=== PATIENT | female | born 1950 | race Caucasian/White ===

== ENCOUNTER 2019-03-27 15:08 | Inpatient (IN) | payer MEDICARE ==
--- NOTE | 2019-03-27 15:31 | ED ---
Weakness HPI - General Stated complaint: community aquired pneumonia Time Seen by Provider: 03/27/19 15:23 Source: RN notes reviewed, old records reviewed - History of Present Illness Initial comments: This is a 5-year-old female the ER for evasive shortness breath, significant shortness of breath and not feeling well. Patient is presented to ER for evaluation of shortness of breath found to be required pneumonia with low pulse ox. Patient symptoms are improved here in the ER denying chest pain. MD Complaint: generalized weakness, lack of energy (Shortness of breath) -: days(s) Severity: moderate Severity scale (1-10): 5 Consistency: constant Improves with: rest, medication Worsens with: movement, exertion Context: recent illness, history of similar, other (Recent diagnosis of pneumonia) Associated Symptoms: fever/chills, shortness of breath - Related Data Home Medications Medication Instructions Recorded Confirmed Losartan Potassium [Cozaar] 50 mg PO DAILY 03/27/19 03/27/19 Simvastatin [Zocor] 20 mg PO DAILY 03/27/19 03/27/19 amLODIPine [Norvasc] 5 mg PO BID 03/27/19 03/27/19 Allergies Allergy/AdvReac Type Severity Reaction Status Date / Time No Known Allergies Allergy Unverified 03/27/19 15:46 Review of Systems ROS Statement: Those systems with pertinent positive or pertinent negative responses have been documented in the HPI. ROS Other: All systems not noted in ROS Statement are negative. General Exam General appearance: alert, in no apparent distress Head exam: Present: atraumatic, normocephalic, normal inspection Eye exam: Present: normal appearance, PERRL, EOMI. Absent: scleral icterus, conjunctival injection, periorbital swelling ENT exam: Present: normal exam, mucous membranes moist Neck exam: Present: normal inspection. Absent: tenderness, meningismus, lymphadenopathy Respiratory exam: Present: normal lung sounds bilaterally, rales, rhonchi, accessory muscle use, decreased breath sounds. Absent: respiratory distress, wheezes, stridor Cardiovascular Exam: Present: regular rate, normal rhythm, normal heart sounds. Absent: systolic murmur, diastolic murmur, rubs, gallop, clicks GI/Abdominal exam: Present: soft, normal bowel sounds. Absent: distended, tenderness, guarding, rebound, rigid Extremities exam: Present: normal inspection, full ROM, normal capillary refill. Absent: tenderness, pedal edema, joint swelling, calf tenderness Back exam: Present: normal inspection Neurological exam: Present: alert, oriented X3, CN II-XII intact Psychiatric exam: Present: normal affect, normal mood Skin exam: Present: warm, dry, intact, normal color. Absent: rash Course - Reevaluation(s) Reevaluation #1: 03/27/19 15:52 Medical record and transfer paperwork is reviewed Reevaluation #2: 03/27/19 15:52 Patient's symptoms are improved Medical Decision Making - Medical Decision Making 68 female who is accepted known transferred outpatient sibs in transfer for shortness of breath positive pneumonia. Patient be admitted for IV antibiotics breathing treatments and monitoring of pulse ox - Radiology Data Radiology results: report reviewed (Chest x-ray positive for pneumonia) Disposition Clinical Impression: Community acquired bacterial pneumonia Disposition: ADMITTED IP TO THIS HOSP Condition: Fair Is patient prescribed a controlled substance at d/c from ED?: No Referrals: Gilmer Sarah MD [Primary Care Provider] - 1-2 days
[2019-03-27] MEDS ORDERED: AZITHROMYCIN 500 MG in SODIUM CHLORIDE 0.9% 250 ML IVPB STA (15:49)
[2019-03-27] MEDS ORDERED: PNEUMONIA PROTOCOL UTILIZED 1 EACH MISC PO PRN (15:49)
[2019-03-27] MEDS: SODIUM CHLORIDE 0.9% 1,000 ML IV SCH (17:20)
[2019-03-27] MEDS ORDERED: ALPRAZolam 0.25 MG TAB PO PRN (17:57)
[2019-03-27] MEDS ORDERED: HYDROmorphone 0.5 MG/0.5 ML SYRINGE IVP PRN (17:57)
[2019-03-27] MEDS: IPRATROPIUM-ALBUTEROL 3 ML NEB INHALATION SCH ×2 (18:24→20:14)
--- NOTE | 2019-03-27 18:49 | XR ---
EXAMINATION TYPE: XR chest 1V portable DATE OF EXAM: 03/27/2019 Comparison: None Clinical History: 68 year-old female CHF Findings: Heart mildly enlarged. Perihilar densities and diffuse interstitial opacities. No pleural effusion. Impression: CHF with interstitial pulmonary edema.
[2019-03-27] MEDS: methylPREDNISolone SOD SUCCI 125 MG/2 ML VIAL IV SCH (19:58)
[2019-03-27] MEDS: amLODIPine 5 MG TAB PO SCH (19:58)
[2019-03-27] MEDS: NICOTINE 14MG/24HR PATCH TRANSDERM SCH (19:58)
[2019-03-27 21:19] LABS: Glucose,Whole Blood 140 mg/dL (75-99)
[2019-03-27] MEDS: INSULIN ASPART (NovoLOG) 100 UNIT/ML VIAL SQ SCH (21:47)
--- NOTE | 2019-03-27 22:51 | HP ---
HISTORY AND PHYSICAL DATE OF SERVICE: 03/27/2019 CHIEF COMPLAINT: Shortness of breath and not feeling well. HISTORY OF PRESENT ILLNESS: This 68-year-old woman with a past medical history of multiple medical problems including history of hypertension, hyperlipidemia, history of breast cancer, history of nicotine dependence, being followed by primary physician in the outpatient setting was living in the [place] area. The patient complained of shortness of breath and cough and sputum for past several days. Patient presented to [facility]. The chest x-ray and CT scan of the chest was also done which showed bilateral pneumonia. The patient was directly transferred to [facility] to the ER for further evaluation and treatment. There is no history of any rigors, chills, history of headache, loss of conscious or seizures at this time. Patient is complaining of generalized weakness and tiredness. The patient has been followed by Dr. Sarah in the outpatient setting. PAST MEDICAL HISTORY: History of hyperlipidemia, history of breast cancer, history of breast surgery. MEDICATIONS: Home medications are: 1. Norvasc 5 mg p.o. b.i.d. 2. Zocor 20 mg daily. 3. Cozaar 50 mg daily. ALLERGIES: None. FAMILY HISTORY: No history of heart disease or strokes in the family. SOCIAL HISTORY: History of continued smoking. No history of alcohol intake. REVIEW OF SYSTEMS: ENT diminished vision, diminished hearing. CARDIOVASCULAR as mentioned earlier. RESPIRATORY: As mentioned earlier. GI no nausea or vomiting. : No dysuria. Nervous System: No numbness or weakness. ALLERGY/IMMUNOLOGY: No asthma or hayfever. MUSCULOSKELETAL: As mentioned earlier. HEMATOLOGY/ONCOLOGY: No history of anemia. ENDOCRINE: No history of diabetes or hypothyroidism. CONSTITUTIONAL: As mentioned earlier. DERMATOLOGY: Negative. RHEUMATOLOGY negative. PSYCHIATRY as mentioned. PHYSICAL EXAMINATION: Alert and oriented times three. Pulse is 75, blood pressure 125/56, respiration 20, temperature 98.4, pulse ox 97% on non-rebreather mask. HEENT: Conjunctivae normal. Oral mucosa moist. NECK is no jugular venous distention. No carotid bruit. No lymph node enlargement. CARDIOVASCULAR: S1, S2 muffled. No S3, no S4. RESPIRATORY: Breath sounds diminished in the bases. Bilateral scattered rhonchi and crackles. Expiratory wheezing also present. ABDOMEN: Soft, nontender. Nontender. No mass palpable. LEGS: No edema. No swelling. NERVOUS SYSTEM: Higher functions as mentioned earlier. Moves all 4 limbs. No focal motor or sensory deficits. LYMPHATICS: No lymph nodes palpable in the neck, axillae or groin. SKIN: No ulcer, no rashes and no bleeding. JOINTS: No active arthropathy. LAB STUDIES: At this time shows labs are pending at this time. ASSESSMENT: 1. Chronic obstructive pulmonary disease acute exacerbation with acute hypoxic respiratory failure with possible bilateral pneumonia possibly gram-negative with possible sepsis. 2. Change in mental status, metabolic encephalopathy secondary to multiple factors and possible sepsis. 3. Continued ongoing nicotine dependence. 4. Hyperlipidemia. 5. History of breast cancer surgery. 6. History of nicotine dependence. 7. Obesity, body mass of 33.5. RECOMMENDATIONS AND DISCUSSION: In this 68-year-old woman who presented with multiple complex medical issues, we will monitor the patient closely, continue the current medications, management and symptomatic treatment. We will initiate broad-spectrum IV antibiotics, steroids, bronchodilators. Closely follow with Pulmonary. Repeat x-ray. Repeat labs. Prognosis extremely guarded because of multiple complex medical issues. further recommendations to follow. Copy of this dictation being forwarded to Dr. Sarah who is the primary physician. MMODL / IJN: [id number] /
[2019-03-28] MEDS: methylPREDNISolone SOD SUCCI 125 MG/2 ML VIAL IV SCH ×5 (00:57→23:30)
[2019-03-28] MEDS: SODIUM CHLORIDE 0.9% 1,000 ML IV SCH ×2 (00:58→23:31)
[2019-03-28] MEDS: guaiFENesin-DM 100-10MG/5ML 10 ML CUP PO PRN ×3 (05:21→20:45)
[2019-03-28 07:27] LABS: Glucose,Whole Blood 175 mg/dL (75-99)
[2019-03-28] MEDS: ENOXAPARIN 40 MG/0.4 ML SYRINGE SQ SCH (08:15)
[2019-03-28] MEDS: PANTOPRAZOLE 40 MG TABLET PO SCH (08:15)
[2019-03-28] MEDS: NICOTINE 14MG/24HR PATCH TRANSDERM SCH (08:15)
[2019-03-28] MEDS: amLODIPine 5 MG TAB PO SCH ×2 (08:15→19:20)
[2019-03-28] MEDS: AZITHROMYCIN 500 MG TAB PO SCH (08:15)
[2019-03-28] MEDS: INSULIN ASPART (NovoLOG) 100 UNIT/ML VIAL SQ SCH ×4 (08:15→20:35)
[2019-03-28] MEDS: ATORVASTATIN 10 MG TAB PO SCH (08:15)
[2019-03-28] MEDS: LOSARTAN 50 MG TAB PO SCH (08:15)
[2019-03-28] MEDS: IPRATROPIUM-ALBUTEROL 3 ML NEB INHALATION SCH ×4 (09:24→18:39)
--- NOTE | 2019-03-28 10:00 | XR ---
EXAMINATION TYPE: XR chest 2V DATE OF EXAM: 03/28/2019 COMPARISON: 03/27/2019 TECHNIQUE: PA and lateral views submitted. HISTORY: Shortness of breath FINDINGS: There is a diffuse interstitial pattern and cardiomegaly. Atherosclerotic change aorta. Arthropathy o f the shoulders. The heart is enlarged. No pleural effusion. IMPRESSION: 1. Diffuse interstitial pattern correlate for venous congestion or interstitial pneumonitis.
[2019-03-28 10:47] LABS: Basophils % (A) 0 %; Eosinophils % (A) 0 %; HCT 36.7 % (34.0-46.0); HGB 11.3 gm/dL (11.4-16.0); Hypochromasia Moderate; Lymphocytes # (A) 0.7 k/uL (1.0-4.8); Lymphocytes % (A) 6 %; MCH 27.4 pg (25.0-35.0); MCHC 30.7 g/dL (31.0-37.0); MCV 89.1 fL (80.0-100.0); Mean Platelet Volume 7.5; Monocytes # (A) 0.4 k/uL (0-1.0); Monocytes % (A) 3 %; Neutrophils # (A) 9.5 k/uL (1.3-7.7); Neutrophils % (A) 89 %; Platelet Count 270 k/uL (150-450); RBC 4.12 m/uL (3.80-5.40); WBC 10.7 k/uL (3.8-10.6)
[2019-03-28 11:09] LABS: African American GFR (CKD) >90 (>60 ml/min/1.73 sqM); Anion Gap 5 mmol/L; Blood Urea Nitrogen 32 mg/dL (7-17); Calcium 8.8 mg/dL (8.4-10.2); Carbon Dioxide 32 mmol/L (22-30); Chloride 105 mmol/L (98-107); Glucose 174 mg/dL (74-99); Potassium 4.9 mmol/L (3.5-5.1); Sodium 142 mmol/L (137-145)
[2019-03-28 12:00] LABS: Glucose,Whole Blood 158 mg/dL (75-99)
--- NOTE | 2019-03-28 12:37 | P.CNPUL ---
History of Present Illness Consult date: 03/28/19 Requesting physician: Kavon Selby Reason for consult: dyspnea Chief complaint: Shortness of breath, cough, congestion History of present illness: This is a pleasant 68-year-old female patient who follows with Dr. Sarah as her primary care physician. She has a history of hypertension, hyperlipidemia, chronic tobacco dependence, breast cancer. She was transferred here from [facility] emergency room for suspected bilateral community-acquired pneumonia and altered mental status. She is seen today in consultation on the regular medical floor. She is currently awake and alert. She was quite bronchospastic and wheezy. She is currently afebrile. Maintaining O2 saturations in the low 90s on 3 L/m per nasal cannula. Hemodynamically stable. White count 10.7. Hemoglobin 11.3. Creatinine 0.56. She's been initiated on DuoNeb inhalations, antibiotics in the form of ceftriaxone and azithromycin, IV Solu-Medrol. NicoDerm patch is in place. Review of Systems REVIEW OF SYSTEMS: CONSTITUTIONAL: Denies any recent significant weight loss or weight gain. EYES: Denies change in vision. EARS, NOSE, MOUTH, THROAT: Denies headaches, denies sore throat. CARDIOVASCULAR: Denies chest pain, palpitations or syncopal episodes. RESPIRATORY: Positive for shortness of breath, cough, congestion no hemoptysis. GASTROINTESTINAL: Denies change in appetite, denies abdominal pain GENITOURINARY: Denies hematuria, denies infections. MUSKULOSKELETAL: Denies pain, denies swelling. INTEGUMENTARY: Denies rash, denies eczema. NEUROLOGICAL: Denies recent memory loss, no recent seizure activity. PSYCHIATRIC: Denies anxiety, denies depression. HEMATOLOGIC/LYMPHATIC: Denies anemia, denies enlarged lymph nodes. Past Medical History Past Medical History: Cancer, Hyperlipidemia History of Any Multi-Drug Resistant Organisms: None Reported Additional Past Surgical History / Comment(s): BREAST SX Past Psychological History: No Psychological Hx Reported Smoking Status: Current every day smoker Past Alcohol Use History: None Reported Past Drug Use History: None Reported Medications and Allergies Home Medications Medication Instructions Recorded Confirmed Type Losartan Potassium [Cozaar] 50 mg PO DAILY 03/27/19 03/27/19 History Simvastatin [Zocor] 20 mg PO DAILY 03/27/19 03/27/19 History amLODIPine [Norvasc] 5 mg PO BID 03/27/19 03/27/19 History Allergies Allergy/AdvReac Type Severity Reaction Status Date / Time No Known Allergies Allergy Unverified 03/27/19 16:11 Physical Exam Vitals: Vital Signs Temp Pulse Pulse Resp BP BP Pulse Ox 03/28/19 09:35 86 03/28/19 09:27 82 03/28/19 08:00 75 17 03/28/19 06:46 98.0 F 75 17 131/70 92 L 03/27/19 20:26 74 03/27/19 20:14 71 22 97 03/27/19 19:33 98.0 F 68 22 151/76 94 L 03/27/19 17:58 98.1 F 64 18 115/56 93 L 03/27/19 17:28 75 20 125/56 97 03/27/19 16:10 62 20 119/54 90 L 03/27/19 15:15 98.4 F 68 20 115/55 98 Intake and Output 03/27/19 03/28/19 03/28/19 22:59 06:59 14:59 Intake Total 100 Output Total 225 Balance 100 -225 Intake: Oral 100 Output: Urine 225 Other: Voiding Method Indwelling Catheter Indwelling Catheter # Bowel Movements 1 Weight 99.79 kg GENERAL EXAM: Pleasant obese 68-year-old female patient. Alert, fairly comfortable in no apparent distress. On 3 L nasal cannula. HEAD: Normocephalic. EYES: Normal reaction of pupils, equal size. NOSE: Clear with pink turbinates. THROAT: No erythema or exudates. NECK: No masses, no JVD. CHEST: No chest wall deformity. LUNGS: Equal air entry with bilateral scattered rhonchi, wheeze. CVS: S1 and S2 normal with no audible murmur, regular rhythm. ABDOMEN: No hepatosplenomegaly, normal bowel sounds, no guarding or rigidity. SPINE: No scoliosis or deformity SKIN: No rashes CENTRAL NERVOUS SYSTEM: No focal deficits, tone is normal in all 4 extremities. EXTREMITIES: There is no peripheral edema. No clubbing, no cyanosis. Periph eral pulses are intact. Results - Laboratory Findings CBC and BMP: 03/28/19 10:27 03/28/19 10:27 Abnormal lab findings: Abnormal Labs 03/27/19 03/28/19 03/28/19 21:07 07:25 10:27 WBC 10.7 H Hgb 11.3 L MCHC 30.7 L Neutrophils # 9.5 H Lymphocytes # 0.7 L Carbon Dioxide BUN Glucose POC Glucose (mg/dL) 140 H 175 H 03/28/19 03/28/19 10:27 11:58 WBC Hgb MCHC Neutrophils # Lymphocytes # Carbon Dioxide 32 H BUN 32 H Glucose 174 H POC Glucose (mg/dL) 158 H - Diagnostic Findings Chest x-ray: image reviewed Assessment and Plan Assessment: Impression: #1 Acute hypoxic respiratory failure secondary to suspected community-acquired pneumonia versus pneumonitis, COPD, pulmonary edema. #2 Altered mental status and weakness, suspect metabolic encephalopathy. Recovered. #3 Chronic and ongoing tobacco dependence. #4 Hyperlipidemia. #5 Hypertension. #6 Obesity. Plan: The patient was seen and evaluated by Dr. Brewer. Chest x-ray and labs reviewed. Suspect some component of pulmonary edema. We'll obtain a proBNP, pro-calcitonin, echocardiogram. Give Lasix 40 mg IVP 1. Continue with antibiotics, bronchodilators, steroids. She is educated regarding the importance of complete smoking cessation. NicoDerm patch is in place. We will continue to follow and make further recommendations based on her clinical statu s. I, the cosigning physician, performed a history & physical examination of the patient. Lungs sounds with crackles in posterior bases, end expiratory wheeze, diminished. Maintaining good O2 saturations in the 90s on 3 L/m per nasal cannula. I discussed the assessment and plan of care with my nurse practitioner, Grace Martin. I attest to the above note as dictated by her. Time with Patient: Greater than 30
[2019-03-28] MEDS ORDERED: FUROSEMIDE 10 MG/ML 4 ML VIAL IV STA (12:38)
[2019-03-28 17:07] LABS: Glucose,Whole Blood 163 mg/dL (75-99)
[2019-03-28] MEDS: FUROSEMIDE 10 MG/ML 2 ML VIAL IV SCH (19:20)
[2019-03-28 20:32] LABS: Glucose,Whole Blood 181 mg/dL (75-99)
--- NOTE | 2019-03-29 00:07 | P.PN ---
Subjective Progress Note Date: 03/28/19 Principal diagnosis: Community acquired pneumonia Patient is a 68-year-old female with a known history of hypertension, hyperlipidemia, chronic nicotine addiction and history of breast cancer was transferred from [facility] due to altered mental status and possible bilateral pneumonia, community-acquired. 03/28/2019 Patient is still having shortness of breath. Denied any complaints of chest pain. Does have cough without much sputum production. Currently on oxygen via nasal cannula. Currently being continued on antibiotics in the form of ceftriaxone and azithromycin. On breathing treatments and IV Solu-Medrol. Chest x-ray showed diffuse interstitial pattern correlate for venous congestion or interstitial pneumonitis. Pulmonary is following. Active Medications Generic Name Dose Route Start Last Admin Trade Name Freq PRN Reason Stop Dose Admin Albuterol/Ipratropium 3 ml 03/27/19 16:00 03/28/19 18:39 Duoneb 0.5 Mg-3 Mg/3 Ml Soln INHALATION 3 ml RT-QID YULIET Administration Alprazolam 0.25 mg 03/27/19 17:57 Xanax PO TID PRN Anxiety Amlodipine Besylate 5 mg 03/27/19 21:00 03/28/19 19:20 Norvasc PO 5 mg BID YULIET Administration Atorvastatin Calcium 10 mg 03/28/19 09:00 03/28/19 08:15 Lipitor PO 10 mg DAILY YULIET Administration Azithromycin 500 mg 03/28/19 09:00 03/28/19 08:15 Zithromax PO 500 mg DAILY YULIET Administration Enoxaparin Sodium 40 mg 03/28/19 09:00 03/28/19 08:15 Lovenox SQ 40 mg DAILY YULIET Administration Furosemide 20 mg 03/28/19 21:00 03/28/19 19:20 Lasix IV 20 mg Q12HR YULIET Administration Guaifenesin/Dextromethorphan 10 ml 03/28/19 05:01 03/28/19 20:45 Robitussin Dm PO 10 ml Q6H PRN Administration Cough Hydromorphone HCl 0.5 mg 03/27/19 17:57 Dilaudid IVP Q6HR PRN Severe Pain Ceftriaxone Sodium 1 gm/ 50 mls @ 100 mls/hr 03/28/19 09:00 03/28/19 08:19 Sodium Chloride IVPB 03/31/19 09:01 100 mls/hr Q24HR YULIET Administration Sodium Chloride 1,000 mls @ 20 mls/hr 03/27/19 16:00 03/28/19 23:31 Saline 0.9% IV Not Given .Q24H UYLIET Insulin Aspart 0 unit 03/27/19 21:00 03/28/19 20:35 Novolog SQ 2 unit ACHS YULIET Administration Protocol Losartan Potassium 50 mg 03/28/19 09:00 03/28/19 08:15 Cozaar PO 50 mg DAILY YULIET Administration Methylprednisolone Sodium Succinate 60 mg 03/27/19 18:00 03/28/19 23:30 Solu-Medrol IV 60 mg Q6HR YULIET Administration Miscellaneous Information 1 each 03/27/19 15:49 Pneumonia Protocol Utilized PO ONCE PRN Per Protocol Nicotine 1 patch 03/27/19 18:00 03/28/19 08:15 Habitrol 14mg/24hr Patch TRANSDERM 1 patch DAILY YULIET Administration Pantoprazole Sodium 40 mg 03/28/19 07:30 03/28/19 08:15 Protonix PO 40 mg [id number] YULIET Administration Objective - Vital Signs Vital signs: Vital Signs Temp 98.0 F 03/28/19 06:46 Pulse 86 03/28/19 09:35 Resp 17 03/28/19 08:00 BP 131/70 03/28/19 06:46 Pulse Ox 92 L 03/28/19 06:46 Intake & Output 03/27/19 03/28/19 03/28/19 18:59 06:59 18:59 Intake Total 100 Output Total 225 Balance -125 Weight 99.79 kg Intake: Oral 100 Output: Urine 225 Other: Voiding Method Indwelling Catheter Indwelling Catheter # Bowel Movements 1 - Exam PHYSICAL EXAMINATION: Patient is lying in the bed comfortably, no acute distress, awake alert and oriented.. HEENT: Normocephalic. Neck is supple. Pupils reactive. Nostrils clear. Oral cavity is moist. Ears reveal no drainage. Neck reveals no JVD, carotid bruits, or thyromegaly. CHEST EXAMINATION: Trachea is central. Symmetrical expansion. Bilateral coarse breath sounds and expiratory wheeze CARDIAC: Normal S1, S2 with no gallops. No murmurs ABDOMEN: Soft. Bowel sounds normal. No organomegaly. No abdominal bruits. Extremities: reveal no edema. No clubbing or cyanosis Neurologically awake, alert, oriented x3 with well-coordinated movements. No focal deficits noted Skin: No rash or skin lesions. Psychiatric: Coperative. Nonsuicidal Musculoskeletal: No joint swelling or deformity. Normal range of motion. - Labs CBC & Chem 7: 03/28/19 10:27 03/28/19 10:27 Labs: Abnormal Lab Results - Last 24 Hours (Table) 03/27/19 03/28/19 03/28/19 Range/Units 21:07 07:25 10:27 WBC 10.7 H (3.8-10.6) k/uL Hgb 11.3 L (11.4-16.0) gm/dL MCHC 30.7 L (31.0-37.0) g/dL Neutrophils # 9.5 H (1.3-7.7) k/uL Lymphocytes # 0.7 L (1.0-4.8) k/uL Carbon Dioxide (22-30) mmol/L BUN (7-17) mg/dL Glucose (74-99) mg/dL POC Glucose (mg/dL) 140 H 175 H (75-99) mg/dL 03/28/19 03/28/19 Range/Units 10:27 11:58 WBC (3.8-10.6) k/uL Hgb (11.4-16.0) gm/dL MCHC (31.0-37.0) g/dL Neutrophils # (1.3-7.7) k/uL Lymphocytes # (1.0-4.8) k/uL Carbon Dioxide 32 H (22-30) mmol/L BUN 32 H (7-17) mg/dL Glucose 174 H (74-99) mg/dL POC Glucose (mg/dL) 158 H (75-99) mg/dL Assessment and Plan Assessment: Acute hypoxic respiratory failure secondary to COPD exacerbation Possible community-acquired pneumonia Pulmonary venous congestion and interstitial pneumonitis Hypertension Hyperlipidemia Obesity with BMI 33.5 Ongoing nicotine addiction Plan: Patient be continued on IV antibiotics in the form of ceftriaxone and azithromycin. Continue with IV steroids and breathing treatments. Will hold IV fluids and continued with the oxygen therapy and monitor closely. Pulmonary was consulted. Smoking cessation has been counseled extensively. Further recommendations based on the clinical course. Time with Patient: Greater than 30
[2019-03-29] MEDS: methylPREDNISolone SOD SUCCI 125 MG/2 ML VIAL IV SCH ×4 (02:54→23:17)
[2019-03-29] MEDS: guaiFENesin-DM 100-10MG/5ML 10 ML CUP PO PRN (02:54)
[2019-03-29 06:59] LABS: Glucose,Whole Blood 171 mg/dL (75-99)
[2019-03-29] MEDS: IPRATROPIUM-ALBUTEROL 3 ML NEB INHALATION SCH ×4 (07:26→20:14)
--- NOTE | 2019-03-29 07:50 | XR ---
EXAMINATION TYPE: XR chest 1V DATE OF EXAM: 03/29/2019 COMPARISON: 04/07/2018 HISTORY: Shortness of breath TECHNIQUE: Single frontal view of the chest is obtained. FINDINGS: There is a diffuse interstitial pattern and cardiomegaly. Atherosclerotic change aorta. Ar thropathy of the shoulders. The heart is enlarged. No pleural effusion. IMPRESSION: 1. Diffuse interstitial pattern correlate for venous congestion or interstitial pneumonitis. Findings stable.
[2019-03-29] MEDS: amLODIPine 5 MG TAB PO SCH ×2 (08:04→19:59)
[2019-03-29] MEDS: LOSARTAN 50 MG TAB PO SCH (08:04)
[2019-03-29] MEDS: PANTOPRAZOLE 40 MG TABLET PO SCH (08:10)
[2019-03-29] MEDS: ATORVASTATIN 10 MG TAB PO SCH (08:10)
[2019-03-29] MEDS: NICOTINE 14MG/24HR PATCH TRANSDERM SCH (08:10)
[2019-03-29] MEDS: FUROSEMIDE 10 MG/ML 2 ML VIAL IV SCH (08:10)
[2019-03-29] MEDS: ENOXAPARIN 40 MG/0.4 ML SYRINGE SQ SCH (08:11)
[2019-03-29] MEDS: INSULIN ASPART (NovoLOG) 100 UNIT/ML VIAL SQ SCH ×4 (08:11→21:11)
[2019-03-29] MEDS: AZITHROMYCIN 500 MG TAB PO SCH (08:11)
--- NOTE | 2019-03-29 09:11 | ECHOF ---
Referral Reason:Pulmonary edema MEASUREMENTS -------- HEIGHT: 172.7 cm WEIGHT: 99.8 kg BP: 131/70 RVIDd: 3.5 cm (< 3.3) IVSd: 1.2 cm (0.6 - 1.1) LVIDd: 5.2 cm (3.9 - 5.3) LVPWd: 1.3 cm (0.6 - 1.1) IVSs: 1.5 cm LVIDs: 4.0 cm LVPWs: 1.7 cm LA Diam: 3.9 cm (2.7 - 3.8) LAESV Index (A-L): 17.39 ml/m Ao Diam: 3.1 cm (2.0 - 3.7) AV Cusp: 2.0 cm (1.5 - 2.6) EPSS: 0.5 cm MV E Spencer: 1.25 m/s MV DecT: 226 ms MV A Spencer: 0.89 m/s MV E/A Ratio: 1.41 AV maxP.02 mmHg AV meanP.16 mmHg RAP: 15.00 mmHg RVSP: 51.99 mmHg MV EF SLOPE: 65.00 mm/s (70 - 150) MV EXCURSION: 1.62 cm (> 18.000) FINDINGS -------- Sinus rhythm. This was a technically good study. The left ventricular size is normal. There is mild concentric left ventricular hypertrophy. Overa ll left ventricular systolic function is normal with, an EF between 60 - 65 %. The right ventricle is mildly enlarged. Left atrium is normal size by volume. The right atrium is normal in size and function. Interatrial and interventricular septum intact. Aortic valve is trileaflet and is mildly thickened. Peak/mean gradient across the valve is 14.02mmH g / 8.16mmHg. The mitral valve leaflets are mildly thickened. Mild mitral regurgitation is present. Mild tricuspid regurgitation present. There is moderate pulmonary hypertension. The right ventric ular systolic pressure, as measured by Doppler, is 51.99mmHg. Trace/mild (physiologic) pulmonic regurgitation. The aortic root size is normal. The inferior vena cava is dilated with poor inspiratory collapse which is consistent with estimated r ight atrial pressure of 15 mmHg. There is no pericardial effusion. CONCLUSIONS -------- 1. Sinus rhythm. 2. This was a technically good study. 3. The left ventricular size is normal. 4. There is mild concentric left ventricular hypertrophy. 5. Overall left ventricular systolic function is normal with, an EF between 60 - 65 %. 6. The right ventricle is mildly enlarged. 7. Left atrium is normal size by volume. 8. The right atrium is normal in size and function. 9. Interatrial and interventricular septum intact. 10. Aortic valve is trileaflet and is mildly thickened. 11. Peak/mean gradient across the valve is 14.02mmHg / 8.16mmHg. 12. The mitral valve leaflets are mildly thickened. 13. Mild mitral regurgitation is present. 14. Mild tricuspid regurgitation present. 15. There is moderate pulmonary hypertension. 16. The right ventricular systolic pressure, as measured by Doppler, is 51.99mmHg. 17. Trace/mild (physiologic) pulmonic regurgitation. 18. The aortic root size is normal. 19. The inferior vena cava is dilated with poor inspiratory collapse which is consistent with estimat ed right atrial pressure of 15 mmHg. 20. There is no pericardial effusion. CAPACITY MANAGER: HARSHIL Sandy
[2019-03-29 10:12] LABS: Basophils % (A) 0 %; Eosinophils % (A) 0 %; HCT 39.4 % (34.0-46.0); HGB 11.9 gm/dL (11.4-16.0); Hypochromasia Slight; Lymphocytes # (A) 0.7 k/uL (1.0-4.8); Lymphocytes % (A) 5 %; MCH 26.7 pg (25.0-35.0); MCHC 30.2 g/dL (31.0-37.0); MCV 88.5 fL (80.0-100.0); Mean Platelet Volume 7.9; Monocytes # (A) 0.4 k/uL (0-1.0); Monocytes % (A) 3 %; Neutrophils # (A) 12.5 k/uL (1.3-7.7); Neutrophils % (A) 91 %; Platelet Count 353 k/uL (150-450); RBC 4.45 m/uL (3.80-5.40); RDW 13.3 % (11.5-15.5); WBC 13.8 k/uL (3.8-10.6)
[2019-03-29 10:27] LABS: Calcium 9.3 mg/dL (8.4-10.2); Potassium 4.5 mmol/L (3.5-5.1)
[2019-03-29 11:52] LABS: Glucose,Whole Blood 210 mg/dL (75-99)
--- NOTE | 2019-03-29 13:43 | P.PN ---
Subjective Progress Note Date: 03/29/19 Principal diagnosis: Shortness of breath, cough and congestion This is a pleasant 68-year-old female patient who follows with Dr. Sarah as her primary care physician. She has a history of hypertension, hyperlipidemia, chronic tobacco dependence, breast cancer. She was transferred here from [place] emergency room for suspected bilateral community-acquired pneumonia and altered mental status. She is seen today in consultation on the regular medical floor. She is currently awake and alert. She was quite bronchospastic and wheezy. She is currently afebrile. Maintaining O2 saturations in the low 90s on 3 L/m per nasal cannula. Hemodynamically stable. White count 10.7. Hemoglobin 11.3. Creatinine 0.56. She's been initiated on DuoNeb inhalations, antibiotics in the form of ceftriaxone and azithromycin, IV Solu-Medrol. NicoDerm patch is in place. On 03/29/2017 patient seen in follow-up on medical surgical floor. Still wheezy and congested, but slightly improved since yesterday, still coughing quite a bit. Today's chest x-ray has been reviewed showing diffuse interstitial pattern and interstitial prominence, likely related to fluid overload and congestive heart failure. She is maintaining negative fluid balance, remains on IV Lasix at 20 mg every 12 hours, we'll increase IV Lasix. His labs have been reviewed, showing white blood cell count of 13.8, hemoglobin of 11.9, electrolytes were within normal limits, BUN is 50, creatinine 0.85. Objective - Vital Signs Vital signs: Vital Signs Temp 98.8 F 03/29/19 05:00 Pulse 78 03/29/19 11:21 Resp 20 03/29/19 05:00 BP 99/70 03/29/19 05:00 Pulse Ox 95 03/29/19 07:26 Intake & Output 03/28/19 03/29/19 03/29/19 18:59 06:59 18:59 Intake Total 50 Output Total 800 100 Balance -800 -100 50 Weight 98.43 kg Intake: IV 50 cefTRIAXone 1 gm In 50 Sodium Chloride 0.9% 50 ml @ 100 mls/hr IVPB Q24HR [facility] Rx#:[id number] Output: Urine 800 100 Other: Voiding Method Bedside Commode Bedside Commode # Voids 3 1 # Bowel Movements 1 - Exam GENERAL EXAM: Alert, pleasant, 68-year-old white female seen in bed, on 2 L of oxygen, has frequent congested cough comfortable in no apparent distress. HEAD: Normocephalic/atraumatic. EYES: Normal reaction of pupils, equal size. Conjunctiva pink, sclera white. NOSE: Clear with pink turbinates. THROAT: No erythema or exudates. NECK: No masses, no JVD, no thyroid enlargement, no adenopathy. CHEST: No chest wall deformity. Symmetrical expansion. LUNGS: Equal air entry with diffuse wheezes and rhonchi CVS: Regular rate and rhythm, normal S1 and S2, no gallops, no murmurs, no rubs ABDOMEN: Soft, nontender. No hepatosplenomegaly, normal bowel sounds, no guarding or rigidity. EXTREMITIES: No clubbing, no edema, no cyanosis, 2+ pulses and upper and lower extremities. MUSCULOSKELETAL: Muscle strength and tone normal. SPINE: No scoliosis or deformity SKIN: No rashes CENTRAL NERVOUS SYSTEM: Alert and oriented -3. No focal deficits, tone is normal in all 4 extremities. PSYCHIATRIC: Alert and oriented -3. Appropriate affect. Intact judgment and insight. - Labs CBC & Chem 7: 03/29/19 09:18 03/29/19 09:18 Labs: Abnormal Lab Results - Last 24 Hours (Table) 03/28/19 03/28/19 03/29/19 Range/Units 17:03 20:04 06:44 WBC (3.8-10.6) k/uL MCHC (31.0-37.0) g/dL Neutrophils # (1.3-7.7) k/uL Lymphocytes # (1.0-4.8) k/uL BUN (7-17) mg/dL Glucose (74-99) mg/dL POC Glucose (mg/dL) 163 H 181 H 171 H (75-99) mg/dL 03/29/19 03/29/19 03/29/19 Range/Units 09:18 09:18 11:27 WBC 13.8 H (3.8-10.6) k/uL MCHC 30.2 L (31.0-37.0) g/dL Neutrophils # 12.5 H (1.3-7.7) k/uL Lymphocytes # 0.7 L (1.0-4.8) k/uL BUN 50 H (7-17) mg/dL Glucose 237 H (74-99) mg/dL POC Glucose (mg/dL) 210 H (75-99) mg/dL Microbiology - Last 24 Hours (Table) 03/27/19 16:45 Blood Culture - Preliminary Blood No Growth after 24 hours Assessment and Plan Plan: Assessment: #1 Acute hypoxic respiratory failure secondary to COPD and acute exacerbation of congestive heart failure with preserved systolic function and pulmonary edema. #2 Altered mental status and weakness, suspect metabolic encephalopathy. Recovered. #3 Chronic and ongoing tobacco dependence. #4 Hyperlipidemia. #5 Hypertension. #6 Obesity. #7 moderate pulmonary hypertension, with right ventricular systolic pressure of 51.9 mmHg. Plan: We'll increase IV Lasix to 40 mg every 12 hours, continue with IV steroids, antibiotics, and nebulized bronchodilators. Blood culture showed no growth, there is no fever chills, echocardiogram results have been reviewed, pro- calcitonin level is low. Sounds slightly improved, although still congested and wheezy. We'll continue with current medical treatment, I performed a history & physical examination of the patient and discussed their management with my nurse practitioner, Louise Andersen. I reviewed the nurse practitioner's note and agree with the documented findings and plan of care. Lung sounds are positive for diffuse wheezes throughout the lung goldsmith. The findings and the impression was discussed with the patient. I attest to the documentation by the nurse practitioner. Time with Patient: Less than 30
[2019-03-29 17:16] LABS: Glucose,Whole Blood 171 mg/dL (75-99)
[2019-03-29] MEDS: FUROSEMIDE 10 MG/ML 4 ML VIAL IV SCH (19:59)
[2019-03-29 20:52] LABS: Glucose,Whole Blood 243 mg/dL (75-99)
[2019-03-29 21:27] VITALS: RESP 18
--- NOTE | 2019-03-30 02:02 | P.PN ---
Subjective Progress Note Date: 03/29/19 Principal diagnosis: Community acquired pneumonia Patient is a 68-year-old female with a known history of hypertension, hyperlipidemia, chronic nicotine addiction and history of breast cancer was transferred from [facility] due to altered mental status and possible bilateral pneumonia, community-acquired. 03/28/2019 Patient is still having shortness of breath. Denied any complaints of chest pain. Does have cough without much sputum production. Currently on oxygen via nasal cannula. Currently being continued on antibiotics in the form of ceftriaxone and azithromycin. On breathing treatments and IV Solu-Medrol. Chest x-ray showed diffuse interstitial pattern correlate for venous congestion or interstitial pneumonitis. Pulmonary is following. 03/29/2019 Patient is currently sitting in a chair comfortably. Saturating about 90% on 2 L nausea cannula. Overall breathing status is improving. Patient is being continued on IV Lasix and steroids and breathing treatments. 2-D echocardiogram will be done. Continue with antibiotics. Pulmonary is on board. No nausea vomiting or abdominal pain. No diarrhea. Overall improving. Active Medications Generic Name Dose Route Start Last Admin Trade Name Freq PRN Reason Stop Dose Admin Albuterol/Ipratropium 3 ml 03/27/19 16:00 03/28/19 18:39 Duoneb 0.5 Mg-3 Mg/3 Ml Soln INHALATION 3 ml RT-QID YULIET Administration Alprazolam 0.25 mg 03/27/19 17:57 Xanax PO TID PRN Anxiety Amlodipine Besylate 5 mg 03/27/19 21:00 03/28/19 19:20 Norvasc PO 5 mg BID YULIET Administration Atorvastatin Calcium 10 mg 03/28/19 09:00 03/28/19 08:15 Lipitor PO 10 mg DAILY YULIET Administration Azithromycin 500 mg 03/28/19 09:00 03/28/19 08:15 Zithromax PO 500 mg DAILY YULIET Administration Enoxaparin Sodium 40 mg 03/28/19 09:00 03/28/19 08:15 Lovenox SQ 40 mg DAILY YULIET Administration Furosemide 20 mg 03/28/19 21:00 03/28/19 19:20 Lasix IV 20 mg Q12HR YULIET Administration Guaifenesin/Dextromethorphan 10 ml 03/28/19 05:01 03/28/19 20:45 Robitussin Dm PO 10 ml Q6H PRN Administration Cough Hydromorphone HCl 0.5 mg 03/27/19 17:57 Dilaudid IVP Q6HR PRN Severe Pain Ceftriaxone Sodium 1 gm/ 50 mls @ 100 mls/hr 03/28/19 09:00 03/28/19 08:19 Sodium Chloride IVPB 03/31/19 09:01 100 mls/hr Q24HR YULIET Administration Sodium Chloride 1,000 mls @ 20 mls/hr 03/27/19 16:00 03/28/19 23:31 Saline 0.9% IV Not Given .Q24H YULIET Insulin Aspart 0 unit 03/27/19 21:00 03/28/19 20:35 Novolog SQ 2 unit ACHS YULIET Administration Protocol Losartan Potassium 50 mg 03/28/19 09:00 03/28/19 08:15 Cozaar PO 50 mg DAILY YULIET Administration Methylprednisolone Sodium Succinate 60 mg 03/27/19 18:00 03/28/19 23:30 Solu-Medrol IV 60 mg Q6HR YULIET Administration Miscellaneous Information 1 each 03/27/19 15:49 Pneumonia Protocol Utilized PO ONCE PRN Per Protocol Nicotine 1 patch 03/27/19 18:00 03/28/19 08:15 Habitrol 14mg/24hr Patch TRANSDERM 1 patch DAILY YULIET Administration Pantoprazole Sodium 40 mg 03/28/19 07:30 03/28/19 08:15 Protonix PO 40 mg [id number] YULIET Administration Objective - Vital Signs Vital signs: Vital Signs Temp 98.2 F 03/29/19 21:00 Pulse 52 L 03/29/19 21:00 Resp 18 03/29/19 21:00 BP 136/67 03/29/19 21:00 Pulse Ox 95 03/29/19 21:00 Intake & Output 03/29/19 03/29/19 03/30/19 06:59 18:59 06:59 Intake Total 590 Output Total 100 Balance -100 590 Weight 98.43 kg Intake: IV 50 cefTRIAXone 1 gm In 50 Sodium Chloride 0.9% 50 ml @ 100 mls/hr IVPB Q24HR YULIET Rx#:[id number] Oral 540 Output: Urine 100 Other: Voiding Method Bedside Commode # Voids 1 8 1 - Exam PHYSICAL EXAMINATION: Patient is lying in the bed comfortably, no acute distress, awake alert and oriented.. HEENT: Normocephalic. Neck is supple. Pupils reactive. Nostrils clear. Oral cavity is moist. Ears reveal no drainage. Neck reveals no JVD, carotid bruits, or thyromegaly. CHEST EXAMINATION: Trachea is central. Symmetrical expansion. Scattered rhonchi and left basilar crackles. CARDIAC: Normal S1, S2 with no gallops. No murmurs ABDOMEN: Soft. Bowel sounds normal. No organomegaly. No abdominal bruits. Extremities: reveal no edema. No clubbing or cyanosis Neurologically awake, alert, oriented x3 with well-coordinated movements. No focal deficits noted Skin: No rash or skin lesions. Psychiatric: Coperative. Nonsuicidal Musculoskeletal: No joint swelling or deformity. Normal range of motion. - Labs CBC & Chem 7: 03/29/19 09:18 03/29/19 09:18 Labs: Abnormal Lab Results - Last 24 Hours (Table) 03/29/19 03/29/19 03/29/19 Range/Units 06:44 09:18 09:18 WBC 13.8 H (3.8-10.6) k/uL MCHC 30.2 L (31.0-37.0) g/dL Neutrophils # 12.5 H (1.3-7.7) k/uL Lymphocytes # 0.7 L (1.0-4.8) k/uL BUN 50 H (7-17) mg/dL Glucose 237 H (74-99) mg/dL POC Glucose (mg/dL) 171 H (75-99) mg/dL 03/29/19 03/29/19 03/29/19 Range/Units 11:27 16:54 20:51 WBC (3.8-10.6) k/uL MCHC (31.0-37.0) g/dL Neutrophils # (1.3-7.7) k/uL Lymphocytes # (1.0-4.8) k/uL BUN (7-17) mg/dL Glucose (74-99) mg/dL POC Glucose (mg/dL) 210 H 171 H 243 H (75-99) mg/dL Microbiology - Last 24 Hours (Table) 03/27/19 16:45 Blood Culture - Preliminary Blood No Growth after 48 hours Assessment and Plan Assessment: Acute hypoxic respiratory failure secondary to COPD exacerbation Possible community-acquired pneumonia Pulmonary venous congestion and interstitial pneumonitis Hypertension Hyperlipidemia Obesity with BMI 33.5 Ongoing nicotine addiction Plan: Patient be continued on IV antibiotics in the form of ceftriaxone and azithromycin. Continue with IV steroids and breathing treatments. Will hold IV fluids and continued with the oxygen therapy and monitor closely. Pulmonary was consulted. Smoking cessation has been counseled extensively. Further recommendations based on the clinical course. Time with Patient: Greater than 30
[2019-03-30] MEDS: SODIUM CHLORIDE 0.9% 1,000 ML IV SCH (02:43)
[2019-03-30] MEDS: methylPREDNISolone SOD SUCCI 125 MG/2 ML VIAL IV SCH ×2 (05:15→11:38)
[2019-03-30 07:24] LABS: Glucose,Whole Blood 153 mg/dL (75-99)
[2019-03-30] MEDS: ENOXAPARIN 40 MG/0.4 ML SYRINGE SQ SCH (08:00)
[2019-03-30] MEDS: NICOTINE 14MG/24HR PATCH TRANSDERM SCH (08:00)
[2019-03-30] MEDS: FUROSEMIDE 10 MG/ML 4 ML VIAL IV SCH (08:00)
[2019-03-30] MEDS: PANTOPRAZOLE 40 MG TABLET PO SCH (08:01)
[2019-03-30] MEDS: ATORVASTATIN 10 MG TAB PO SCH (08:01)
[2019-03-30] MEDS: AZITHROMYCIN 500 MG TAB PO SCH (08:01)
[2019-03-30] MEDS: amLODIPine 5 MG TAB PO SCH (08:01)
[2019-03-30] MEDS: INSULIN ASPART (NovoLOG) 100 UNIT/ML VIAL SQ SCH ×2 (08:01→12:19)
[2019-03-30] MEDS: LOSARTAN 50 MG TAB PO SCH (08:02)
[2019-03-30 08:12] LABS: Basophils % (A) 0 %; Eosinophils % (A) 0 %; HGB 12.2 gm/dL (11.4-16.0); Hypochromasia Moderate; Lymphocytes # (A) 0.8 k/uL (1.0-4.8); Lymphocytes % (A) 6 %; MCH 26.7 pg (25.0-35.0); MCHC 30.5 g/dL (31.0-37.0); MCV 87.4 fL (80.0-100.0); Monocytes # (A) 0.4 k/uL (0-1.0); Monocytes % (A) 3 %; Neutrophils % (A) 90 %; Platelet Count 342 k/uL (150-450); RBC 4.58 m/uL (3.80-5.40); RDW 14.2 % (11.5-15.5); WBC 13.4 k/uL (3.8-10.6)
[2019-03-30 08:25] LABS: Calcium 9.3 mg/dL (8.4-10.2)
[2019-03-30] MEDS: IPRATROPIUM-ALBUTEROL 3 ML NEB INHALATION SCH ×2 (09:09→11:08)
[2019-03-30 12:01] LABS: Glucose,Whole Blood 215 mg/dL (75-99)
--- NOTE | 2019-03-30 13:29 | P.PN ---
Subjective Progress Note Date: 03/30/19 Principal diagnosis: Shortness of breath, cough and congestion This is a pleasant 68-year-old female patient who follows with Dr. Sarah as her primary care physician. She has a history of hypertension, hyperlipidemia, chronic tobacco dependence, breast cancer. She was transferred here from [place] emergency room for suspected bilateral community-acquired pneumonia and altered mental status. She is seen today in consultation on the regular medical floor. She is currently awake and alert. She was quite bronchospastic and wheezy. She is currently afebrile. Maintaining O2 saturations in the low 90s on 3 L/m per nasal cannula. Hemodynamically stable. White count 10.7. Hemoglobin 11.3. Creatinine 0.56. She's been initiated on DuoNeb inhalations, antibiotics in the form of ceftriaxone and azithromycin, IV Solu-Medrol. NicoDerm patch is in place. On 03/29/2017 patient seen in follow-up on medical surgical floor. Still wheezy and congested, but slightly improved since yesterday, still coughing quite a bit. Today's chest x-ray has been reviewed showing diffuse interstitial pattern and interstitial prominence, likely related to fluid overload and congestive heart failure. She is maintaining negative fluid balance, remains on IV Lasix at 20 mg every 12 hours, we'll increase IV Lasix. His labs have been reviewed, showing white blood cell count of 13.8, hemoglobin of 11.9, electrolytes were within normal limits, BUN is 50, creatinine 0.85. On 03/30/2019 patient is seen in follow-up on medical surgical floor. feeling significantly better, less congested and wheezy, currently improved since yesterday, cough has subsided, some chest pain, yesterday we increased the patient's IV Lasix, patient is down 1.5 kg since yesterday. SHe has been ambul ating, tolerated activity well, lung sounds reveal minimal wheezing and rhonchi. White blood cell count of 13.4, hemoglobin of 12.2, sodium is 143, potassium is 5.0, chloride is 102, CO2 is 33, B1 is 60, creatinine is 0.86. Echocardiogram showed preserved left ventricular systolic function with an EF of 60-65% and moderate pulmonary hypertension with right-sided pressures of 51.9 mmHg. Objective - Vital Signs Vital signs: Vital Signs Temp 98.1 F 03/30/19 05:30 Pulse 77 03/30/19 11:16 Resp 18 03/30/19 05:30 BP 96/54 03/30/19 05:30 Pulse Ox 94 L 03/30/19 05:30 Intake & Output 03/29/19 03/30/19 03/30/19 18:59 06:59 18:59 Intake Total 590 Balance 590 Weight 96.9 kg Intake: IV 50 cefTRIAXone 1 gm In 50 Sodium Chloride 0.9% 50 ml @ 100 mls/hr IVPB Q24HR [facility] Rx#:[id number] Oral 540 Other: # Voids 8 3 - Exam GENERAL EXAM: Alert, pleasant, 68-year-old white female seen in bed, on room air, comfortable in no apparent distress. HEAD: Normocephalic/atraumatic. EYES: Normal reaction of pupils, equal size. Conjunctiva pink, sclera white. NOSE: Clear with pink turbinates. THROAT: No erythema or exudates. NECK: No masses, no JVD, no thyroid enlargement, no adenopathy. CHEST: No chest wall deformity. Symmetrical expansion. LUNGS: Equal air entry with minimal wheezes and rhonchi CVS: Regular rate and rhythm, normal S1 and S2, no gallops, no murmurs, no rubs ABDOMEN: Soft, nontender. No hepatosplenomegaly, normal bowel sounds, no guarding or rigidity. EXTREMITIES: No clubbing, no edema, no cyanosis, 2+ pulses and upper and lower extremities. MUSCULOSKELETAL: Muscle strength and tone normal. SPINE: No scoliosis or deformity SKIN: No rashes CENTRAL NERVOUS SYSTEM: Alert and oriented -3. No focal deficits, tone is normal in all 4 extremities. PSYCHIATRIC: Alert and oriented -3. Appropriate affect. Intact judgment and insight. - Labs CBC & Chem 7: 03/30/19 07:56 03/30/19 07:56 Labs: Abnormal Lab Results - Last 24 Hours (Table) 03/29/19 03/29/19 03/30/19 Range/Units 16:54 20:51 07:00 WBC (3.8-10.6) k/uL MCHC (31.0-37.0) g/dL Neutrophils # (1.3-7.7) k/uL Lymphocytes # (1.0-4.8) k/uL Carbon Dioxide (22-30) mmol/L BUN (7-17) mg/dL Glucose (74-99) mg/dL POC Glucose (mg/dL) 171 H 243 H 153 H (75-99) mg/dL 03/30/19 03/30/19 03/30/19 Range/Units 07:56 07:56 11:43 WBC 13.4 H (3.8-10.6) k/uL MCHC 30.5 L (31.0-37.0) g/dL Neutrophils # 12.0 H (1.3-7.7) k/uL Lymphocytes # 0.8 L (1.0-4.8) k/uL Carbon Dioxide 33 H (22-30) mmol/L BUN 60 H (7-17) mg/dL Glucose 161 H (74-99) mg/dL POC Glucose (mg/dL) 215 H (75-99) mg/dL Microbiology - Last 24 Hours (Table) 03/27/19 16:45 Blood Culture - Preliminary Blood No Growth after 48 hours Assessment and Plan Plan: Assessment: #1 Acute hypoxic respiratory failure secondary to COPD and acute exacerbation of congestive heart failure with preserved systolic function and pulmonary edema. #2 Altered mental status and weakness, suspect metabolic encephalopathy. Recovered. #3 Chronic and ongoing tobacco dependence. #4 Hyperlipidemia. #5 Hypertension. #6 Obesity. #7 moderate pulmonary hypertension, with right ventricular systolic pressure of 51.9 mmHg. Plan: Patient is improving, breathing easier, yesterday we increased the patient's Lasix, and patient is in negative fluid balance, minimal wheezing and rhonchi on today's exam, patient is ambulating, on room air, tolerating activity quite well. Blood culture showed no growth at 48 hours. From pulmonary perspective patient can be considered for discharge home on oral Lasix at 20 mg daily, prednisone taper and oral course of antibiotics. Follow-up with Dr. Sebastian in 10 days. Smoking cessation was advised, patient declined prescription for any inhalers or nebulized treatments at home I performed a history & physical examination of the patient and discussed their management with my nurse practitioner, Louise Andersen. I reviewed the nurse practitioner's note and agree with the documented findings and plan of care. Lung sounds are positive for diffuse wheezes throughout the lung goldsmith. The findings and the impression was discussed with the patient. I attest to the documentation by the nurse practitioner. Time with Patient: Less than 30
[2019-03-30] MEDS ORDERED: predniSONE 20 MG TAB PO STA (13:39)
[2019-03-30 15:04] VITALS: BP 121/67; PULSE 76; TEMP 97.9
[2019-03-30] MEDS ORDERED: methylPREDNISolone SOD SUCCI 40 MG/ML 1 ML VIAL IV SCH (16:00)
--- NOTE | 2019-03-31 12:36 | CDI ---
Documentation Clarification Form Date: 03/31/19 From: Diane Munoz Phone: If you have a question regarding this query, please contact Sandra Ferrara at [phone] between 8am and 5pm. Admit Date: 03/27/2019 3:49:00 PM Patient Name: Mar Loredo Visit Number: [id number] Discharge Date: 03/30/2019 2:58:00 PM ATTENTION: The Clinical Documentation Specialists (CDI) and [facility] Coding Staff appreciate your assistance in clarifying documentation. Please respond to the clarification below the line at the bottom and electronically sign. The CDI & [facility] Coding staff will review the response and follow-up if needed. Please note: Queries are made part of the Legal Health Record. If you have any questions, please contact the author of this message via ITS. Dr. Kavon Selby The patient presented with community acquired pneumonia. History/Risk Factors: Patient also had metabolic encephalopathy and COPD exacerbation. Clinical Indicators: Elevated WBC, WBC: 10.7 Lactic acid: Not tested. Blood cultures: No growth. Vitals signs on admission: T. 98.4, P. 68, R. 20, BP 115/55 Treatment: Antibiotics: IV and PO Zithromax, IV Rocephin IV Bolus: No bolus In your professional opinion, please clarify if these findings signify one of the following conditions, whether the condition is POA, and cause, if known: Sepsis ruled out SIRS, without underlying infectious process Sepsis Severe Sepsis Septic Shock Other, please specify Unable to determine Unable to determine MTDD
== END 2019-03-30 14:58 | disposition home or self-care (01) | DRG 291 ==
LOC: EC 15:08 → 4MS4W 15:49
PROVIDERS: ADMIT Hospitalist; ATTEND Hospitalist
DX: I11.0 Hypertensive heart disease with heart failure (principal); J18.9 Pneumonia, unspecified organism; G93.41 Metabolic encephalopathy; J96.01 Acute respiratory failure with hypoxia; J44.0 Chronic obstructive pulmonary disease with (acute) lower respiratory infection; J44.1 Chronic obstructive pulmonary disease with (acute) exacerbation; I50.33 Acute on chronic diastolic (congestive) heart failure; I27.20 Pulmonary hypertension, unspecified; E66.9 Obesity, unspecified; E78.5 Hyperlipidemia, unspecified; F17.200 Nicotine dependence, unspecified, uncomplicated; F41.9 Anxiety disorder, unspecified; H54.7 Unspecified visual loss; H91.90 Unspecified hearing loss, unspecified ear; Z68.33 Body mass index [BMI] 33.0-33.9, adult; Z79.899 Other long term (current) drug therapy; Z85.3 Personal history of malignant neoplasm of breast
CPT/HCPCS: 36415; 71045; 71046; 80048; 83880; 84145; 85025; 87040; 93306; 94640; 94760; 99284

== ENCOUNTER 2021-04-01 23:13 | Inpatient (IN) | payer MEDICARE ==
[2021-04-02] MEDS ORDERED: ALBUTEROL NEBULIZED 2.5 MG/3 ML INHALATION PRN (00:08)
[2021-04-02] MEDS ORDERED: PNEUMONIA PROTOCOL UTILIZED 1 EACH MISC PO PRN (00:08)
[2021-04-02] MEDS ORDERED: SODIUM CHLORIDE 0.9% 1,000 ML IV SCH (00:15)
--- NOTE | 2021-04-02 00:29 | ED ---
SOB HPI - General Chief Complaint: Shortness of Breath Stated Complaint: SOB Time Seen by Provider: 04/01/21 23:18 Source: EMS Mode of arrival: EMS Limitations: altered mental status - History of Present Illness Initial Comments: This patient is 70-year-old woman transferred here from [facility]. She had gone there shortly after 6 PM tonight. Most of the history. Had been given by the patient's , who reported that the patient had been having shortness of breath than usual, been coughing, and she had low pulse oximetry numbers checked the home. They reported readings down into the 40s. The patient's workup at the other hospital included labs, computed tomography scan of chest and brain. The studies did reveal some bilateral lower lung pneumonia. Also observed were emphysematous changes and bilateral pleural effusions. The patient is reportedly on 24-hour nasal cannula oxygen. At the other facility she was having sats in the 80s at her usual setting so they did place her on O2 by mask and transferred here. When I interview the patient, she is complaining only of pain to her buttocks from sitting on the stretcher for transport. Patient does acknowledge cough. MD Complaint: shortness of breath Onset/Timin -: days(s) Consistency: constant Improves With: nothing Worsens With: nothing Known History Of: COPD Associated Symptoms: cough Treatments Prior to Arrival: oxygen, other - Related Data Home Medications Medication Instructions Recorded Confirmed Losartan Potassium [Cozaar] 50 mg PO DAILY 03/27/19 04/01/21 Simvastatin [Zocor] 20 mg PO DAILY 03/27/19 04/01/21 amLODIPine [Norvasc] 5 mg PO DAILY 03/27/19 04/01/21 Amiodarone [Cordarone] 200 mg PO DAILY 04/01/21 04/01/21 Apixaban [Eliquis] 5 mg PO BID 04/01/21 04/01/21 Aspirin EC [Ecotrin Low Dose] 81 mg PO DAILY 04/01/21 04/01/21 Digoxin [Lanoxin] 125 mcg PO DAILY 04/01/21 04/01/21 Allergies Allergy/AdvReac Type Severity Reaction Status Date / Time No Known Allergies Allergy Verified 04/01/21 23:33 Review of Systems ROS Statement: Those systems with pertinent positive or pertinent negative responses have been documented in the HPI. ROS Other: All systems not noted in ROS Statement are negative. Limitations: ROS unobtainable due to patients medical condition Constitutional: Reports: weakness. Denies: fever Respiratory: Reports: cough, dyspnea Cardiovascular: Denies: chest pain Gastrointestinal: Denies: abdominal pain, vomiting Musculoskeletal: Denies: back pain Neurological: Denies: headache Past Medical History Past Medical History: Cancer, Hyperlipidemia Additional Past Medical History / Comment(s): wears o2 at home, family reports int moments of confusion at times. History of Any Multi-Drug Resistant Organisms: None Reported Additional Past Surgical History / Comment(s): BREAST SX, pacemaker oct 2020 Past Psychological History: No Psychological Hx Reported Smoking Status: Never smoker Past Alcohol Use History: None Reported Past Drug Use History: None Reported General Exam General appearance: alert, in no apparent distress Head exam: Present: atraumatic, normocephalic Eye exam: Present: normal appearance. Absent: scleral icterus, conjunctival injection Neck exam: Present: normal inspection Respiratory exam: Present: wheezes, rhonchi. Absent: respiratory distress, rales, stridor, accessory muscle use, decreased breath sounds Cardiovascular Exam: Present: regular rate, normal rhythm, normal heart sounds. Absent: systolic murmur, diastolic murmur, rubs, gallop GI/Abdominal exam: Present: soft. Absent: distended, tenderness, guarding, rebound, rigid, mass Extremities exam: Present: normal inspection, normal capillary refill. Absent: pedal edema, calf tenderness Neurological exam: Present: alert. Absent: oriented X3, motor sensory deficit Skin exam: Present: warm, dry, intact, normal color. Absent: rash Course Vital Signs 04/01/21 23:16 Temperature 98.6 F Pulse Rate 70 Respiratory 18 Rate Blood Pressure 144/62 O2 Sat by Pulse 94 L Oximetry Disposition Clinical Impression: Community acquired bacterial pneumonia, COPD (chronic obstructive pulmonary disease) Disposition: ADMITTED IP TO THIS HOSP Condition: Poor Referrals: Gilmer Sarah MD [Primary Care Provider] - 1-2 days
[2021-04-02] MEDS: APIXABAN 5 MG TAB PO SCH ×2 (08:18→21:28)
[2021-04-02] MEDS: LOSARTAN 50 MG TAB PO SCH (08:18)
[2021-04-02] MEDS: amLODIPine 5 MG TAB PO SCH (08:18)
[2021-04-02] MEDS: AMIODARONE 200 MG TAB PO SCH (08:18)
[2021-04-02] MEDS: ASPIRIN 81 MG PO SCH (08:18)
[2021-04-02] MEDS: ATORVASTATIN 10 MG TAB PO SCH (08:19)
[2021-04-02] MEDS: DIGOXIN 125 MCG TAB PO SCH (08:19)
[2021-04-02] MEDS: IPRATROPIUM-ALBUTEROL 3 ML NEB INHALATION SCH ×4 (08:29→20:51)
[2021-04-02] MEDS ORDERED: AZITHROMYCIN 500 MG in SODIUM CHLORIDE 0.9% 250 ML IVPB ONE (09:00)
[2021-04-02] MEDS ORDERED: predniSONE 20 MG TAB PO SCH (09:00)
--- NOTE | 2021-04-02 09:21 | XR ---
EXAMINATION TYPE: XR chest 1V portable DATE OF EXAM: 04/02/2021 COMPARISON: Chest x-ray 03/29/2019, chest CT dated 04/01/2021 from outside institution HISTORY: Shortness of breath TECHNIQUE: Single frontal view of the chest is obtained. FINDINGS: The left hemidiaphragm is obscured. Heart is likely enlarged. There is a generator in left pectoral region, there are leads in the right atrium and ventricle. No evident pneumothorax. Volumes are low and the patient is rotated. Interstitium is mildly increased, retrocardiac density suspected . IMPRESSION: Expiratory rotated exam. Difficult to exclude left lower lobe pneumonia versus edema, at electasis, effusion, correlate for congestive heart failure. The remaining component of interstitial edema. There is underlying emphysema.
[2021-04-02] MEDS ORDERED: FUROSEMIDE 10 MG/ML 4 ML VIAL IV STA (10:56)
[2021-04-02] MEDS: methylPREDNISolone SOD SUCCI 125 MG/2 ML VIAL IV SCH ×3 (11:06→23:43)
[2021-04-02 11:25] LABS: HCT 44.1 % (37.2-46.3); HGB 12.3 g/dL (12.0-15.0); MCH 27.9 pg (27.0-32.0); MCHC 27.9 g/dL (32.0-37.0); Mean Platelet Volume 10.8 fL (9.5-12.2); Platelet Count 214 X 10*3/uL (140-440); RBC 4.41 X 10*6/uL (4.10-5.20); RDW 13.7 % (11.5-14.5); WBC 12.07 X 10*3/uL (4.50-10.00)
--- NOTE | 2021-04-02 13:48 | P.CNPUL ---
History of Present Illness Consult date: 04/02/21 Requesting physician: Toñito Garcia Reason for consult: dyspnea, cough, hypoxemia, abnormal CXR/CT Chief complaint: Shortness of breath History of present illness: This is a 70-year-old white female patient with past medical history of COPD, on home oxygen at bedtime, current smoker, smoked for 54 years, currently smoking half a pack a day, history of permanent pacemaker placement in October 2020 for unknown circumstances. Patient was transferred from [facility] on 04/01/2021 where she was taken by her for evaluation of increased shortness of breath, coughing, oxygen saturations, she was reportedly having a pulse ox readings in the 40s on room air at home. Chest x-ray at the [facility] showed bilateral pleural effusions. Patient was placed on supplemental oxygen, however her O2 saturations on 13 L or still in the low 80s. She was placed on BiPAP support in the ER, currently she is back on nasal cannula. She is lethargic, but arousable. She denied any chest pain, denied any fever, she does have a congested cough, she admitted that she still smoking. She denied any fever, denied any hemoptysis. She is noted to have mild pretibial edema. She was reportedly checked for COVID-19 at the [facility] and was found to be negative. Lab work at this institution reveals a white blood cell count of 12.07, hemoglobin is 12.3, d-dimer is 0.64, CRP is 4.2. ProBNP is pending. Today's chest x-ray shows low lung volumes, patient is rotated, left lower lobe atelectasis versus edema, pleural effusion, interstitial edema, and underlying emphysema. Patient was started on antibiotics in the form of azithromycin and Rocephin, IV steroids, nebulized bronchodilators, however she has not been started on any diuretics. There are scattered crackles on physical exam, she is currently on 15 L of oxygen her pulse ox is 93%, she is awake and alert, oriented 3, but gas was ordered by the attending hospitalist, however in view of her alert level of consciousness, we'll cancel the blood gas, we'll start the diuretics and transfer the patient to the [facility] care for closer monitoring. Review of Systems All systems: negative Constitutional: Denies chills, Denies fever Eyes: denies blurred vision, denies pain Ears, nose, mouth and throat: Denies headache, Denies sore throat Cardiovascular: Reports edema, Reports shortness of breath, Denies chest pain Respiratory: Reports dyspnea, Reports home oxygen, Reports wheezing, Denies cough Gastrointestinal: Denies abdominal pain, Denies diarrhea, Denies nausea, Denies vomiting Genitourinary: Denies dysuria, Denies hematuria Musculoskeletal: Denies myalgias Integumentary: Denies pruritus, Denies rash Neurological: Denies numbness, Denies weakness Psychiatric: Denies anxiety, Denies depression Endocrine: Denies fatigue, Denies weight change Past Medical History Past Medical History: Cancer, COPD, Hyperlipidemia, Hypertension, Myocardial Infarction ([place]), Thyroid Disorder Additional Past Medical History / Comment(s): LOW THYROID, CPAP HS, Oct 2020-[place], 2020 Mild stroke (per family), OCT 2020 PACER PLACED, BREAST CANCER, STAPH INFECTION OF LOWER SPINE, CURRENT SMOKER Last Myocardial Infarction Date:: OCTOBER 2020 History of Any Multi-Drug Resistant Organisms: None Reported Past Surgical History: Cholecystectomy, Pacemaker Additional Past Surgical History / Comment(s): MASTECTOMY LEFT SIDE pacemaker oct 2020, I & D OF LOWER SPINE Past Anesthesia/Blood Transfusion Reactions: No Reported Reaction Type of Cardiac Device: Unknown Device Placement Date:: OCTOBER 2020 Past Psychological History: Depression Smoking Status: Current every day smoker, Heavy tobacco smoker Past Alcohol Use History: None Reported Past Drug Use History: None Reported Medications and Allergies Home Medications Medication Instructions Recorded Confirmed Type Losartan Potassium [Cozaar] 50 mg PO DAILY 03/27/19 04/01/21 History Simvastatin [Zocor] 20 mg PO DAILY 03/27/19 04/01/21 History amLODIPine [Norvasc] 5 mg PO DAILY 03/27/19 04/01/21 History Amiodarone [Cordarone] 200 mg PO DAILY 04/01/21 04/01/21 History Apixaban [Eliquis] 5 mg PO BID 04/01/21 04/01/21 History Aspirin EC [Ecotrin Low Dose] 81 mg PO DAILY 04/01/21 04/01/21 History Digoxin [Lanoxin] 125 mcg PO DAILY 04/01/21 04/01/21 History Allergies Allergy/AdvReac Type Severity Reaction Status Date / Time No Known Allergies Allergy Verified 04/01/21 23:33 Physical Exam Vitals: Vital Signs Temp Pulse Pulse Resp BP BP Pulse Ox 04/02/21 08:00 99.0 F 70 18 112/67 93 L 04/02/21 04:03 93 L 04/02/21 01:19 98.6 F 70 21 127/61 95 04/02/21 00:49 69 21 139/59 95 04/01/21 23:16 98.6 F 70 18 144/62 94 L Intake and Output 04/01/21 04/02/21 04/02/21 22:59 06:59 14:59 Other: Voiding Method Diaper Diaper Incontinent Incontinent Weight 102.058 kg 102.058 kg GENERAL EXAM: Alert, very pleasant, 70-year-old white female, on 15 L of oxygen with pulse ox of 93%, comfortable in no apparent distress. HEAD: Normocephalic/atraumatic. EYES: Normal reaction of pupils, equal size. Conjunctiva pink, sclera white. NOSE: Clear with pink turbinates. THROAT: No erythema or exudates. NECK: No masses, no JVD, no thyroid enlargement, no adenopathy. CHEST: No chest wall deformity. Symmetrical expansion. LUNGS: Equal air entry with diminished breath sounds and scattered crackles CVS: Irregular rate and rhythm, normal S1 and S2, no gallops, no murmurs, no rubs ABDOMEN: Soft, nontender. No hepatosplenomegaly, normal bowel sounds, no guarding or rigidity. EXTREMITIES: No clubbing, trace pretibial edema is present no cyanosis, 2+ pulses and upper and lower extremities. MUSCULOSKELETAL: Muscle strength and tone normal. SPINE: No scoliosis or deformity SKIN: No rashes CENTRAL NERVOUS SYSTEM: Alert and oriented -3. No focal deficits, tone is normal in all 4 extremities. PSYCHIATRIC: Alert and oriented -3. Appropriate affect. Intact judgment and insight. Results - Laboratory Findings CBC and BMP: 04/02/21 07:38 PT/INR, D-dimer D-Dimer 0.64 mg/L FEU (<0.60) H 04/02/21 10:55 Abnormal lab findings: Abnormal Labs 04/02/21 04/02/21 04/02/21 07:38 10:55 10:55 WBC 12.07 H MCV 100.0 H MCHC 27.9 L Absolute Nucleated RBC 0.05 H NRBC/100 WBC Diff 0.4 H D-Dimer 0.64 H C-Reactive Protein 4.2 H - Diagnostic Findings Chest x-ray: report reviewed, image reviewed Assessment and Plan Plan: Assessment: #1. Acute on chronic hypoxic respiratory failure related to acute exacerbation of CHF with diastolic dysfunction #2. Acute exacerbation of COPD #3. Chronic and ongoing history of smoking, currently smoking half a pack a day, years #4. Hypertension #5. Hyperlipidemia #6. Suspect advanced COPD with chronic hypoxic respiratory failure, patient is on home oxygen at bedtime #7. Morbid obesity #8. History of breast cancer #9. History of atrial fibrillation on Eliquis, amiodarone, and digoxin Plan: We'll start IV diuretics Lasix 40 mg every 8 hours Continue IV steroids Continue nebulized bronchodilators Continue oral anticoagulation No need for blood gas, patient's mentation is awake and alert, and responding appropriately Titrate FiO2 to keep O2 sats ration is at 88% and above Be used BiPAP support for worsening dyspnea, or worsening level of consciousness, with pressures of 12/6 and FiO2 to maintain O2 saturations at 88% and above Follow-up chest x-ray in the morning Transfer of the patient to [facility] I performed a history & physical examination of the patient and discussed their management with my nurse practitioner, Louise Andersen. I reviewed the nurse practitioner's note and agree with the documented findings and plan of care. Lung sounds are positive for diminished breath sounds. The findings and the impression was discussed with the patient. I attest to the documentation by the nurse practitioner. Time with Patient: Greater than 30
[2021-04-02] MEDS ORDERED: HYDROcodone/APAP 5-325MG 1 EACH TAB PO PRN (14:18)
[2021-04-02 14:59] LABS: ALT 15 U/L (4-34); AST 21 U/L (14-36); African American GFR (CKD) >90 (>60 ml/min/1.73 sqM); Albumin 3.2 g/dL (3.5-5.0); Alkaline Phosphatase 96 U/L (38-126); Anion Gap 11 mmol/L; Blood Urea Nitrogen 31 mg/dL (7-17); Carbon Dioxide 25 mmol/L (22-30); Chloride 105 mmol/L (98-107); Glucose 238 mg/dL (74-99); Non-African American GFR(CKD) 90 (>60 ml/min/1.73 sqM); Potassium 5.3 mmol/L (3.5-5.1); Sodium 141 mmol/L (137-145); Total Bilirubin 0.4 mg/dL (0.2-1.3)
[2021-04-02] MEDS: FORMOTEROL FUMARATE 20 MCG/2 ML NEBU INHALATION SCH ×2 (15:41→20:51)
[2021-04-02] MEDS: BUDESONIDE 1 MG/2 ML NEBU INHALATION SCH ×2 (15:41→20:51)
[2021-04-02] MEDS: FUROSEMIDE 10 MG/ML 4 ML VIAL IV SCH ×2 (16:47→23:43)
[2021-04-02 16:52] LABS: Glucose,Whole Blood 187 mg/dL (75-99)
--- NOTE | 2021-04-02 17:24 | HP ---
HISTORY AND PHYSICAL DATE OF SERVICE: 04/02/2021 CHIEF COMPLAINT: Shortness of breath. HISTORY OF PRESENT ILLNESS: This 70-year-old woman with a past medical history of COPD, hypertension, hyperlipidemia, myocardial infarction, hypothyroidism, was not feeling well for the past several days. The patient also followed by Dr. Sarah in the outpatient setting. The patient was referred to [facility]. The patient has shortness of breath and some coughing. The patient also had a low apparently reportedly in the outside hospital. The patient was found to be drowsy also. The patient had bilateral lower lung pneumonia and some history of emphysema and the patient was transferred to [facility] and admitted for further evaluation and treatment. The patient is on BiPAP with some improvement with sensorium. However the white count is elevated. C- reactive protein at 4.2, also. A chest x-ray done in [facility] which was reviewed personally by me showed bilateral lower lobe pneumonia as well. The patient also had features of acute hypoxic respiratory failure. Patient started on broad spectrum IV antibiotics. Pulmonary Dr. Brewer was consulted for pulmonary management. Advanced COPD has been suspected. The patient was transferred to telemetry at this time. There is no history of fever, rigors, chills at this time. PAST MEDICAL HISTORY: History of COPD, hypertension, hyperlipidemia, history of myocardial infarction, hypothyroidism. MEDICATIONS: Home medications are: Norvasc 5 mg p.o. daily, Zocor 20 mg, Cozaar, Lanoxin, Ecotrin, Eliquis, Cordarone, doses are reviewed. ALLERGIES: None. FAMILY HISTORY: No history of heart disease or strokes in the family. SOCIAL HISTORY: Heavy smoking. No history of alcohol intake. REVIEW OF SYSTEMS: Review of systems could not be taken. The patient is mildly confused. PHYSICAL EXAMINATION: Patient is conscious, mildly confused. Pulse 70. Blood pressure 112/67, respiration 18, temperature 99 degrees, pulse ox 98% on 15 L high-flow nasal cannula. HEENT: Conjunctivae normal. Oral mucosa moist. NECK: No jugular venous distention. No carotid bruit. No lymph node enlargement. RESPIRATORY: acting. CARDIOVASCULAR system: S1, S2 muffled. No S3. No S4. RESPIRATORY: Breath sounds diminished in the bases. Bilateral scattered rhonchi and crackles. Expiratory wheezing also present. ABDOMEN: Soft, nontender. No mass palpable. LEGS: No edema. No swelling. NERVOUS SYSTEM: Higher functions as mentioned earlier. Moves all 4 limbs. No focal motor or sensory deficits. LYMPHATICS: No lymph nodes palpable in the neck, axilla or groin. SKIN: No ulcer, rash or bleeding. JOINTS: No active deforming arthropathy. LABS: WBC 12.7, hemoglobin 12.3. D-dimer is 0.64, and C-reactive protein is 4.2. ASSESSMENT: 1. Acute bilateral pneumonia. Interstitial pneumonia possibly gram-negative with acute hypoxic respiratory failure and sepsis, present on admission. 2. Change in mental status acute metabolic encephalopathy secondary to sepsis and pneumonia. 3. Increased WBC. 4. Increased MCV. 5. Increased D-dimer. 6. Increased C-reactive protein. 7. History of chronic obstructive pulmonary disease. 8. Hypertension. 9. Hyperlipidemia. 10.History of myocardial infarction. 11.History of hypothyroidism. 12.History of CPAP and obstructive sleep apnea. 13.History of pacemaker. 14.History of breast cancer. 15.History of Staph infection of the lower spine. 16.History of nicotine dependence. 17.Cholecystectomy. 18.History of mastectomy. 19.History of continued ongoing nicotine dependence. 20.Depression. 21.Obesity with body mass index of 36.3. 22.FULL CODE. RECOMMENDATIONS AND DISCUSSION: This 70-year-old woman who presented with multiple complex medical issues, we will monitor the patient closely, continue the current medications, symptomatic treatment. Optimize bronchodilator treatment, empiric antibiotics. Covid [address] of the chest. Otherwise, closely follow with pulmonology. Repeat labs. Guarded prognosis because of multiple complex medical issues. A copy of this dictation is being forwarded to Dr. Sarah who is the primary physician. MMODL / IJN: [id number] / MTDDiana
[2021-04-02 20:09] LABS: Glucose,Whole Blood 159 mg/dL (75-99)
[2021-04-02 20:23] LABS: African American GFR (CKD) 100.3 (60.0-200.0); Anion Gap 8.2 mmol/L (4.00-12.00); BUN/Creat Ratio 38.57 Ratio (12.00-20.00); Calcium 7.7 mg/dL (8.7-10.3); Carbon Dioxide 29.8 mmol/L (21.6-31.8); Non-African American GFR(CKD) 86.6 (60.0-200.0); Potassium 4.9 mmol/L (3.5-5.5)
[2021-04-02] MEDS: INSULIN ASPART (NovoLOG) 100 UNIT/ML VIAL SQ SCH (21:29)
[2021-04-03 00:01] LABS: Appearance,Urine Clear (Clear); Bilirubin,Urine Negative (Negative); Blood,Urine Negative (Negative); Color,Urine Light Yellow; Glucose,Urine (UA) Negative (Negative); Ketones,Urine Negative (Negative); Leukocyte Esterase,Urine Negative (Negative); Nitrite,Urine Negative (Negative); Protein,Urine Negative (Negative); Urobilinogen,Urine <2.0 mg/dL (<2.0)
[2021-04-03 06:18] LABS: Glucose,Whole Blood 178 mg/dL (75-99)
[2021-04-03] MEDS: PANTOPRAZOLE 40 MG TABLET PO SCH (06:25)
[2021-04-03] MEDS: methylPREDNISolone SOD SUCCI 125 MG/2 ML VIAL IV SCH ×4 (06:25→23:24)
[2021-04-03] MEDS: INSULIN ASPART (NovoLOG) 100 UNIT/ML VIAL SQ SCH ×4 (06:25→20:21)
[2021-04-03] MEDS: BUDESONIDE 1 MG/2 ML NEBU INHALATION SCH ×2 (07:36→20:36)
[2021-04-03] MEDS: IPRATROPIUM-ALBUTEROL 3 ML NEB INHALATION SCH ×4 (07:36→20:35)
[2021-04-03] MEDS: FORMOTEROL FUMARATE 20 MCG/2 ML NEBU INHALATION SCH ×2 (07:36→20:35)
[2021-04-03 07:59] LABS: Basophils % (A) 0 %; Eosinophils % (A) 0 %; HCT 45.5 % (34.0-46.0); HGB 13.4 gm/dL (11.4-16.0); Hypochromasia Marked; Lymphocytes # (A) 0.5 k/uL (1.0-4.8); Lymphocytes % (A) 3 %; MCH 27.3 pg (25.0-35.0); MCHC 29.4 g/dL (31.0-37.0); MCV 92.9 fL (80.0-100.0); Mean Platelet Volume 8.4; Monocytes # (A) 0.4 k/uL (0-1.0); Monocytes % (A) 3 %; Neutrophils # (A) 14.9 k/uL (1.3-7.7); Neutrophils % (A) 94 %; Platelet Count 206 k/uL (150-450); RDW 13.9 % (11.5-15.5); WBC 15.9 k/uL (3.8-10.6)
[2021-04-03] MEDS: FUROSEMIDE 10 MG/ML 4 ML VIAL IV SCH ×3 (08:29→23:25)
[2021-04-03] MEDS: ASPIRIN 81 MG PO SCH (08:29)
[2021-04-03] MEDS: AMIODARONE 200 MG TAB PO SCH (08:30)
[2021-04-03] MEDS: DIGOXIN 125 MCG TAB PO SCH (08:30)
[2021-04-03] MEDS: ATORVASTATIN 10 MG TAB PO SCH (08:30)
[2021-04-03] MEDS: LOSARTAN 50 MG TAB PO SCH (08:30)
[2021-04-03] MEDS: APIXABAN 5 MG TAB PO SCH ×2 (08:30→20:21)
[2021-04-03] MEDS: amLODIPine 5 MG TAB PO SCH (08:30)
[2021-04-03 08:31] LABS: C Reactive Protein 2.8 mg/dL (<1.0)
[2021-04-03 09:03] LABS: Erythrocyte Sedimentation Rate 15 mm/hr (0-20)
--- NOTE | 2021-04-03 09:18 | XR ---
EXAMINATION TYPE: XR chest 1V portable DATE OF EXAM: 04/03/2021 CLINICAL HISTORY: chf. TECHNIQUE: Portable frontal view of the chest. COMPARISON: 04/02/2021 FINDINGS: Left-sided cardiac pacemaker. Cardiomegaly obscures the left hemidiaphragm. Diffuse increa sed interstitial lung markings. Increased density at the right minor fissure. Likely small left pleur al effusion. No pneumothorax. IMPRESSION: 1. Increased interstitial markings redemonstrated. Findings may represent interstitial edema, chronic interstitial disease, or atypical pneumonitis. 2. Increased opacity at the right minor fissure may be related to atelectasis and/or small right pleu ral effusion. 3. Likely small left pleural effusion.
--- NOTE | 2021-04-03 11:06 | P.PN ---
Subjective Progress Note Date: 04/03/21 This is a 70-year-old white female patient with past medical history of COPD, on home oxygen at bedtime, current smoker, smoked for 54 years, currently smoking half a pack a day, history of permanent pacemaker placement in October 2020 for unknown circumstances. Patient was transferred from [facility] on 04/01/2021 where she was taken by her for evaluation of increased shortness of breath, coughing, oxygen saturations, she was reportedly having a pulse ox readings in the 40s on room air at home. Chest x-ray at the [facility] showed bilateral pleural effusions. Patient was placed on supplemental oxygen, however her O2 saturations on 13 L or still in the low 80s. She was placed on BiPAP support in the ER, currently she is back on nasal cannula. She is lethargic, but arousable. She denied any chest pain, denied any fever, she does have a congested cough, she admitted that she still smoking. She denied any fever, denied any hemoptysis. She is noted to have mild pretibial edema. She was reportedly checked for COVID-19 at the [facility] and was found to be negative. Lab work at this institution reveals a white blood cell count of 12.07, hemoglobin is 12.3, d-dimer is 0.64, CRP is 4.2. ProBNP is pending. Today's chest x-ray shows low lung volumes, patient is rotated, left lower lobe atelectasis versus edema, pleural effusion, interstiti al edema, and underlying emphysema. Patient was started on antibiotics in the form of azithromycin and Rocephin, IV steroids, nebulized bronchodilators, however she has not been started on any diuretics. There are scattered crackles on physical exam, she is currently on 15 L of oxygen her pulse ox is 93%, she is awake and alert, oriented 3, but gas was ordered by the attending hospitalist, however in view of her alert level of consciousness, we'll cancel the blood gas, we'll start the diuretics and transfer the patient to the selective care for closer monitoring. The patient is seen today 04/03/2021 in follow-up on selective care unit. She is much more awake and alert today. She is currently on 15 L high flow nasal cannula and maintaining O2 saturations in the high 90s. Once decreased to 10 L she is still maintaining O2 saturations in the 90s. She has trace peripheral edema. Chest x-ray continues to show interstitial edema atelectasis at the right minor fissure with small bilateral effusions. Blood cultures reveal no growth to date. White count 15.9. Hemoglobin 13.4. Platelets 206. Pro- calcitonin 0.05. LDH 848. C-reactive protein 2.8. Spencer virus not detected. She remains on DuoNeb inhalations, Pulmicort and Perforomist inhalations, IV Solu-Medrol. Anticoagulated with Eliquis. Remains on IV diuretics. Remains in a negative balance. Empiric antibiotics in the form of ceftriaxone. Objective - Vital Signs Vital signs: Vital Signs Temp 98.0 F 04/03/21 04:00 Pulse 69 04/03/21 07:57 Resp 18 04/03/21 04:00 BP 108/60 04/03/21 04:00 Pulse Ox 95 04/03/21 04:00 Intake & Output 04/02/21 04/03/21 04/03/21 18:59 06:59 18:59 Intake Total 250 100 180 Output Total 550 2150 500 Balance -300 -2049 -320 Weight 102.058 kg 103.5 kg Intake: Oral 250 100 180 Output: Urine 550 2150 500 Other: Voiding Method Diaper Diaper Incontinent Incontinent # Voids 2 - Exam GENERAL EXAM: Alert, active, 70-year-old female patient, on 10 L high flow nasal cannula, comfortable in no apparent distress. HEAD: Normocephalic. EYES: Normal reaction of pupils, equal size. NOSE: Clear with pink turbinates. THROAT: No erythema or exudates. NECK: No masses, no JVD. CHEST: No chest wall deformity. LUNGS: Equal air entry with bibasilar crackles, few scattered rhonchi CVS: S1 and S2 normal with no audible murmur, regular rhythm. ABDOMEN: No hepatosplenomegaly, normal bowel sounds, no guarding or rigidity. SPINE: No scoliosis or deformity SKIN: No rashes CENTRAL NERVOUS SYSTEM: No focal deficits, tone is normal in all 4 extremities. EXTREMITIES: There is trace peripheral edema. No clubbing, no cyanosis. P eripheral pulses are intact. - Labs CBC & Chem 7: 04/03/21 06:59 04/02/21 10:55 Labs: Abnormal Lab Results - Last 24 Hours (Table) 04/02/21 04/02/21 04/02/21 Range/Units 07:38 07:38 10:55 WBC 12.07 H (4.50-10.00) X 10*3/uL MCV 100.0 H (80.0-97.0) fL MCHC 27.9 L (32.0-37.0) g/dL Absolute Nucleated RBC 0.05 H (0.00-0.00) X 10*3/uL Neutrophils # (1.3-7.7) k/uL Lymphocytes # (1.0-4.8) k/uL NRBC/100 WBC Diff 0.4 H (0.0-0.0) /100 WBCS D-Dimer 0.64 H (<0.60) mg/L FEU Potassium (3.5-5.1) mmol/L BUN (7-17) mg/dL BUN/Creatinine Ratio 38.57 H (12.00-20.00) Ratio Glucose 147 H (70-110) mg/dL POC Glucose (mg/dL) (75-99) mg/dL Calcium 7.7 L (8.7-10.3) mg/dL Lactate Dehydrogenase (313-618) U/L C-Reactive Protein (<1.0) mg/dL Total Protein (6.3-8.2) g/dL Albumin (3.5-5.0) g/dL 04/02/21 04/02/21 04/02/21 Range/Units 10:55 10:55 16:50 WBC (4.50-10.00) X 10*3/uL MCV (80.0-97.0) fL MCHC (32.0-37.0) g/dL Absolute Nucleated RBC (0.00-0.00) X 10*3/uL Neutrophils # (1.3-7.7) k/uL Lymphocytes # (1.0-4.8) k/uL NRBC/100 WBC Diff (0.0-0.0) /100 WBCS D-Dimer (<0.60) mg/L FEU Potassium 5.3 H (3.5-5.1) mmol/L BUN 31 H (7-17) mg/dL BUN/Creatinine Ratio (12.00-20.00) Ratio Glucose 238 H (70-110) mg/dL POC Glucose (mg/dL) 187 H (75-99) mg/dL Calcium 8.0 L (8.7-10.3) mg/dL Lactate Dehydrogenase (313-618) U/L C-Reactive Protein 4.2 H (<1.0) mg/dL Total Protein 6.0 L (6.3-8.2) g/dL Albumin 3.2 L (3.5-5.0) g/dL 04/02/21 04/03/21 04/03/21 Range/Units 20:08 06:16 06:59 WBC 15.9 H (4.50-10.00) X 10*3/uL MCV (80.0-97.0) fL MCHC 29.4 L (32.0-37.0) g/dL Absolute Nucleated RBC (0.00-0.00) X 10*3/uL Neutrophils # 14.9 H (1.3-7.7) k/uL Lymphocytes # 0.5 L (1.0-4.8) k/uL NRBC/100 WBC Diff (0.0-0.0) /100 WBCS D-Dimer (<0.60) mg/L FEU Potassium (3.5-5.1) mmol/L BUN (7-17) mg/dL BUN/Creatinine Ratio (12.00-20.00) Ratio Glucose (70-110) mg/dL POC Glucose (mg/dL) 159 H 178 H (75-99) mg/dL Calcium (8.7-10.3) mg/dL Lactate Dehydrogenase (313-618) U/L C-Reactive Protein (<1.0) mg/dL Total Protein (6.3-8.2) g/dL Albumin (3.5-5.0) g/dL 04/03/21 Range/Units 06:59 WBC (4.50-10.00) X 10*3/uL MCV (80.0-97.0) fL MCHC (32.0-37.0) g/dL Absolute Nucleated RBC (0.00-0.00) X 10*3/uL Neutrophils # (1.3-7.7) k/uL Lymphocytes # (1.0-4.8) k/uL NRBC/100 WBC Diff (0.0-0.0) /100 WBCS D-Dimer (<0.60) mg/L FEU Potassium (3.5-5.1) mmol/L BUN (7-17) mg/dL BUN/Creatinine Ratio (12.00-20.00) Ratio Glucose (70-110) mg/dL POC Glucose (mg/dL) (75-99) mg/dL Calcium (8.7-10.3) mg/dL Lactate Dehydrogenase 848 H (313-618) U/L C-Reactive Protein 2.8 H (<1.0) mg/dL Total Protein (6.3-8.2) g/dL Albumin (3.5-5.0) g/dL Microbiology - Last 24 Hours (Table) 04/02/21 00:23 Blood Culture - Preliminary Blood No Growth after 24 hours 04/02/21 00:08 Blood Culture - Preliminary Blood No Growth after 24 hours Assessment and Plan Assessment: 1 Acute on chronic hypoxic respiratory failure related to acute exacerbation of CHF with diastolic dysfunction 2 Acute exacerbation of COPD 3 Chronic and ongoing history of smoking, currently smoking half a pack a day, / years 4 Hypertension 5 Hyperlipidemia 6 Suspect advanced COPD with chronic hypoxic respiratory failure, patient is on home oxygen at bedtime 7 Morbid obesity 8 History of breast cancer 9 History of atrial fibrillation on Eliquis, amiodarone, and digoxin Plan: The patient was seen and evaluated by Dr. Brewer More awake and alert today Chest x-ray and labs reviewed Continue IV diuretics Titrate the FiO2 as tolerated Continue bronchodilators, steroids We will continue to follow I, the cosigning physician, performed a history & physical examination of the patient. Lungs sounds are present the posterior bases, few scattered rhonchi. Maintaining good O2 saturations in the 90s on 10 L high flow nasal cannula. I discussed the assessment and plan of care with my nurse practitioner, Grace Martin. I attest to the above note as dictated by her.
[2021-04-03 12:23] LABS: Glucose,Whole Blood 286 mg/dL (75-99)
[2021-04-03] MEDS: NICOTINE 21MG/24HR PATCH TRANSDERM SCH (12:29)
[2021-04-03 16:55] LABS: Glucose,Whole Blood 187 mg/dL (75-99)
[2021-04-03 20:32] LABS: Glucose,Whole Blood 203 mg/dL (75-99)
--- NOTE | 2021-04-03 21:40 | PN ---
PROGRESS NOTE DATE OF SERVICE: 04/03/2021. HISTORY: This 70-year-old woman who was admitted with shortness of breath, was thought to have pneumonia with bilateral pneumonia. Patient also was found to have some fluid overload. The patient was [facility] under telemetry. Patient was given dialysis. The patient is feeling slightly better. Patient is still confused. Chest x- ray does show some evidence of pneumonia on the right lower lobe. PAST MEDICAL HISTORY: Reviewed. REVIEW OF SYSTEMS: CARDIOVASCULAR: No angina. GI: As mentioned. : As mentioned. CURRENT MEDICATIONS: Reviewed include [place], Ventolin, DuoNeb, Cordarone, Norvasc, Eliquis, aspirin, Lipitor, Rocephin. Doses reviewed. Other medications reviewed. PHYSICAL EXAMINATION: Patient is alert, oriented x2. Pulse 77, blood pressure 119/52, respirations 18, temperature normal, pulse ox 92% on 10 L high-flow oxygen. HEENT: Conjunctivae normal. NECK: Supple. No JVD. CARDIOVASCULAR: S1 and S2 muffled. LUNGS: Breath sounds diminished at the bases. Few scattered rhonchi. ABDOMEN: Soft nontender. LEGS: No edema. NERVOUS SYSTEM: Diffusely weak. LAB STUDIES: WBC 15.9 and hemoglobin 13.4. C-reactive protein is 2.8 and D-dimer is 0.64. ASSESSMENT: 1. Acute bilateral pneumonia, interstitial pneumonia possibly gram-negative with acute hypoxic respiratory failure and sepsis present on admission. 2. Possible congestive heart failure acute exacerbation ejection fraction unknown. 3. Change in mental status acute metabolic acidosis secondary to sepsis and pneumonia. 4. Elevated D-dimer. 5. History of THC. 6. Increased MCV. 7. Increased CRP. 8. History of chronic obstructive pulmonary disease. 9. Hypertension. 10.Hyperlipidemia. 11.History of myocardial infarction. 12.History of hypothyroidism. 13.History of CPAP and obstructive sleep apnea. 14.History of pacemaker. 15.History of breast cancer. 16.History of staph infection of the lower spine. 17.History of nicotine dependence. 18.Cholecystectomy. 19.History of mastectomy. 20.History of ongoing nicotine dependence. 21.Depression. 22.Obesity with body mass index of 36.6. 23.FULL CODE. RECOMMENDATIONS AND DISCUSSION: Recommend to continue current management and symptomatic treatment. Continue with current IV antibiotics. The patient is on Eliquis. I would also recommend Lasix and continue to follow with Cardiology and Pulmonology. A 2D echo with Doppler. Prognosis guarded because of multiple complex medical issues and further recommendations to follow. IV steroids have also been initiated. I would also recommend a CT angio of the chest also. Prognosis guarded. MMODL / JULION: [id number] /
[2021-04-04 01:23] LABS: African American GFR (CKD) >90 (>60 ml/min/1.73 sqM); Blood Urea Nitrogen 48 mg/dL (7-17); Calcium 8.1 mg/dL (8.4-10.2); Chloride 91 mmol/L (98-107); Glucose 130 mg/dL (74-99); Non-African American GFR(CKD) 83 (>60 ml/min/1.73 sqM); Potassium 3.8 mmol/L (3.5-5.1); Sodium 141 mmol/L (137-145)
[2021-04-04 01:30] LABS: Anion Gap 5 mmol/L
[2021-04-04 01:32] LABS: Carbon Dioxide 45 mmol/L (22-30)
[2021-04-04 06:39] LABS: Glucose,Whole Blood 213 mg/dL (75-99)
[2021-04-04] MEDS: methylPREDNISolone SOD SUCCI 125 MG/2 ML VIAL IV SCH ×2 (07:02→16:17)
[2021-04-04] MEDS: INSULIN ASPART (NovoLOG) 100 UNIT/ML VIAL SQ SCH ×4 (07:02→20:16)
[2021-04-04] MEDS: PANTOPRAZOLE 40 MG TABLET PO SCH (07:03)
[2021-04-04] MEDS: FORMOTEROL FUMARATE 20 MCG/2 ML NEBU INHALATION SCH ×2 (07:21→18:55)
[2021-04-04] MEDS: BUDESONIDE 1 MG/2 ML NEBU INHALATION SCH ×2 (07:21→18:55)
[2021-04-04] MEDS: IPRATROPIUM-ALBUTEROL 3 ML NEB INHALATION SCH ×4 (07:21→18:55)
[2021-04-04 09:21] LABS: Basophils % (A) 0 %; Eosinophils # (A) 0.1 k/uL (0-0.7); Eosinophils % (A) 0 %; HCT 44.1 % (34.0-46.0); HGB 13.6 gm/dL (11.4-16.0); Hypochromasia Marked; Lymphocytes # (A) 0.3 k/uL (1.0-4.8); Lymphocytes % (A) 2 %; MCH 28.2 pg (25.0-35.0); MCHC 30.8 g/dL (31.0-37.0); MCV 91.6 fL (80.0-100.0); Mean Platelet Volume 8.6; Monocytes # (A) 0.4 k/uL (0-1.0); Monocytes % (A) 3 %; Neutrophils # (A) 13.2 k/uL (1.3-7.7); Neutrophils % (A) 95 %; Platelet Count 220 k/uL (150-450); RBC 4.82 m/uL (3.80-5.40); RDW 13.9 % (11.5-15.5)
[2021-04-04] MEDS: FUROSEMIDE 10 MG/ML 4 ML VIAL IV SCH ×3 (09:24→22:59)
[2021-04-04] MEDS: amLODIPine 5 MG TAB PO SCH (09:25)
[2021-04-04] MEDS: AMIODARONE 200 MG TAB PO SCH (09:25)
[2021-04-04] MEDS: DIGOXIN 125 MCG TAB PO SCH (09:26)
[2021-04-04] MEDS: NICOTINE 21MG/24HR PATCH TRANSDERM SCH (09:26)
[2021-04-04] MEDS: ASPIRIN 81 MG PO SCH (09:26)
[2021-04-04] MEDS: LOSARTAN 50 MG TAB PO SCH (09:26)
[2021-04-04] MEDS: ATORVASTATIN 10 MG TAB PO SCH (09:26)
[2021-04-04] MEDS: APIXABAN 5 MG TAB PO SCH ×2 (09:26→20:16)
[2021-04-04 09:59] LABS: Carbon Dioxide 38 mmol/L (22-30)
[2021-04-04 10:17] LABS: African American GFR (CKD) >90 (>60 ml/min/1.73 sqM); Anion Gap 10 mmol/L; Blood Urea Nitrogen 51 mg/dL (7-17); Calcium 8.1 mg/dL (8.4-10.2); Chloride 92 mmol/L (98-107); Glucose 285 mg/dL (74-99); Non-African American GFR(CKD) 88 (>60 ml/min/1.73 sqM); Potassium 4.6 mmol/L (3.5-5.1); Sodium 140 mmol/L (137-145)
--- NOTE | 2021-04-04 10:47 | P.CRDCN ---
History of Present Illness Consult date: 04/04/21 History of present illness: HISTORY OF PRESENT ILLNESS: This is a 70-year-old female with a past medical history significant for paroxysmal atrial fibrillation, pacemaker insertion, COPD, TIA, and nicotine dependence. Patient follows with a alarm investigator in [place], [place]. We have been asked to see the patient in consultation for congestive heart failure. Patient examined at the bedside. Per the ER physician note, the patient was brought to the hospital secondary to shortness of breath and hypoxia. The patient states she came to the hospital because she was having jerking movements of her right upper extremity and thought she was having a heart attack. Patient currently denies chest pain or pressure. She denies shortness of breath. She denies dizziness or lightheadedness. Telemetry reveals sinus mechanism. Patient reports smoking 1PPD. EKG reveals sinus mechanism. Chest xray difficult to exclude left lower lobe pneumonia versus edema, atelectasis, effusion, correlate for congestive heart failure. Laboratory data: WBC 14.0. Hemoglobin 13.6. Please count 220. Sodium 140. Potassium 4.6. BUN 51. Creatinine 0.68. Magnesium 2.0. Troponin 0.015. BNP 673. Current home cardiac medications include Norvasc 5 mg daily, simvastatin 20 mg daily, losartan 50 mg daily, digoxin 125mcg daily, aspirin 81 mg daily, amiodarone 290 g daily, and Eliquis 5 mg twice a day Most recent echocardiogram obtained in 2019 revealed ejection fraction 60-65%, mild mitral regurgitation, mild tricuspid regurgitation, mild pulmonary hypertension. REVIEW OF SYSTEMS: At the time of my exam: CONSTITUTIONAL: Denies fever or chills. HEENT: Denies blurred vision, vision changes, or eye pain. Denies hemoptysis CARDIOVASCULAR: Denies chest pain. Denies orthopnea. Denies PND. Denies palpitations RESPIRATORY: Denies shortness of breath. GASTROINTESTINAL: Denies abdominal pain. Denies nausea or vomiting. HEMATOLOGIC: Denies bleeding disorders. GENITOURINARY: Denies any blood in urine. SKIN: Denies pruitis. Denies rash. PHYSICAL EXAM: VITAL SIGNS: Reviewed. GENERAL: Well-developed in no acute distress. HEENT: Head is normocephalic. Pupils are equal, round. Sclerae anicteric. Mucous membranes of the mouth are moist. Neck supple. No JVD or thyromegaly LUNGS: Respirations even and unlabored. Lungs diminished with minimal bibasilar rales HEART: Regular rate and rhythm. S1 and S2 heard. ABDOMEN: Soft. Nondistended. Nontender. EXTREMITIES: Normal range of motion. No clubbing or cyanosis. Peripheral pulses intact. trace bilateral lower extremity edema NEUROLOGIC: Awake and alert. Oriented x 3. ASSESSMENT: Acute hypoxic respiratory failure Acute exacerbation of COPD Acute diastolic congestive heart failure Paroxysmal atrial fibrillation, on anticoagulation with Eliquis Hypertension Hyperlipidemia Coronary artery disease without PCI, per patient Nicotine dependence PLAN: Obtain 2D echo to assess cardiac structure and function Continue home cardiac medications Continue anticoagulation with Eliquis Continue IV lasix Monitor kidney function Accurate I&O Daily weights Further recommendations pending patient course Nurse practitioner note has been reviewed by physician. Signing provider agrees with the documented findings, assessment, and plan of care. Past Medical History Past Medical History: Cancer, COPD, Hyperlipidemia, Hypertension, Myocardial Inf arction ([place]), Thyroid Disorder Additional Past Medical History / Comment(s): LOW THYROID, CPAP HS, Oct 2020-[place], 2020 Mild stroke (per family), OCT 2020 PACER PLACED, BREAST CANCER, STAPH INFECTION OF LOWER SPINE, CURRENT SMOKER Last Myocardial Infarction Date:: OCTOBER 2020 History of Any Multi-Drug Resistant Organisms: None Reported Past Surgical History: Cholecystectomy, Pacemaker Additional Past Surgical History / Comment(s): MASTECTOMY LEFT SIDE pacemaker oct 2020, I & D OF LOWER SPINE Past Anesthesia/Blood Transfusion Reactions: No Reported Reaction Type of Cardiac Device: Unknown Device Placement Date:: OCTOBER 2020 Past Psychological History: Depression Smoking Status: Current every day smoker, Heavy tobacco smoker Past Alcohol Use History: None Reported Past Drug Use History: None Reported Medications and Allergies Home Medications Medication Instructions Recorded Confirmed Type Losartan Potassium [Cozaar] 50 mg PO DAILY 03/27/19 04/01/21 History Simvastatin [Zocor] 20 mg PO DAILY 03/27/19 04/01/21 History amLODIPine [Norvasc] 5 mg PO DAILY 03/27/19 04/01/21 History Amiodarone [Cordarone] 200 mg PO DAILY 04/01/21 04/01/21 History Apixaban [Eliquis] 5 mg PO BID 04/01/21 04/01/21 History Aspirin EC [Ecotrin Low Dose] 81 mg PO DAILY 04/01/21 04/01/21 History Digoxin [Lanoxin] 125 mcg PO DAILY 04/01/21 04/01/21 History Allergies Allergy/AdvReac Type Severity Reaction Status Date / Time No Known Allergies Allergy Verified 04/01/21 23:33 Physical Exam Vitals: Vital Signs Temp Pulse Pulse Resp BP Pulse Ox 04/04/21 07:43 72 18 04/04/21 07:33 70 18 04/04/21 07:23 68 18 93 L 04/04/21 04:00 98.6 F 72 19 136/62 93 L 04/04/21 02:00 73 17 04/03/21 23:46 98.1 F 73 17 107/59 94 L 04/03/21 20:48 88 04/03/21 20:47 88 04/03/21 20:39 88 04/03/21 20:00 99.0 F 70 19 134/64 93 L 04/03/21 16:00 65 18 117/54 93 L 04/03/21 15:44 73 04/03/21 15:35 71 04/03/21 14:00 77 18 04/03/21 12:00 77 18 119/52 93 L 04/03/21 11:09 68 04/03/21 11:01 64 Intake and Output 04/03/21 04/04/21 04/04/21 22:59 06:59 14:59 Intake Total 250 Output Total 800 Balance -550 Intake: Oral 250 Output: Urine 800 Other: Voiding Method Diaper Diaper Incontinent Incontinent Weight 103 kg Results 04/04/21 08:57 04/04/21 08:57 Cardiac Enzymes 04/03/21 Range/Units 18:51 Troponin I 0.015 (0.000-0.034) ng/mL Comprehensive Metabolic Panel 04/04/21 Range/Units 00:29 Sodium 141 (137-145) mmol/L Potassium 3.8 (3.5-5.1) mmol/L Chloride 91 L (98-107) mmol/L Carbon Dioxide 45 H* (22-30) mmol/L BUN 48 H (7-17) mg/dL Creatinine 0.73 (0.52-1.04) mg/dL Glucose 130 H (74-99) mg/dL Calcium 8.1 L (8.4-10.2) mg/dL Current Medications Generic Name Dose Route Start Last Admin Trade Name Freq PRN Reason Stop Dose Admin Hydrocodone Bitart/Acetaminophen 1 each 04/02/21 14:18 Hydrocodone/Apap 5-325mg 1 Each Tab PO Q6HR PRN Pain Albuterol Sulfate 2.5 mg 04/02/21 00:08 Albuterol Nebulized 2.5 Mg/3 Ml INHALATION RT-Q4H PRN Shortness Of Breath Or Wheezing Albuterol/Ipratropium 3 ml 04/02/21 08:00 04/04/21 07:21 Ipratropium-Albuterol 3 Ml Neb INHALATION 3 ml RT-QID YULIET Administration Amiodarone HCl 200 mg 04/02/21 09:00 04/03/21 08:30 Amiodarone 200 Mg Tab PO 200 mg DAILY YULIET Administration Amlodipine Besylate 5 mg 04/02/21 09:00 04/03/21 08:30 Amlodipine 5 Mg Tab PO 5 mg DAILY YULIET Administration Apixaban 5 mg 04/02/21 09:00 04/03/21 20:21 Apixaban 5 Mg Tab PO 5 mg BID YULIET Administration Protocol Aspirin 81 mg 04/02/21 09:00 04/03/21 08:29 Aspirin 81 Mg PO 81 mg DAILY YULIET Administration Atorvastatin Calcium 10 mg 04/02/21 09:00 04/03/21 08:30 Atorvastatin 10 Mg Tab PO 10 mg DAILY YULIET Administration Budesonide 1 mg 04/02/21 14:18 04/04/21 07:21 Budesonide 1 Mg/2 Ml Nebu INHALATION 1 mg RT-BID YULIET Administration Digoxin 125 mcg 04/02/21 09:00 04/03/21 08:30 Digoxin 125 Mcg Tab PO 125 mcg DAILY YULIET Administration Formoterol Fumarate 20 mcg 04/02/21 14:18 04/04/21 07:21 Formoterol Fumarate 20 Mcg/2 Ml Nebu INHALATION 20 mcg RT-BID YULIET Administration Furosemide 40 mg 04/02/21 16:00 04/03/21 23:25 Furosemide 10 Mg/Ml 4 Ml Vial IV 40 mg Q8HR YULIET Administration Ceftriaxone Sodium 2 gm/ 50 mls @ 100 mls/hr 04/03/21 09:00 04/03/21 08:30 Sodium Chloride IVPB 04/05/21 09:01 100 mls/hr Q24HR YULIET Administration Insulin Aspart 0 unit 04/02/21 21:00 04/04/21 07:02 Insulin Aspart (Novolog) 100 Unit/Ml Vial SQ 4 unit ACHS YULIET Administration Protocol Losartan Potassium 50 mg 04/02/21 09:00 04/03/21 08:30 Losartan 50 Mg Tab PO 50 mg DAILY YULIET Administration Methylprednisolone Sodium Succinate 60 mg 04/02/21 12:00 04/04/21 07:02 Methylprednisolone Sod Succi 125 Mg/2 Ml Vial IV 60 mg Q6HR YULIET Administration Miscellaneous Information 1 each 04/02/21 00:08 Pneumonia Protocol Utilized 1 Each Misc PO ONCE PRN Per Protocol Nicotine 1 patch 04/03/21 12:15 04/03/21 12:29 Nicotine 21mg/24hr Patch TRANSDERM 1 patch DAILY YULIET Administration Pantoprazole Sodium 40 mg 04/03/21 07:30 04/04/21 07:03 Pantoprazole 40 Mg Tablet PO 40 mg [id number] YULIET Administration Intake and Output 04/03/21 04/04/21 04/04/21 22:59 06:59 14:59 Intake Total 250 Output Total 800 Balance -550 Intake: Oral 250 Output: Urine 800 Other: Voiding Method Diaper Diaper Incontinent Incontinent Weight 103 kg 04/03/21 06:59 04/04/21 00:29
--- NOTE | 2021-04-04 11:00 | ECHOF ---
Referral Reason:chf MEASUREMENTS -------- HEIGHT: 167.6 cm WEIGHT: 103.0 kg BP: 136/62 IVSd: 1.5 cm (0.6 - 1.1) LVIDd: 4.4 cm (3.9 - 5.3) LVPWd: 1.5 cm (0.6 - 1.1) EDV(Teich): 86 ml IVSs: 1.8 cm LVIDs: 3.3 cm LVPWs: 1.7 cm %IVS Thck: 16 % ESV(Teich): 44 ml EF(Teich): 49 % %FS: 24 % SV(Teich): 42 ml LA Diam: 3.9 cm (2.7 - 3.8) RVIDd: 3.5 cm (< 3.3) IVC: 20.54 mm LALs A4C: 5.8 cm LAAs A4C: 20.6 cm LAESV A-L A4C: 62 ml LAESV MOD A4C: 56 ml LALs A2C: 5.9 cm LAAs A2C: 18.6 cm LAESV A-L A2C: 50 ml LAESV MOD A2C: 46 ml LAESV(A-L): 56 ml LAESV Index (A-L): 26.45 ml/m Ao Diam: 3.1 cm (2.0 - 3.7) AV Cusp: 1.7 cm (1.5 - 2.6) EPSS: 0.7 cm MV DecT: 190 ms MV PHT: 63 ms MVA By PHT: 3.5 cm LVOT Vmax: 1.31 m/s LVOT maxP.89 mmHg AV Vmax: 2.67 m/s AV maxP.59 mmHg AV Vmax: 2.73 m/s AV Vmean: 1.78 m/s AV maxP.10 mmHg AV meanP.68 mmHg AV Env.Ti: 276 ms AV VTI: 49.0 cm TR Vmax: 3.07 m/s TR maxP.70 mmHg RAP: 5.00 mmHg RVSP: 42.70 mmHg MV EF SLOPE: 136.60 mm/s (70 - 150) MV EXCURSION: 19.09 mm (> 18.000) FINDINGS -------- Atrial fibrillation. This was a technically adequate study. The left ventricular size is normal. There is moderate concentric left ventricular hypertrophy. O verall left ventricular systolic function is mild-moderately impaired with, an EF between 40 - 45 %. The right ventricle is mildly enlarged. Normal LA size by volume 22+/-6 ml/m2. The right atrium is normal in size. Interatrial and interventricular septum intact. There is mild aortic valve sclerosis. There is mild aortic stenosis present. Peak/mean gradient a cross the Aortic Valve is 30.10mmHg / 15.68mmHg. Mild mitral annular calcification present. Mild tricuspid regurgitation present. There is mild pulmonary hypertension. The right ventricular systolic pressure, as measured by Doppler, is 42.70mmHg. The pulmonic valve is normal. The aortic root size is normal. Normal inferior vena cava with normal inspiratory collapse consistent with estimated right atrial pre ssure of 5 mmHg. There is no pericardial effusion. CONCLUSIONS -------- 1. The left ventricular size is normal. 2. There is moderate concentric left ventricular hypertrophy. 3. Overall left ventricular systolic function is mild-moderately impaired with, an EF between 40 - 45 %. 4. The right ventricle is mildly enlarged. 5. Normal LA size by volume 22+/-6 ml/m2. 6. There is mild aortic valve sclerosis. 7. There is mild aortic stenosis present. 8. Peak/mean gradient across the Aortic Valve is 30.10mmHg / 15.68mmHg. 9. Mild mitral annular calcification present. 10. Mild tricuspid regurgitation present. 11. There is mild pulmonary hypertension. 12. The right ventricular systolic pressure, as measured by Doppler, is 42.70mmHg. 13. There is no pericardial effusion. VOLLEYBALL COMMENTATOR: Libia Adair RDCS
[2021-04-04 11:53] LABS: Glucose,Whole Blood 278 mg/dL (75-99)
--- NOTE | 2021-04-04 12:10 | CT ---
EXAMINATION TYPE: CT angio chest DATE OF EXAM: 04/04/2021 11:49 AM COMPARISON: Chest x-ray 04/03/2021 HISTORY: COPD, PE CT DLP: 610.4 mGycm Automated exposure control for dose reduction was used. CONTRAST: CTA scan of the thorax is performed with IV Contrast, patient injected with 69 mL of Isovue 370, pulm onary embolism protocol. . FINDINGS: LUNGS: Paraseptal emphysematous changes are seen there is left upper lobe area of consolidation. Smal l bilateral pleural effusions are noted. Subsegmental consolidation of both lung bases. A coarsened i nterstitium. MEDIASTINUM: There is satisfactory enhancement of the pulmonary artery and its branches, there is no CT evidence for pulmonary embolism. There are no greater than 1 cm hilar or mediastinal lymph nodes. The heart is enlarged and there is a cardiac device. Atherosclerotic change of the aorta. Suspect a significant stenosis at the origin of the left subclavian artery. Coronary artery calcification. Surg ical clips in the gallbladder fossa. OTHER: Hypertrophic and degenerative change of the spine. IMPRESSION: 1. NO DIAGNOSTIC EVIDENCE OF PULMONARY EMBOLISM. BILATERAL AREAS OF INFILTRATE AND SMALL EFFUSION COR RELATE FOR PNEUMONIA VERSUS CHF. 2. COPD
[2021-04-04 13:04] VITALS: BMI 36.6
--- NOTE | 2021-04-04 14:17 | P.PN ---
Subjective Progress Note Date: 04/04/21 This is a 70-year-old white female patient with past medical history of COPD, on home oxygen at bedtime, current smoker, smoked for 54 years, currently smoking half a pack a day, history of permanent pacemaker placement in October 2020 for unknown circumstances. Patient was transferred from [facility] on 04/01/2021 where she was taken by her for evaluation of increased shortness of breath, coughing, oxygen saturations, she was reportedly having a pulse ox readings in the 40s on room air at home. Chest x-ray at the [facility] showed bilateral pleural effusions. Patient was placed on supplemental oxygen, however her O2 saturations on 13 L or still in the low 80s. She was placed on BiPAP support in the ER, currently she is back on nasal cannula. She is lethargic, but arousable. She denied any chest pain, denied any fever, she does have a congested cough, she admitted that she still smoking. She denied any fever, denied any hemoptysis. She is noted to have mild pretibial edema. She was reportedly checked for COVID-19 at the [facility] and was found to be negative. Lab work at this institution reveals a white blood cell count of 12.07, hemoglobin is 12.3, d-dimer is 0.64, CRP is 4.2. ProBNP is pending. Today's chest x-ray shows low lung volumes, patient is rotated, left lower lobe atelectasis versus edema, pleural effusion, interstiti al edema, and underlying emphysema. Patient was started on antibiotics in the form of azithromycin and Rocephin, IV steroids, nebulized bronchodilators, however she has not been started on any diuretics. There are scattered crackles on physical exam, she is currently on 15 L of oxygen her pulse ox is 93%, she is awake and alert, oriented 3, but gas was ordered by the attending hospitalist, however in view of her alert level of consciousness, we'll cancel the blood gas, we'll start the diuretics and transfer the patient to the selective care for closer monitoring. The patient is seen today 04/03/2021 in follow-up on selective care unit. She is much more awake and alert today. She is currently on 15 L high flow nasal cannula and maintaining O2 saturations in the high 90s. Once decreased to 10 L she is still maintaining O2 saturations in the 90s. She has trace peripheral edema. Chest x-ray continues to show interstitial edema atelectasis at the right minor fissure with small bilateral effusions. Blood cultures reveal no growth to date. White count 15.9. Hemoglobin 13.4. Platelets 206. Pro- calcitonin 0.05. LDH 848. C-reactive protein 2.8. Spencer virus not detected. She remains on DuoNeb inhalations, Pulmicort and Perforomist inhalations, IV Solu-Medrol. Anticoagulated with Eliquis. Remains on IV diuretics. Remains in a negative balance. Empiric antibiotics in the form of ceftriaxone. The patient is seen today 04/04/2021 in follow-up on the selective care unit. She is currently sitting up in a chair at the bedside. More awake and alert today. She is still requiring 8 L high flow nasal cannula to maintain O2 saturations in the 90s. Echocardiogram reveals moderately impaired left ventricular systolic function with ejection fraction 40-45%. Mild pulmonary hypertension. She remains in atrial fibrillation. CT angiogram ruled out pulmonary embolism. There is bilateral areas of infiltrate and small effusions. Evidence of COPD. Blood cultures reveal no growth. White count 14.0. Hemoglobin 13.6. Sodium 140. Potassium 4.6. Creatinine 0.68. Bicarb 38. Glucose 285. She remains on bronchodilators, IV Solu-Medrol, IV diuretics. Antibiotics in the form of ceftriaxone. NicoDerm patch in place. Objective - Vital Signs Vital signs: Vital Signs Temp 98.3 F 04/04/21 12:00 Pulse 70 04/04/21 12:00 Resp 18 04/04/21 12:00 BP 121/68 04/04/21 12:00 Pulse Ox 95 04/04/21 12:00 Intake & Output 04/03/21 04/04/21 04/04/21 18:59 06:59 18:59 Intake Total 430 250 720 Output Total 1150 800 825 Balance -720 -550 -105 Weight 103 kg 103 kg Intake: Oral 430 250 720 Output: Urine 1150 800 825 Other: Voiding Method Diaper Diaper Diaper Incontinent Incontinent Incontinent - Exam GENERAL EXAM: Alert, active, 70-year-old female patient, on 8 L high flow nasal cannula, comfortable in no apparent distress. HEAD: Normocephalic. EYES: Normal reaction of pupils, equal size. NOSE: Clear with pink turbinates. THROAT: No erythema or exudates. NECK: No masses, no JVD. CHEST: No chest wall deformity. LUNGS: Equal air entry with bibasilar crackles, few scattered rhonchi CVS: S1 and S2 normal with no audible murmur, regular rhythm. ABDOMEN: No hepatosplenomegaly, normal bowel sounds, no guarding or rigidity. SPINE: No scoliosis or deformity SKIN: No rashes CENTRAL NERVOUS SYSTEM: No focal deficits, tone is normal in all 4 extremities. EXTREMITIES: There is trace peripheral edema. No clubbing, no cyanosis. Peripheral pulses are intact. - Labs CBC & Chem 7: 04/04/21 08:57 04/04/21 08:57 Labs: Abnormal Lab Results - Last 24 Hours (Table) 04/03/21 04/03/21 04/04/21 Range/Units 16:43 20:12 00:29 WBC (3.8-10.6) k/uL MCHC (31.0-37.0) g/dL Neutrophils # (1.3-7.7) k/uL Lymphocytes # (1.0-4.8) k/uL Chloride 91 L (98-107) mmol/L Carbon Dioxide 45 H* (22-30) mmol/L BUN 48 H (7-17) mg/dL Glucose 130 H (74-99) mg/dL POC Glucose (mg/dL) 187 H 203 H (75-99) mg/dL Calcium 8.1 L (8.4-10.2) mg/dL 04/04/21 04/04/21 04/04/21 Range/Units 06:29 08:57 08:57 WBC 14.0 H (3.8-10.6) k/uL MCHC 30.8 L (31.0-37.0) g/dL Neutrophils # 13.2 H (1.3-7.7) k/uL Lymphocytes # 0.3 L (1.0-4.8) k/uL Chloride 92 L (98-107) mmol/L Carbon Dioxide 38 H (22-30) mmol/L BUN 51 H (7-17) mg/dL Glucose 285 H (74-99) mg/dL POC Glucose (mg/dL) 213 H (75-99) mg/dL Calcium 8.1 L (8.4-10.2) mg/dL 04/04/21 Range/Units 11:41 WBC (3.8-10.6) k/uL MCHC (31.0-37.0) g/dL Neutrophils # (1.3-7.7) k/uL Lymphocytes # (1.0-4.8) k/uL Chloride (98-107) mmol/L Carbon Dioxide (22-30) mmol/L BUN (7-17) mg/dL Glucose (74-99) mg/dL POC Glucose (mg/dL) 278 H (75-99) mg/dL Calcium (8.4-10.2) mg/dL Microbiology - Last 24 Hours (Table) 04/02/21 00:23 Blood Culture - Preliminary Blood No Growth after 48 hours 04/02/21 00:08 Blood Culture - Preliminary Blood No Growth after 48 hours Assessment and Plan Assessment: 1 Acute on chronic hypoxic respiratory failure related to acute exacerbation of CHF with systolic dysfunction. Pulmonary embolism ruled out 2 Acute exacerbation of COPD 3 Chronic and ongoing history of smoking, currently smoking half a pack a day, / years 4 Hypertension 5 Hyperlipidemia 6 Suspect advanced COPD with chronic hypoxic respiratory failure, patient is on home oxygen at bedtime 7 Morbid obesity 8 History of breast cancer 9 History of atrial fibrillation on Eliquis, amiodarone, and digoxin Plan: The patient was seen and evaluated by Dr. Brewer CAT scan and labs reviewed Continue IV diuretics Titrate the FiO2 as tolerated Continue bronchodilators, steroids We will continue to follow I, the cosigning physician, performed a history & physical examination of the patient. Lungs sounds are present the posterior bases, few scattered rhonchi. Maintaining good O2 saturations in the 90s on 8 L high flow nasal cannula. I discussed the assessment and plan of care with my nurse practitioner, Grace Martin. I attest to the above note as dictated by her.
[2021-04-04] MEDS: methylPREDNISolone SOD SUCCI 40 MG/ML 1 ML VIAL IV SCH ×2 (15:48→23:00)
[2021-04-04 16:24] LABS: Glucose,Whole Blood 270 mg/dL (75-99)
[2021-04-04 20:12] LABS: Glucose,Whole Blood 304 mg/dL (75-99)
--- NOTE | 2021-04-04 20:38 | PN ---
PROGRESS NOTE DATE OF SERVICE: 04/04/2021 This 70-year-old woman was admitted with shortness of breath and cough thought to have bilateral pneumonia. The patient also being evaluated for fluid overload also. The patient also had elevated D-dimer. A 2D echo with Doppler was done yesterday which showed ejection fraction about 40-45 percent, mild aortic sclerosis also noted. Mild pulmonary hypertension also noted. The patient also had a chest CT today which I reviewed personally and showed no evidence of any pulmonary embolism. Bilateral infiltrates and small pleural effusion was also noted. The pattern of the pneumonia shows mostly an interstitial predominance. PAST MEDICAL HISTORY: Reviewed. REVIEW OF SYSTEMS: Cardiovascular: No angina. Otherwise as mentioned earlier. Respiratory as mentioned earlier. GI no nausea or vomiting. no dysuria. Nervous system: Mild diffuse weakness. CURRENT MEDICATIONS: Reviewed and include [place], Ventolin, Cordarone, Norvasc, Eliquis, aspirin, Lipitor, Percocet, Rocephin, Lasix, NovoLog. PHYSICAL EXAMINATION: Patient is alert, oriented x3. Pulse 73. Blood pressure 149/58, respiration 20, temperature 98.4, pulse ox 94% on 6 L. HEENT: Conjunctivae normal. NECK: No JVD. CARDIOVASCULAR: S1, S2 muffled. RESPIRATORY SYSTEM: Breath sounds diminished at the bases. A few scattered rhonchi and crackles. ABDOMEN: Soft, nontender. LEGS: No edema. No swelling. NERVOUS SYSTEM: No focal deficits. LABS: At this time WBC 14.8, hemoglobin 13.6, and BUN is 51, creatinine is 0.68. Glucose noted. ASSESSMENT: 1. Acute bilateral pneumonia, interstitial pneumonia possibly gram-negative with acute hypoxic respiratory failure and sepsis present on admission. 2. Possible congestive heart failure, acute exacerbation with acute on chronic systolic dysfunction, ejection fraction 40-45 percent. 3. Change in mental status, acute metabolic encephalopathy secondary to sepsis and pneumonia. 4. Elevated D-dimer. 5. History of THC. 6. Increased MCV. 7. Increased CRP. 8. History of chronic obstructive pulmonary disease. 9. Hypertension. 10.Hyperlipidemia. 11.History of myocardial infarction. 12.History of hypothyroidism. 13.History of CPAP and obstructive sleep apnea. 14.History of pacemaker. 15.History of breast cancer. 16.History of Staph infection of the lower spine previously. 17.History of nicotine dependence. 18.History of cholecystectomy. 19.History of mastectomy. 20.History of continued ongoing nicotine dependence. 21.Depression. 22.Obesity with body mass index of 36.6. 23.FULL CODE. RECOMMENDATIONS AND DISCUSSION: Recommend to continue current medications, management and symptomatic treatment. Otherwise, at this time, I recommend continue the antibiotics, bronchodilators. Continue with the IV diuresis. Monitor fluid/electrolyte balance closely. CTA chest and chest x-ray noted personally. Guarded prognosis. Further recommendations to follow. The patient has been on Lasix 40 mg IV q.8. Patient is being significantly diuresed at this time. MMODL / IJN: [id number] /
[2021-04-05 06:03] LABS: Glucose,Whole Blood 221 mg/dL (75-99)
[2021-04-05] MEDS: PANTOPRAZOLE 40 MG TABLET PO SCH (06:07)
[2021-04-05] MEDS: INSULIN ASPART (NovoLOG) 100 UNIT/ML VIAL SQ SCH ×4 (06:07→20:02)
[2021-04-05] MEDS: BUDESONIDE 1 MG/2 ML NEBU INHALATION SCH ×2 (07:47→19:07)
[2021-04-05] MEDS: FORMOTEROL FUMARATE 20 MCG/2 ML NEBU INHALATION SCH ×2 (07:47→19:07)
[2021-04-05] MEDS: IPRATROPIUM-ALBUTEROL 3 ML NEB INHALATION SCH ×4 (07:47→19:07)
[2021-04-05] MEDS: FUROSEMIDE 10 MG/ML 4 ML VIAL IV SCH ×3 (08:00→23:01)
[2021-04-05] MEDS: methylPREDNISolone SOD SUCCI 40 MG/ML 1 ML VIAL IV SCH ×2 (08:00→16:20)
[2021-04-05] MEDS: NICOTINE 21MG/24HR PATCH TRANSDERM SCH (09:10)
[2021-04-05] MEDS: LOSARTAN 50 MG TAB PO SCH (09:12)
[2021-04-05] MEDS: ATORVASTATIN 10 MG TAB PO SCH (09:12)
[2021-04-05] MEDS: ASPIRIN 81 MG PO SCH (09:12)
[2021-04-05] MEDS: amLODIPine 5 MG TAB PO SCH (09:12)
[2021-04-05] MEDS: DIGOXIN 125 MCG TAB PO SCH (09:12)
[2021-04-05] MEDS: AMIODARONE 200 MG TAB PO SCH (09:12)
[2021-04-05] MEDS: APIXABAN 5 MG TAB PO SCH ×2 (09:12→20:02)
[2021-04-05 11:26] LABS: Glucose,Whole Blood 378 mg/dL (75-99)
[2021-04-05 11:34] LABS: Glucose,Whole Blood 365 mg/dL (75-99)
--- NOTE | 2021-04-05 12:47 | P.PN ---
Subjective Progress Note Date: 04/05/21 Principal diagnosis: Acute on chronic hypoxic respiratory failure secondary to acute exacerbation of congestive heart failure, systolic dysfunction, and acute exacerbation of COPD. This is a 70-year-old white female patient with past medical history of COPD, on home oxygen at bedtime, current smoker, smoked for 54 years, currently smoking half a pack a day, history of permanent pacemaker placement in October 2020 for unknown circumstances. Patient was transferred from [facility] on 04/01/2021 where she was taken by her for evaluation of increased shortness of breath, coughing, oxygen saturations, she was reportedly having a pulse ox readings in the 40s on room air at home. Chest x-ray at the [facility] showed bilateral pleural effusions. Patient was placed on supplemental oxygen, however her O2 saturations on 13 L or still in the low 80s. She was placed on BiPAP support in the ER, currently she is back on nasal cannula. She is lethargic, but arousable. She denied any chest pain, denied any fever, she does have a congested cough, she admitted that she still smoking. She denied any fever, denied any hemoptysis. She is noted to have mild pretibial edema. She was reportedly checked for COVID-19 at the [facility] and was found to be negative. Lab work at this institution reveals a white blood cell count of 12.07, hemoglobin is 12.3, d-dimer is 0.64, CRP is 4.2. ProBNP is pending. Today's chest x-ray shows low lung volumes, patient is rotated, left lower lobe atelectasis versus edema, pleural effusion, in terstitial edema, and underlying emphysema. Patient was started on antibiotics in the form of azithromycin and Rocephin, IV steroids, nebulized bronchodilators, however she has not been started on any diuretics. There are scattered crackles on physical exam, she is currently on 15 L of oxygen her pulse ox is 93%, she is awake and alert, oriented 3, but gas was ordered by the attending hospitalist, however in view of her alert level of consciousness, we'll cancel the blood gas, we'll start the diuretics and transfer the patient to the selective care for closer monitoring. The patient is seen today 04/03/2021 in follow-up on selective care unit. She is much more awake and alert today. She is currently on 15 L high flow nasal cannula and maintaining O2 saturations in the high 90s. Once decreased to 10 L she is still maintaining O2 saturations in the 90s. She has trace peripheral edema. Chest x-ray continues to show interstitial edema atelectasis at the right minor fissure with small bilateral effusions. Blood cultures reveal no growth to date. White count 15.9. Hemoglobin 13.4. Platelets 206. Pro- calcitonin 0.05. LDH 848. C-reactive protein 2.8. Spencer virus not detected. She remains on DuoNeb inhalations, Pulmicort and Perforomist inhalations, IV Solu-Medrol. Anticoagulated with Eliquis. Remains on IV diuretics. Remains in a negative balance. Empiric antibiotics in the form of ceftriaxone. The patient is seen today 04/04/2021 in follow-up on the selective care unit. She is currently sitting up in a chair at the bedside. More awake and alert today. She is still requiring 8 L high flow nasal cannula to maintain O2 saturations in the 90s. Echocardiogram reveals moderately impaired left ventricular systolic function with ejection fraction 40-45%. Mild pulmonary hypertension. She remains in atrial fibrillation. CT angiogram ruled out pulmonary embolism. There is bilateral areas of infiltrate and small effusions. Evidence of COPD. Blood cultures reveal no growth. White count 14.0. Hemoglobin 13.6. Sodium 140. Potassium 4.6. Creatinine 0.68. Bicarb 38. Glucose 285. She remains on bronchodilators, IV Solu-Medrol, IV diuretics. Antibiotics in the form of ceftriaxone. NicoDerm patch in place. Patient was reevaluated today on 04/05/2021, remains on selective, patient is doing well, she is now on 6 L nasal cannula, has been ambulating, doing much better today compared to the last few days. Again her CT angiogram ruled out pulmonary embolism, patient has bilateral infiltrates and pleural effusions, her CT of the chest also showed evidence of COPD. Clinically the patient is feeling great. No labs available today except for blood sugar was noted to be elevated at 365. Her BUN yesterday was 51 creatinine 0.68. Bicarb is 38. Objective - Vital Signs Vital signs: Vital Signs Temp 98.1 F 04/05/21 08:00 Pulse 74 04/05/21 11:41 Resp 18 04/05/21 08:00 BP 141/60 04/05/21 08:00 Pulse Ox 93 L 04/05/21 08:00 Intake & Output 04/04/21 04/05/21 04/05/21 18:59 06:59 18:59 Intake Total 1200 476 Output Total 2225 1520 Balance -1025 -1520 476 Weight 103 kg 101 kg Intake: Oral 1200 476 Output: Urine 2225 1520 Other: Voiding Method Diaper Diaper Toilet Incontinent Incontinent # Voids 1 - Exam Physical Exam: Revealed a very pleasant 68-year-old female on 6 L nasal cannula, in no distress. Head: Atraumatic, normocephalic. HEENT:[Neck is supple.] [No neck masses.] [No thyromegaly.] [No JVD.] Chest: Symmetrical chest expansion minimal crackles at the bases. No rhonchi and no wheezes. Cardiac Exam: [Normal S1 and S2, no S3 gallop, no murmur.] Abdomen: [Soft, nontender, no megaly, no rebound, no guarding, normal bowel sounds.] Extremities: [No clubbing, trace of bipedal edema, no cyanosis.] Good pulses bilaterally. Neurological Exam: [No focal neurologic deficit.] Alert and oriented 3. Psychiatric: Normal mood affect and normal mental status examination. Musculoskeletal: No deformities noted limitation in range of motion. Skin: No rashes. - Labs CBC & Chem 7: 04/04/21 08:57 04/04/21 08:57 Labs: Abnormal Lab Results - Last 24 Hours (Table) 04/04/21 04/04/21 04/05/21 Range/Units 16:23 20:08 06:01 POC Glucose (mg/dL) 270 H 304 H 221 H (75-99) mg/dL 04/05/21 04/05/21 Range/Units 11:25 11:28 POC Glucose (mg/dL) 378 H 365 H (75-99) mg/dL Microbiology - Last 24 Hours (Table) 04/02/21 00:23 Blood Culture - Preliminary Blood No Growth after 72 hours 04/02/21 00:08 Blood Culture - Preliminary Blood No Growth after 72 hours Assessment and Plan Assessment: Impression: Acute on chronic hypoxic failure, multifactorial. Secondary to acute congestive heart failure systolic in nature, and secondary to acute exacerbation of COPD. Chronic ongoing tobacco dependence syndrome. Benign essential hypertension. History of advanced COPD and chronic hypoxic respiratory failure. History of breast cancer. Chronic atrial fibrillation maintained on Eliquis amiodarone and digoxin. Recommendation: Continue diuretics, continue bronchodilators, continue to titrate FiO2 hopefully could get her down to her usual dose and eventually consider discharge planning in the next 2 days. We'll continue to follow, likely the patient is progressing nicely. And impr oving on a steady basis. Time with Patient: Less than 30
--- NOTE | 2021-04-05 13:28 | P.PN ---
Subjective Progress Note Date: 04/05/21 HISTORY OF PRESENT ILLNESS: This is a 70-year-old female with a past medical history significant for paroxysmal atrial fibrillation, pacemaker insertion, COPD, TIA, and nicotine dependence. Patient follows with a animal health technician in [place], [place]. We have been asked to see the patient in consultation for congestive heart failure. Patient examined at the bedside. Per the ER physician note, the patient was brought to the hospital secondary to shortness of breath and hypoxia. The patient states she came to the hospital because she was having jerking movements of her right upper extremity and thought she was having a heart attack. Patient currently denies chest pain or pressure. She denies shortness of breath. She denies dizziness or lightheadedness. Telemetry reveals sinus mechanism. Patient reports smoking 1PPD. EKG reveals sinus mechanism. Chest xray difficult to exclude left lower lobe pneumonia versus edema, atelectasis, effusion, correlate for congestive heart failure. Laboratory data: WBC 14.0. Hemoglobin 13.6. Please count 220. Sodium 140. Potassium 4.6. BUN 51. Creatinine 0.68. Magnesium 2.0. Troponin 0.015. BNP 673. Current home cardiac medications include Norvasc 5 mg daily, simvastatin 20 mg daily, losartan 50 mg daily, digoxin 125mcg daily, aspirin 81 mg daily, amiodarone 290 g daily, and Eliquis 5 mg twice a day Most recent echocardiogram obtained in 2019 revealed ejection fraction 60-65%, mild mitral regurgitation, mild tricuspid regurgitation, mild pulmonary hypertension. 04/05/2021 Patient examined this morning at the bedside. Patient denies chest pain or pressure. She denies shortness of breath. She denies dizziness or lightheadedness. She remains on IV Lasix 40 mg every 8 hours. Echocardiogram completed revealed ejection fraction 40-45%, mild aortic stenosis, mild mitral regurgitation and mild pulmonary hypertension PHYSICAL EXAM: VITAL SIGNS: Reviewed. GENERAL: Well-developed in no acute distress. HEENT: Head is normocephalic. Pupils are equal, round. Sclerae anicteric. Mucous membranes of the mouth are moist. Neck supple. No JVD or thyromegaly LUNGS: Respirations even and unlabored. Lungs diminished with minimal bibasilar rales HEART: Regular rate and rhythm. S1 and S2 heard. ABDOMEN: Soft. Nondistended. Nontender. EXTREMITIES: Normal range of motion. No clubbing or cyanosis. Peripheral pulses intact. trace bilateral lower extremity edema NEUROLOGIC: Awake and alert. Oriented x 3. ASSESSMENT: Acute hypoxic respiratory failure Acute exacerbation of COPD Acute diastolic congestive heart failure Paroxysmal atrial fibrillation, on anticoagulation with Eliquis Hypertension Hyperlipidemia Coronary artery disease without PCI, per patient Nicotine dependence History of pacemaker insertion PLAN: Continue current cardiac medications Continue anticoagulation with Eliquis Continue IV lasix. Possible transition to oral dosing tomorrow Monitor kidney function Accurate I&O Daily weights Further recommendations pending patient course Nurse practitioner note has been reviewed by physician. Signing provider agrees with the documented findings, assessment, and plan of care. Objective - Vital Signs Vital signs: Vital Signs Temp 97.5 F L 04/05/21 12:00 Pulse 70 04/05/21 12:00 Resp 18 04/05/21 12:00 BP 117/61 04/05/21 12:00 Pulse Ox 97 04/05/21 12:00 Intake & Output 04/04/21 04/05/21 04/05/21 18:59 06:59 18:59 Intake Total 1200 2404 Output Total 2225 1520 Balance -1025 -1520 2404 Weight 103 kg 101 kg Intake: Intake, IV Titration 500 Amount cefTRIAXone 2 gm In 500 Sodium Chloride 0.9% 50 ml @ 100 mls/hr IVPB Q24HR ON LICENSE OF [facility] Rx#:[id number] Oral 1200 1904 Output: Urine 2225 1520 Other: Voiding Method Diaper Diaper Toilet Incontinent Incontinent # Voids 1 1 - Labs CBC & Chem 7: 04/04/21 08:57 04/04/21 08:57 Labs: Abnormal Lab Results - Last 24 Hours (Table) 04/04/21 04/04/21 04/05/21 Range/Units 16:23 20:08 06:01 POC Glucose (mg/dL) 270 H 304 H 221 H (75-99) mg/dL 04/05/21 04/05/21 Range/Units 11:25 11:28 POC Glucose (mg/dL) 378 H 365 H (75-99) mg/dL Microbiology - Last 24 Hours (Table) 04/02/21 00:23 Blood Culture - Preliminary Blood No Growth after 72 hours 04/02/21 00:08 Blood Culture - Preliminary Blood No Growth after 72 hours
[2021-04-05 16:32] LABS: Glucose,Whole Blood 427 mg/dL (75-99)
[2021-04-05 20:32] LABS: Glucose,Whole Blood 359 mg/dL (75-99)
--- NOTE | 2021-04-05 22:23 | PN ---
PROGRESS NOTE DATE OF SERVICE: 04/05/2021 This 70-year-old woman who was admitted with acute bilateral pneumonia and CHF also is improving significantly. No chest pain. No palpitations. No fever. PHYSICAL EXAMINATION: Alert and oriented times three. Pulse 72. Blood pressure 117/61, respirations 18. Temperature 97.4, pulse ox 97% on 6 L. HEENT is conjunctivae normal. Neck: No JVD. Cardiovascular: S1, S2 muffled. Respiratory system: Breath sounds diminished at the bases. Bilateral scattered rhonchi and crackles. Abdomen: Soft, nontender. Nervous System: No focal deficits. LABS: WBC 14, Accu-Cheks noted. ASSESSMENT: 1. Acute bilateral pneumonia, interstitial pneumonia possibly gram-negative with acute hypoxic respiratory failure and sepsis present on admission. 2. Possible congestive heart failure acute exacerbation with acute on chronic systolic dysfunction, ejection fraction 40-45 percent. 3. Change in mental status, acute metabolic encephalopathy secondary to sepsis and pneumonia. 4. Elevated D-dimer. 5. Diabetes mellitus type 2 uncontrolled with hyperglycemia. 6. Increased MCV. 7. Increased CRP. 8. History of chronic obstructive pulmonary disease. 9. Hypertension. 10.Hyperlipidemia. 11.History of myocardial infarction. 12.Hypothyroidism. 13.History of sleep apnea. 14.Obstructive sleep apnea. 15.History of pacemaker. 16.History of breast cancer. 17.History of Staph infection to lower spine previously. 18.History of nicotine dependence. 19.History of cholecystectomy. 20.History of mastectomy. 21.History of continued ongoing nicotine dependence. 22.Depression. 23.Obesity with body mass of 36.6. 24.FULL CODE. RECOMMENDATIONS AND DISCUSSION: Recommend to continue current medication, continue symptomatic treatment. Otherwise at this time, I recommend continue to monitor. Prognosis guarded because of multiple complex medical issues. Further recommendations to follow. We will stop the steroids at this time. MMODL / IJN: [id number] /
[2021-04-06] MEDS: INSULIN ASPART (NovoLOG) 100 UNIT/ML VIAL SQ SCH ×2 (06:35→12:10)
[2021-04-06] MEDS: PANTOPRAZOLE 40 MG TABLET PO SCH (06:37)
[2021-04-06 06:40] LABS: Glucose,Whole Blood 139 mg/dL (75-99)
[2021-04-06] MEDS: IPRATROPIUM-ALBUTEROL 3 ML NEB INHALATION SCH ×3 (07:10→15:30)
[2021-04-06] MEDS: FORMOTEROL FUMARATE 20 MCG/2 ML NEBU INHALATION SCH (07:10)
[2021-04-06] MEDS: BUDESONIDE 1 MG/2 ML NEBU INHALATION SCH (07:10)
[2021-04-06 08:08] LABS: Basophils % (A) 0 %; Eosinophils # (A) 0.1 k/uL (0-0.7); Eosinophils % (A) 1 %; HGB 14.1 gm/dL (11.4-16.0); Hypochromasia Moderate; Lymphocytes # (A) 0.7 k/uL (1.0-4.8); Lymphocytes % (A) 6 %; MCH 27.9 pg (25.0-35.0); MCHC 31.4 g/dL (31.0-37.0); MCV 88.8 fL (80.0-100.0); Mean Platelet Volume 8.1; Monocytes % (A) 8 %; Neutrophils # (A) 10.4 k/uL (1.3-7.7); Neutrophils % (A) 85 %; Platelet Count 243 k/uL (150-450); RBC 5.07 m/uL (3.80-5.40); RDW 13.5 % (11.5-15.5); WBC 12.3 k/uL (3.8-10.6)
[2021-04-06 08:27] LABS: African American GFR (CKD) >90 (>60 ml/min/1.73 sqM); Blood Urea Nitrogen 47 mg/dL (7-17); Calcium 8.6 mg/dL (8.4-10.2); Chloride 90 mmol/L (98-107); Glucose 122 mg/dL (74-99); Non-African American GFR(CKD) >90 (>60 ml/min/1.73 sqM); Sodium 140 mmol/L (137-145)
[2021-04-06 08:33] LABS: Anion Gap 7 mmol/L
[2021-04-06 08:44] LABS: Carbon Dioxide 43 mmol/L (22-30)
[2021-04-06 08:45] LABS: Potassium 4.7 mmol/L (3.5-5.1)
[2021-04-06] MEDS: amLODIPine 5 MG TAB PO SCH (09:00)
[2021-04-06] MEDS ORDERED: predniSONE 20 MG TAB PO SCH (09:00)
[2021-04-06] MEDS: FUROSEMIDE 10 MG/ML 4 ML VIAL IV SCH (09:00)
[2021-04-06] MEDS: APIXABAN 5 MG TAB PO SCH (09:00)
[2021-04-06] MEDS: ASPIRIN 81 MG PO SCH (09:01)
[2021-04-06] MEDS: NICOTINE 21MG/24HR PATCH TRANSDERM SCH (09:01)
[2021-04-06] MEDS: AMIODARONE 200 MG TAB PO SCH (09:01)
[2021-04-06] MEDS: DIGOXIN 125 MCG TAB PO SCH (09:01)
[2021-04-06] MEDS: LOSARTAN 50 MG TAB PO SCH (09:01)
[2021-04-06] MEDS: ATORVASTATIN 10 MG TAB PO SCH (09:01)
[2021-04-06 09:18] VITALS: RESP 20; TEMP 97.8
--- NOTE | 2021-04-06 10:37 | P.PN ---
Subjective Progress Note Date: 04/06/21 HISTORY OF PRESENT ILLNESS: This is a 70-year-old female with a past medical history significant for paroxysmal atrial fibrillation, pacemaker insertion, COPD, TIA, and nicotine dependence. Patient follows with a director call in [place], [place]. We have been asked to see the patient in consultation for congestive heart failure. Patient examined at the bedside. Per the ER physician note, the patient was brought to the hospital secondary to shortness of breath and hypoxia. The patient states she came to the hospital because she was having jerking movements of her right upper extremity and thought she was having a heart attack. Patient currently denies chest pain or pressure. She denies shortness of breath. She denies dizziness or lightheadedness. Telemetry reveals sinus mechanism. Patient reports smoking 1PPD. EKG reveals sinus mechanism. Chest xray difficult to exclude left lower lobe pneumonia versus edema, atelectasis, effusion, correlate for congestive heart failure. Laboratory data: WBC 14.0. Hemoglobin 13.6. Please count 220. Sodium 140. Potassium 4.6. BUN 51. Creatinine 0.68. Magnesium 2.0. Troponin 0.015. BNP 673. Current home cardiac medications include Norvasc 5 mg daily, simvastatin 20 mg daily, losartan 50 mg daily, digoxin 125mcg daily, aspirin 81 mg daily, amiodarone 290 g daily, and Eliquis 5 mg twice a day Most recent echocardiogram obtained in 2019 revealed ejection fraction 60-65%, mild mitral regurgitation, mild tricuspid regurgitation, mild pulmonary hypertension. 04/05/2021 Patient examined this morning at the bedside. Patient denies chest pain or pressure. She denies shortness of breath. She denies dizziness or lightheadedness. She remains on IV Lasix 40 mg every 8 hours. Echocardiogram completed revealed ejection fraction 40-45%, mild aortic stenosis, mild mitral regurgitation and mild pulmonary hypertension 04/06/2021 Patient examined this morning. She is sitting up in the chair. She denies shortness of breath. She remains on nasal cannula with oxygen saturations greater than 92%. She denies chest pain or pressure. She has been transitioned to oral Lasix per pulmonary this morning. PHYSICAL EXAM: VITAL SIGNS: Reviewed. GENERAL: Well-developed in no acute distress. HEENT: Head is normocephalic. Pupils are equal, round. Sclerae anicteric. Mucous membranes of the mouth are moist. Neck supple. No JVD or thyromegaly LUNGS: Respirations even and unlabored. Lungs diminished HEART: Regular rate and rhythm. S1 and S2 heard. ABDOMEN: Soft. Nondistended. Nontender. EXTREMITIES: Normal range of motion. No clubbing or cyanosis. Peripheral pulses intact. trace bilateral lower extremity edema NEUROLOGIC: Awake and alert. Oriented x 3. ASSESSMENT: Acute hypoxic respiratory failure Acute exacerbation of COPD Acute diastolic congestive heart failure Paroxysmal atrial fibrillation, on anticoagulation with Eliquis Hypertension Hyperlipidemia Coronary artery disease without PCI, per patient Nicotine dependence History of pacemaker insertion PLAN: Continue current cardiac medications Continue anticoagulation with Eliquis Lasix has been transitioned to oral dosing per pulmonary Monitor kidney function Accurate I&O Daily weights Patient is stable for discharge home today from a cardiac standpoint. She is to follow up on an outpatient basis with her primary director call in [facility] Nurse practitioner note has been reviewed by physician. Signing provider agrees with the documented findings, assessment, and plan of care. Objective - Vital Signs Vital signs: Vital Signs Temp 97.8 F 04/06/21 08:00 Pulse 70 04/06/21 08:00 Resp 20 04/06/21 08:00 BP 108/59 04/06/21 08:00 Pulse Ox 91 L 04/06/21 08:00 Intake & Output 04/05/21 04/06/21 04/06/21 18:59 06:59 18:59 Intake Total 2880 240 Output Total 300 250 Balance 2880 -300 -10 Weight 98 kg Intake: Intake, IV Titration 500 Amount cefTRIAXone 2 gm In 500 Sodium Chloride 0.9% 50 ml @ 100 mls/hr IVPB Q24HR [facility] Rx#:[id number] Oral 2380 240 Output: Urine 300 250 Other: Voiding Method Toilet Toilet # Voids 1 1 - Labs CBC & Chem 7: 04/06/21 07:35 04/06/21 07:35 Labs: Abnormal Lab Results - Last 24 Hours (Table) 04/05/21 04/05/21 04/05/21 Range/Units 11:25 11:28 16:30 WBC (3.8-10.6) k/uL Neutrophils # (1.3-7.7) k/uL Lymphocytes # (1.0-4.8) k/uL Chloride (98-107) mmol/L Carbon Dioxide (22-30) mmol/L BUN (7-17) mg/dL Glucose (74-99) mg/dL POC Glucose (mg/dL) 378 H 365 H 427 H (75-99) mg/dL 04/05/21 04/06/21 04/06/21 Range/Units 20:00 06:31 07:35 WBC (3.8-10.6) k/uL Neutrophils # (1.3-7.7) k/uL Lymphocytes # (1.0-4.8) k/uL Chloride 90 L (98-107) mmol/L Carbon Dioxide 43 H* (22-30) mmol/L BUN 47 H (7-17) mg/dL Glucose 122 H (74-99) mg/dL POC Glucose (mg/dL) 359 H 139 H (75-99) mg/dL 04/06/21 Range/Units 07:35 WBC 12.3 H (3.8-10.6) k/uL Neutrophils # 10.4 H (1.3-7.7) k/uL Lymphocytes # 0.7 L (1.0-4.8) k/uL Chloride (98-107) mmol/L Carbon Dioxide (22-30) mmol/L BUN (7-17) mg/dL Glucose (74-99) mg/dL POC Glucose (mg/dL) (75-99) mg/dL Microbiology - Last 24 Hours (Table) 04/02/21 00:23 Blood Culture - Preliminary Blood No Growth after 96 hours 04/02/21 00:08 Blood Culture - Preliminary Blood No Growth after 96 hours
--- NOTE | 2021-04-06 11:31 | P.PN ---
Subjective Progress Note Date: 04/06/21 Principal diagnosis: Dyspnea, cough, hypoxia, abnormal chest x-ray, altered mental status This is a 70-year-old white female patient with past medical history of COPD, on home oxygen at bedtime, current smoker, smoked for 54 years, currently smoking half a pack a day, history of permanent pacemaker placement in October 2020 for unknown circumstances. Patient was transferred from [facility] on 04/01/2021 where she was taken by her for evaluation of increased shortness of breath, coughing, oxygen saturations, she was reportedly having a pulse ox readings in the 40s on room air at home. Chest x-ray at the [facility] showed bilateral pleural effusions. Patient was placed on supplemental oxygen, however her O2 saturations on 13 L or still in the low 80s. She was placed on BiPAP support in the ER, currently she is back on nasal cannula. She is lethargic, but arousable. She denied any chest pain, denied any fever, she does have a congested cough, she admitted that she still smoking. She denied any fever, denied any hemoptysis. She is noted to have mild pretibial edema. She was reportedly checked for COVID-19 at the [facility] and was found to be negative. Lab work at this institution reveals a white blood cell count of 12.07, hemoglobin is 12.3, d-dimer is 0.64, CRP is 4.2. ProBNP is pending. Today's chest x-ray shows low lung volumes, patient is rotated, left lower lobe atelectasis versus edema, pleural effusion, interstitial edema, and underlying emphysema. Patient was started on antibiotics in the form of azithromycin and Rocephin, IV steroids, nebulized bronchodilators, however she has not been started on any diuretics. There are scattered crackles on physical exam, she is currently on 15 L of oxygen her pulse ox is 93%, she is awake and alert, oriented 3, but gas was ordered by the attending hospitalist, however in view of her alert level of consciousness, we'll cancel the blood gas, we'll start the diuretics and transfer the patient to the selective care for closer monitoring. The patient is seen today 04/03/2021 in follow-up on selective care unit. She is much more awake and alert today. She is currently on 15 L high flow nasal cannula and maintaining O2 saturations in the high 90s. Once decreased to 10 L she is still maintaining O2 saturations in the 90s. She has trace peripheral edema. Chest x-ray continues to show interstitial edema atelectasis at the right minor fissure with small bilateral effusions. Blood cultures reveal no growth to date. White count 15.9. Hemoglobin 13.4. Platelets 206. Pro- calcitonin 0.05. LDH 848. C-reactive protein 2.8. Spencer virus not detected. She remains on DuoNeb inhalations, Pulmicort and Perforomist inhalations, IV Solu-Medrol. Anticoagulated with Eliquis. Remains on IV diuretics. Remains in a negative balance. Empiric antibiotics in the form of ceftriaxone. The patient is seen today 04/04/2021 in follow-up on the selective care unit. She is currently sitting up in a chair at the bedside. More awake and alert today. She is still requiring 8 L high flow nasal cannula to maintain O2 saturations in the 90s. Echocardiogram reveals moderately impaired left ventricular systolic function with ejection fraction 40-45%. Mild pulmonary hypertension. She remains in atrial fibrillation. CT angiogram ruled out pulmo nary embolism. There is bilateral areas of infiltrate and small effusions. Evidence of COPD. Blood cultures reveal no growth. White count 14.0. Hemoglobin 13.6. Sodium 140. Potassium 4.6. Creatinine 0.68. Bicarb 38. Glucose 285. She remains on bronchodilators, IV Solu-Medrol, IV diuretics. Antibiotics in the form of ceftriaxone. NicoDerm patch in place. Patient was reevaluated today on 04/05/2021, remains on selective, patient is doing well, she is now on 6 L nasal cannula, has been ambulating, doing much better today compared to the last few days. Again her CT angiogram ruled out pulmonary embolism, patient has bilateral infiltrates and pleural effusions, her CT of the chest also showed evidence of COPD. Clinically the patient is feeling great. No labs available today except for blood sugar was noted to be elevated at 365. Her BUN yesterday was 51 creatinine 0.68. Bicarb is 38. On 04/06/2021 patient seen in follow-up on selective care unit, she is awake and alert, in no acute distress. Breathing comfortably, she is up ambulating with the physical therapy, requiring minimal assistance, mainly supervision, stable on her feet, tolerating ambulation, she is currently on 4 L of oxygen pulse ox is 91%, she is unsure how much oxygen she normally wears at home, she states check with my , vital signs have been stable, afebrile, blood pressure is been stable. Breathing is stable, no complaints of chest discomfort, chest CTA showed no evidence of pulmonary embolism, it did show bilateral areas of infiltrates and small pleural effusions the possibility of a pneumonia versus CHF. His had no fever or chills, today's labs have been reviewed, blood cell count is 12.3, hemoglobin is 14.1, sodium is 140, potassium is 4.7, chloride is 90, CO2 is 43, BUN is 47, creatinine 0.61. Pro-calcitonin level was negative at 0.05, Knox possibility of bacterial infection including pneumonia less likely. Blood cultures have shown no growth. Patient has been on IV diuretics with Lasix 40 mg every 8 hours. Her weight is down by 3 kg in the last 24 hours, lower extremity edema is improving. Continues on nebulized bronchodilators. The steroids have been transitioned to oral prednisone. Objective - Vital Signs Vital signs: Vital Signs Temp 97.8 F 04/06/21 08:00 Pulse 70 04/06/21 08:00 Resp 20 04/06/21 08:00 BP 108/59 04/06/21 08:00 Pulse Ox 91 L 04/06/21 08:00 Intake & Output 04/05/21 04/06/21 04/06/21 18:59 06:59 18:59 Intake Total 2880 240 Output Total 300 800 Balance 2880 -300 -560 Weight 98 kg Intake: Intake, IV Titration 500 Amount cefTRIAXone 2 gm In 500 Sodium Chloride 0.9% 50 ml @ 100 mls/hr IVPB Q24HR [facility] Rx#:[id number] Oral 2380 240 Output: Urine 300 800 Other: Voiding Method Toilet Toilet # Voids 1 1 - Exam GENERAL EXAM: Alert, very pleasant, 70-year-old white female, on 4 L of oxygen with pulse ox of 91%, comfortable in no apparent distress. HEAD: Normocephalic/atraumatic. EYES: Normal reaction of pupils, equal size. Conjunctiva pink, sclera white. NOSE: Clear with pink turbinates. THROAT: No erythema or exudates. NECK: No masses, no JVD, no thyroid enlargement, no adenopathy. CHEST: No chest wall deformity. Symmetrical expansion. LUNGS: Equal air entry with diminished breath sounds and scattered crackles CVS: Irregular rate and rhythm, normal S1 and S2, no gallops, no murmurs, no rubs ABDOMEN: Soft, nontender. No hepatosplenomegaly, normal bowel sounds, no guarding or rigidity. EXTREMITIES: No clubbing, trace pretibial edema is present no cyanosis, 2+ pulses and upper and lower extremities. MUSCULOSKELETAL: Muscle strength and tone normal. SPINE: No scoliosis or deformity SKIN: No rashes CENTRAL NERVOUS SYSTEM: Alert and oriented -3. No focal deficits, tone is normal in all 4 extremities. PSYCHIATRIC: Alert and oriented -3. Appropriate affect. Intact judgment and insight. - Labs CBC & Chem 7: 04/06/21 07:35 04/06/21 07:35 Labs: Abnormal Lab Results - Last 24 Hours (Table) 04/05/21 04/05/21 04/05/21 Range/Units 11:25 11:28 16:30 WBC (3.8-10.6) k/uL Neutrophils # (1.3-7.7) k/uL Lymphocytes # (1.0-4.8) k/uL Chloride (98-107) mmol/L Carbon Dioxide (22-30) mmol/L BUN (7-17) mg/dL Glucose (74-99) mg/dL POC Glucose (mg/dL) 378 H 365 H 427 H (75-99) mg/dL 04/05/21 04/06/21 04/06/21 Range/Units 20:00 06:31 07:35 WBC (3.8-10.6) k/uL Neutrophils # (1.3-7.7) k/uL Lymphocytes # (1.0-4.8) k/uL Chloride 90 L (98-107) mmol/L Carbon Dioxide 43 H* (22-30) mmol/L BUN 47 H (7-17) mg/dL Glucose 122 H (74-99) mg/dL POC Glucose (mg/dL) 359 H 139 H (75-99) mg/dL 04/06/21 Range/Units 07:35 WBC 12.3 H (3.8-10.6) k/uL Neutrophils # 10.4 H (1.3-7.7) k/uL Lymphocytes # 0.7 L (1.0-4.8) k/uL Chloride (98-107) mmol/L Carbon Dioxide (22-30) mmol/L BUN (7-17) mg/dL Glucose (74-99) mg/dL POC Glucose (mg/dL) (75-99) mg/dL Microbiology - Last 24 Hours (Table) 04/02/21 00:23 Blood Culture - Preliminary Blood No Growth after 96 hours 04/02/21 00:08 Blood Culture - Preliminary Blood No Growth after 96 hours Assessment and Plan Plan: Assessment: #1. Acute on chronic hypoxic respiratory failure related to acute exacerbation of CHF with diastolic dysfunction. #2. Acute exacerbation of COPD #3. Chronic and ongoing history of smoking, currently smoking half a pack a day, years #4. Hypertension #5. Hyperlipidemia #6. Suspect advanced COPD with chronic hypoxic respiratory failure, patient is on home oxygen at bedtime #7. Morbid obesity #8. History of breast cancer #9. History of atrial fibrillation on Eliquis, amiodarone, and digoxin Plan: We'll switch the IV Lasix to oral Lasix 40 mg twice a day Continue nebulized bronchodilators Continue oral prednisone Patient is maintaining negative fluid balance She is breathing much easier She is tolerating ambulation Vital signs have been stable Stable for discharge home from pulmonary perspective She can finish outpatient short taper of prednisone, and she can continue on oral Lasix at 40 mg twice daily She'll need outpatient follow-up with Dr. Brewer in the office in 7 days I performed a history & physical examination of the patient and discussed their management with my nurse practitioner, Louise Andersen. I reviewed the nurse practitioner's note and agree with the documented findings and plan of care. Lung sounds are positive for diminished breath sounds. The findings and the impression was discussed with the patient. I attest to the documentation by the nurse practitioner. Time with Patient: Less than 30
[2021-04-06 11:43] LABS: Glucose,Whole Blood 205 mg/dL (75-99)
[2021-04-06 13:10] VITALS: BP 106/66; PULSE 61
[2021-04-06] MEDS ORDERED: FUROSEMIDE 40 MG TAB PO SCH (16:00)
--- NOTE | 2021-04-06 23:06 | DS ---
DISCHARGE SUMMARY DATE OF SERVICE: 04/06/2021 FINAL DIAGNOSES: 1. Acute bilateral pneumonia, interstitial pneumonia possibly gram-negative with acute hypoxic respiratory failure with sepsis, present on admission. 2. Possible congestive heart failure acute exacerbation, acute on chronic systolic dysfunction, ejection fraction 40-45 percent. 3. Change in mental status acute metabolic encephalopathy secondary to sepsis and pneumonia. 4. Elevated D-dimer. 5. Diabetes mellitus type 2, uncontrolled with hyperglycemia. 6. Increased MCV. 7. Increased CRP. 8. History of chronic obstructive pulmonary disease. 9. Hypertension. 10.Hyperlipidemia. 11.History of myocardial infarction. 12.Hypothyroidism. 13.Obstructive sleep apnea. 14.History of pacemaker. 15.History of breast cancer. 16.History of staph infection the lower spine previously. 17.History of nicotine dependence. 18.History of cholecystectomy. 19.History of mastectomy. 20.History of continued ongoing nicotine dependence. 21.Depression. 22.Obesity with body mass index of 36.6. 23.FULL CODE. DISCHARGE DISPOSITION: The patient being discharged in stable condition. Guarded prognosis. Total time taken 35 minutes. HISTORY OF PRESENT ILLNESS: This 70-year-old woman with a past medical history of multiple medical problems admitted with shortness of breath which was thought to be multifactorial. The patient had pneumonia as well as CHF treated in conjunction with Dr. Brewer and Cardiology. The patient was given antibiotics and bronchodilators. Patient improved significantly. Patient is found to be hypoxic. Patient has taken 3.5 L oxygen at home which will be continued. On exam, vitals stable. Cardiovascular S1, S2. Abdomen soft. Nervous system: No focal deficits.. DISCHARGE ADVICE AND MEDICATIONS: 1. Diet is cardiac diet. 2. Activity limited until followup. 3. Follow up with Dr. Brewer in 1 week. 4. Follow up with Dr. Sarah in 1-2 days. 5. Follow with Cardiology as recommended. 6. Cordarone 200 mg p.o. daily. 7. Cozaar 50 mg p.o. daily. 8. Ecotrin 81 mg. 9. Eliquis 5 mg b.i.d. 10.Lanoxin 125 mg p.o. daily. 11.Norvasc 5 mg p.o. daily. 12.Zocor 20 mg p.o. daily. 13.DuoNeb q.i.d. and p.r.n. 14.Habitrol 21 daily. 15.Lasix 40 mg p.o. b.i.d. 16.Prednisone taper 10 mg p.o. b.i.d. for 2 days and 10 mg daily for 2 days. 17.Symbicort 1 puff b.i.d. 18.Accu-Cheks before meals and at bedtime and results to Dr. Sarah. Once again the patient discharged in stable condition with guarded prognosis. MMODL / IJN: [id number] /
== END 2021-04-06 16:07 | disposition home or self-care (01) | DRG 871 ==
LOC: EC 23:13 → 4SSUR 04-02 00:15 → 3SCARD 04-02 12:09
PROVIDERS: ADMIT Hospitalist; ATTEND Hospitalist
DX: A41.9 Sepsis, unspecified organism (principal); J96.21 Acute and chronic respiratory failure with hypoxia; I50.23 Acute on chronic systolic (congestive) heart failure; G93.41 Metabolic encephalopathy; J15.6 Pneumonia due to other Gram-negative bacteria; E87.2 Acidosis; J98.11 Atelectasis; I27.20 Pulmonary hypertension, unspecified; I11.0 Hypertensive heart disease with heart failure; J43.9 Emphysema, unspecified; E11.65 Type 2 diabetes mellitus with hyperglycemia; R65.20 Severe sepsis without septic shock; E66.01 Morbid (severe) obesity due to excess calories; I70.0 Atherosclerosis of aorta; I48.0 Paroxysmal atrial fibrillation; Z20.822 Contact with and (suspected) exposure to COVID-19; I08.1 Rheumatic disorders of both mitral and tricuspid valves; I25.10 Atherosclerotic heart disease of native coronary artery without angina pectoris; E78.5 Hyperlipidemia, unspecified; E03.9 Hypothyroidism, unspecified; G47.33 Obstructive sleep apnea (adult) (pediatric); I25.2 Old myocardial infarction; F32.9 Major depressive disorder, single episode, unspecified; R32 Unspecified urinary incontinence; Z68.36 Body mass index [BMI] 36.0-36.9, adult; F17.210 Nicotine dependence, cigarettes, uncomplicated; Z99.81 Dependence on supplemental oxygen; Z79.01 Long term (current) use of anticoagulants; Z79.82 Long term (current) use of aspirin; Z79.899 Other long term (current) drug therapy; Z95.0 Presence of cardiac pacemaker; Z90.12 Acquired absence of left breast and nipple; Z85.3 Personal history of malignant neoplasm of breast; Z86.14 Personal history of Methicillin resistant Staphylococcus aureus infection; Z90.49 Acquired absence of other specified parts of digestive tract; Z87.19 Personal history of other diseases of the digestive system; Z86.73 Personal history of transient ischemic attack (TIA), and cerebral infarction without residual deficits; Z98.890 Other specified postprocedural states; Z71.3 Dietary counseling and surveillance
CPT/HCPCS: 71045; 71275; 80048; 80053; 81003; 82728; 83615; 83735; 83880; 84145; 84484; 85025; 85027; 85379; 85652; 86140; 87040; 87635; 93306; 94640; 94760; 99285

== ENCOUNTER 2023-06-22 18:31 | Observation (INO) | payer MEDICARE ==
[2023-06-22 19:34] LABS: ALT 26 U/L (4-34); AST 15 U/L (14-36); African American GFR (CKD) 71 (>60 ml/min/1.73 sqM); Albumin 3.3 g/dL (3.5-5.0); Alkaline Phosphatase 84 U/L (38-126); Anion Gap 8 mmol/L; Blood Urea Nitrogen 26 mg/dL (7-17); Calcium 8.5 mg/dL (8.4-10.2); Carbon Dioxide 24 mmol/L (22-30); Chloride 106 mmol/L (98-107); Glucose 145 mg/dL (74-99); Non-African American GFR(CKD) 62 (>60 ml/min/1.73 sqM); Potassium 5.2 mmol/L (3.5-5.1); Sodium 138 mmol/L (137-145); Total Bilirubin 0.4 mg/dL (0.2-1.3); Total Protein 5.9 g/dL (6.3-8.2)
[2023-06-22 19:44] LABS: Basophils % (A) 1 %; Eosinophils # (A) 0.2 k/uL (0-0.7); Eosinophils % (A) 3 %; HCT 34.9 % (34.0-46.0); HGB 10.3 gm/dL (11.4-16.0); Hypochromasia Slight; Lymphocytes # (A) 1.3 k/uL (1.0-4.8); Lymphocytes % (A) 17 %; MCH 25.4 pg (25.0-35.0); MCHC 29.6 g/dL (31.0-37.0); MCV 85.7 fL (80.0-100.0); Mean Platelet Volume 9.2; Monocytes # (A) 0.4 k/uL (0-1.0); Monocytes % (A) 5 %; Neutrophils # (A) 5.7 k/uL (1.3-7.7); Neutrophils % (A) 73 %; Platelet Count 262 k/uL (150-450); RBC 4.08 m/uL (3.80-5.40); RDW 13.9 % (11.5-15.5); WBC 7.8 k/uL (3.8-10.6)
[2023-06-22 20:46] LABS: INR 2.5 (<1.2); Partial Thromboplastin Time 34.8 sec (22.0-30.0); Prothrombin Time 24.8 sec (9.0-12.0)
[2023-06-22] MEDS ORDERED: NALOXONE 0.4 MG/ML 1 ML VIAL IV PRN (20:50)
--- NOTE | 2023-06-22 20:50 | ED ---
Chest Pain HPI - General Chief Complaint: Chest Pain Stated Complaint: elevated trip-transfer Time Seen by Provider: 06/22/23 18:37 Source: patient Mode of arrival: ambulatory Limitations: no limitations - History of Present Illness Initial Comments: 72-year-old female past medical history of A. fib, hypertension, COPD who presents to the emergency department as a transfer from [facility]. She was having chest pressure this morning and went into their facility. She was found to be in A. fib with RVR. She was given 50 mg of Lopressor and heart rate did improve. They dot a high sensitivity troponin and it was found to be elevated there for the patient was transferred to our facility for further evaluation. She arrives and is in a paced rhythm. She denies current symptoms. She denies any shortness of breath. No fevers chills or cough. She denies any abdominal pain. She does take digoxin and Toprol for rate control. She is also on Coumadin which was found to be therapeutic. Transferring facility gave her an aspirin and transferred her here for further care. Her estate planning attorney is in bad ax. No other alleviating, precipitating or modifying factors - Related Data Home Medications Medication Instructions Recorded Confirmed Losartan Potassium [Cozaar] 100 mg PO DAILY 03/27/19 06/22/23 Aspirin EC [Ecotrin Low Dose] 81 mg PO DAILY 04/01/21 06/22/23 Budesonide [Pulmicort] 0.5 mg INHALATION RT-BID 06/22/23 06/22/23 Budesonide/Formoterol Fumarate 2 puff INHALATION RT-BID 06/22/23 06/22/23 [Symbicort 160-4.5 Mcg Inhaler] Digoxin 250 mcg PO DAILY 06/22/23 06/22/23 Insulin Glargine,Hum.rec.anlog 25 units SQ DAILY 06/22/23 06/22/23 [Lantus Solostar Pen] Insulin Glargine,Hum.rec.anlog 44 units SQ HS 06/22/23 06/22/23 [Lantus Solostar Pen] Isosorbide Mononitrate ER [Imdur] 30 mg PO DAILY 06/22/23 06/22/23 Levothyroxine Sodium [Synthroid] 75 mcg PO DAILY 06/22/23 06/22/23 Metoprolol Succinate (ER) [Toprol 25 mg PO DAILY 06/22/23 06/22/23 Xl] Montelukast Sodium 10 mg PO HS 06/22/23 06/22/23 Omeprazole [PriLOSEC] 20 mg PO DAILY 06/22/23 06/22/23 Rosuvastatin [Crestor] 10 mg PO DAILY 06/22/23 06/22/23 Warfarin Sodium [Jantoven] 1 mg PO MOWEFR 06/22/23 06/22/23 Warfarin Sodium [Jantoven] 2 mg PO SUTUTHSA 06/22/23 06/22/23 glipiZIDE [glipiZIDE ER] 5 mg PO AC-BRKFST 06/22/23 06/22/23 hydroCHLOROthiazide 12.5 mg PO DAILY 06/22/23 06/22/23 metFORMIN HCL [Glucophage] 1,000 mg PO BID 06/22/23 06/22/23 Allergies Allergy/AdvReac Type Severity Reaction Status Date / Time No Known Allergies Allergy Verified 06/22/23 20:55 Review of Systems ROS Statement: Those systems with pertinent positive or pertinent negative responses have been documented in the HPI. ROS Other: All systems not noted in ROS Statement are negative. Past Medical History Past Medical History: Cancer, COPD, Hyperlipidemia, Hypertension, Myocardial Infarction (OR), Thyroid Disorder Additional Past Medical History / Comment(s): LOW THYROID, CPAP HS, Oct 2020-OR, 2020 Mild stroke (per family), OCT 2020 PACER PLACED, BREAST CANCER, STAPH INFECTION OF LOWER SPINE, CURRENT SMOKER Last Myocardial Infarction Date:: OCTOBER 2020 History of Any Multi-Drug Resistant Organisms: None Reported Past Surgical History: Cholecystectomy, Pacemaker Additional Past Surgical History / Comment(s): MASTECTOMY LEFT SIDE pacemaker oct 2020, I & D OF LOWER SPINE Past Anesthesia/Blood Transfusion Reactions: No Reported Reaction Type of Cardiac Device: Unknown Device Placement Date:: OCTOBER 2020 Past Psychological History: Depression Smoking Status: Current every day smoker, Heavy tobacco smoker Past Alcohol Use History: None Reported Past Drug Use History: None Reported General Exam Limitations: no limitations General appearance: alert, in no apparent distress Head exam: Present: atraumatic, normocephalic, normal inspection Eye exam: Present: normal appearance, PERRL, EOMI. Absent: scleral icterus, conjunctival injection, periorbital swelling ENT exam: Present: normal exam, mucous membranes moist Neck exam: Present: normal inspection. Absent: tenderness, meningismus, lymphadenopathy Respiratory exam: Present: normal lung sounds bilaterally. Absent: respiratory distress, wheezes, rales, rhonchi, stridor Cardiovascular Exam: Present: regular rate, normal rhythm, normal heart sounds. Absent: systolic murmur, diastolic murmur, rubs, gallop, clicks GI/Abdominal exam: Present: soft, normal bowel sounds. Absent: distended, tenderness, guarding, rebound, rigid Extremities exam: Present: normal inspection, full ROM, normal capillary refill. Absent: tenderness, pedal edema, joint swelling, calf tenderness Back exam: Present: normal inspection Neurological exam: Present: alert, oriented X3, CN II-XII intact Psychiatric exam: Present: normal affect, normal mood Skin exam: Present: warm, dry, intact, normal color. Absent: rash Course Vital Signs 06/22/23 06/22/23 18:41 19:51 Temperature 97.9 F Pulse Rate 67 69 Respiratory 20 16 Rate Blood Pressure 125/60 127/59 O2 Sat by Pulse 92 L 93 L Oximetry Chest Pain MDM - MDM Was pt. sent in by a medical professional or institution (, PA, GAS SPECIALIST, urgent care, hospital, or assisted...) When possible be specific @ -[facility] Did you speak to anyone other than the patient for history (EMS, parent, family, police, friend...)? What history was obtained from this source @ -Transferring ER physician from [facility] Did you review nursing and triage notes (agree or disagree)? Why? @ -I reviewed and agree with nursing and triage notes Were old charts reviewed (outside hosp., previous admission, EMS record, old EKG, old radiological studies, urgent care reports/EKG's, assisted records)? Report findings @ -No old charts were reviewed Differential Diagnosis (chest pain, altered mental status, abdominal pain women, abdominal pain men, vaginal bleeding, weakness, fever, dyspnea, syncope, headache, dizziness, GI bleed, back pain, seizure, CVA, palpatations, mental health, musculoskeletal)? @ -Differential Chest Pain: Stable Angina, Unstable Angina, STEMI, NSTEMI Aortic Dissection, Pneumothorax, Musculoskeletal, Esophageal Spasm GERD, Cholecystitis, Pancreatitis, Zoster, this is not meant to be an all-inclusive list. EKG interpreted by me (3pts min.). @ -Yes and demonstrates electronic atrial pacemaker with a rate of 71. CT interval 131. QRS 149. QTC of 392. Pacemaker captures appropriately. No acute ST segment elevations. X-rays interpreted by me (1pt min.). @ -None done CT interpreted by me (1pt min.). @ -None done U/S interpreted by me (1pt. min.). @ -None done What testing was considered but not performed or refused? (CT, X-rays, U/S, labs)? Why? @ -Chest x-ray however patient already had one at transferring facility What meds were considered but not given or refused? Why? @ -None Did you discuss the management of the patient with other professionals (professionals i.e. , PA, GAS SPECIALIST, lab, RT, psych nurse, social media editor, dry end tester, teacher, loans officer, medical case worker)? Give summary @ -Spoke with Dr. Farley who will admit the patient Was smoking cessation discussed for >3mins.? @ -No Was critical care preformed (if so, how long)? @ -No Were there social determinants of health that impacted care today? How? (Homelessness, low income, unemployed, alcoholism, drug addiction, transportation, low edu. Level, literacy, decrease access to med. care, residential, rehab)? @ -No Was there de-escalation of care discussed even if they declined (Discuss DNR or withdrawal of care, Hospice)? DNR status @ -No What co-morbidities impacted this encounter? (DM, HTN, Smoking, COPD, CAD, Cancer, CVA, ARF, Chemo, Hep., AIDS, mental health diagnosis, sleep apnea, morbid obesity)? @ -COPD, A. fib Was patient admitted / discharged? Hospital course, mention meds given and route, prescriptions, significant lab abnormalities, going to OR and other pertinent info. @ -Arrival patient is placed in room 10. Thorough history and physical exam was performed. Repeat troponin level was ordered and is negative. Patient reyna ins pain-free. Patient will be admitted in order to trend her troponins. She'll be assessed by cardiology with possibility of needing medication adjustments to suppress A. fib. Spoke with Dr. Gutiérrez who agreed to admit the patient Undiagnosed new problem with uncertain prognosis? @ -No Drug Therapy requiring intensive monitoring for toxicity (Heparin, Nitro, Insulin, Cardizem)? @ -No Were any procedures done? @ -No Diagnosis/symptom? @ -Acute chest pain, A. fib with RVR Acute, or Chronic, or Acute on Chronic? @ -Acute Uncomplicated (without systemic symptoms) or Complicated (systemic symptoms)? @ -Complicated Side effects of treatment? @ -No Exacerbation, Progression, or Severe Exacerbation? @ -No Poses a threat to life or bodily function? How? (Chest pain, USA, OR, pneumonia, PE, COPD, DKA, ARF, appy, cholecystitis, CVA, Diverticulitis, Homicidal, Suicidal, threat to staff... and all critical care pts) @ -Yes patient presented with rapid heart rate Disposition Clinical Impression: Chest pain Disposition: ADMITTED IP TO THIS HOSP Condition: Stable Is patient prescribed a controlled substance at d/c from ED?: No Time of Disposition: 20:50 Decision to Admit Reason: Admit from EC Decision Date: 06/22/23 Decision Time: 20:50
[2023-06-22] MEDS ORDERED: WARFARIN 2 MG TAB PO STA (22:14)
[2023-06-22] MEDS ORDERED: metFORMIN 500 MG TAB PO SCH (22:15)
[2023-06-22] MEDS: MONTELUKAST 10 MG TAB PO SCH (22:58)
[2023-06-22] MEDS: ATORVASTATIN 20 MG TAB PO SCH (22:59)
[2023-06-22 23:02] LABS: Glucose,Whole Blood 160 mg/dL (70-110)
[2023-06-22] MEDS: INSULIN DETEMIR (LEVEMIR) 100 UNIT/ML SYR SQ SCH (23:07)
[2023-06-23] MEDS ORDERED: DEXTROSE 50% SYRINGE 50 ML IVP PRN ×2 (04:30)
--- NOTE | 2023-06-23 04:39 | P.HPIM ---
History of Present Illness H&P Date: 06/22/23 Chief Complaint: Chest pain 72-year-old female with complex past medical history She was transferred from [facility] to our facility for cardiac workup she claims to be at her baseline status of health when suddenly while watching TV she experienced chest pressure she described it as an elephant sitting on her chest was severe 10 out of 10 in severity associated with heavy breathing and profuse sweating she immediately notified EMS and was transferred to [facility]. She reports history of diabetes in coronary artery disease and stroke. She doesn't take aspirin and statin at home however denies any recent episodes of similar chest pain. Upon arrival to [facility] she was found to be in A. fib with RVR she was given aspirin and a dose of Lopressor 50 mg which helped with her heart rate however her high-sensitivity troponin came back positive for which she was sent to our facility for cardiology evaluation. Upon arrival they shouldn't denies any chest pain her heart rate was paced rhythm and controlled denies any chest pain or trouble breathing denies any fevers or chills denies any sick contact. Denies any coughing denies any abdominal pain nausea vomiting changes in bowel or urinary habits denies any GI bleeding denies recent travel her hospital stay denies any history of blood clots Patient does take Coumadin for the with history of A. fib review of systems Pertinent positives as noted in HPI. All other systems were reviewed and are negative on exam Constitutional: No acute distress, conversant, pleasant Eyes: Anicteric sclerae, moist conjunctiva, Pupils equal round reactive to light ENMT: NC/AT Oropharynx clear, no erythema, or exudates Neck: Supple, no masses, or JVD No carotid bruits No thyromegaly Lungs: Clear to auscultation Clear to percussion Normal respiratory effort, no accessory muscle use Cardiovascular: Heart regular in rate and rhythm, No murmurs, gallops, or rubs No peripheral edema Abdominal: Soft Nontender, no guarding, rebound or rigidity Abdomen moving with respiration Normoactive bowel sounds No hepatomegaly, No splenomegaly No palpable mass No abdominal wall hernia noted Skin: Normal temperature, tone, texture, turgor No induration No subcutaneous nodules No rash, lesions No ulcers Extremities: No digital cyanosis No clubbing Pedal pulses intact and symmetrical Radial pulses intact and symmetrical No calf tenderness Psychiatric: Alert and oriented to person, place and time Appropriate affect fair judgement Neuro Muscles Strength 5/5 in all 4 extremities Sensation to light touch grossly present throughout Cranial nerves II-XII grossly intact Lymphatics: no palpable cervical or supraclavicular lymph nodes Past Medical History Past Medical History: Cancer, COPD, Hyperlipidemia, Hypertension, Myocardial Infarction ([place]), Thyroid Disorder Additional Past Medical History / Comment(s): LOW THYROID, CPAP HS, Oct 2020-[place], 2020 Mild stroke (per family), OCT 2020 PACER PLACED, BREAST CANCER, STAPH INFECTION OF LOWER SPINE, CURRENT SMOKER Last Myocardial Infarction Date:: OCTOBER 2020 History of Any Multi-Drug Resistant Organisms: None Reported Past Surgical History: Cholecystectomy, Pacemaker Additional Past Surgical History / Comment(s): MASTECTOMY LEFT SIDE pacemaker oct 2020, I & D OF LOWER SPINE Past Anesthesia/Blood Transfusion Reactions: No Reported Reaction Type of Cardiac Device: Unknown Device Placement Date:: OCTOBER 2020 Past Psychological History: Depression Smoking Status: Current every day smoker, Heavy tobacco smoker Past Alcohol Use History: None Reported Past Drug Use History: None Reported Medications and Allergies Home Medications Medication Instructions Recorded Confirmed Type Losartan Potassium [Cozaar] 100 mg PO DAILY 03/27/19 06/22/23 History Aspirin EC [Ecotrin Low Dose] 81 mg PO DAILY 04/01/21 06/22/23 History Budesonide [Pulmicort] 0.5 mg INHALATION RT-BID 06/22/23 06/22/23 History Budesonide/Formoterol Fumarate 2 puff INHALATION RT-BID 06/22/23 06/22/23 History [Symbicort 160-4.5 Mcg Inhaler] Digoxin 250 mcg PO DAILY 06/22/23 06/22/23 History Insulin Glargine,Hum.rec.anlog 25 units SQ DAILY 06/22/23 06/22/23 History [Lantus Solostar Pen] Insulin Glargine,Hum.rec.anlog 44 units SQ HS 06/22/23 06/22/23 History [Lantus Solostar Pen] Isosorbide Mononitrate ER [Imdur] 30 mg PO DAILY 06/22/23 06/22/23 History Levothyroxine Sodium [Synthroid] 75 mcg PO DAILY 06/22/23 06/22/23 History Metoprolol Succinate (ER) [Toprol 25 mg PO DAILY 06/22/23 06/22/23 History Xl] Montelukast Sodium 10 mg PO HS 06/22/23 06/22/23 History Omeprazole [PriLOSEC] 20 mg PO DAILY 06/22/23 06/22/23 History Rosuvastatin [Crestor] 10 mg PO DAILY 06/22/23 06/22/23 History Warfarin Sodium [Jantoven] 1 mg PO MOWEFR 06/22/23 06/22/23 History Warfarin Sodium [Jantoven] 2 mg PO SUTUTHSA 06/22/23 06/22/23 History glipiZIDE [glipiZIDE ER] 5 mg PO AC-BRKFST 06/22/23 06/22/23 History hydroCHLOROthiazide 12.5 mg PO DAILY 06/22/23 06/22/23 History metFORMIN HCL [Glucophage] 1,000 mg PO BID 06/22/23 06/22/23 History Allergies Allergy/AdvReac Type Severity Reaction Status Date / Time No Known Allergies Allergy Verified 06/22/23 20:55 Physical Exam Vitals: Vital Signs Temp Pulse Pulse Resp BP BP Pulse Ox 06/23/23 02:51 98.4 F 69 15 144/75 06/22/23 23:31 98.0 F 69 15 158/75 94 L 06/22/23 22:16 68 20 130/62 92 L 06/22/23 19:51 69 16 127/59 93 L 06/22/23 18:41 97.9 F 67 20 125/60 92 L Intake and Output 06/22/23 06/22/23 06/23/23 14:59 22:59 06:59 Other: # Bowel Movements 0 Weight 104.78 kg Results CBC & Chem 7: 06/22/23 18:43 06/22/23 18:43 Labs: Abnormal Lab Results - Last 24 Hours (Table) 06/22/23 06/22/23 06/22/23 Range/Units 18:43 18:43 18:43 Hgb 10.3 L (11.4-16.0) gm/dL MCHC 29.6 L (31.0-37.0) g/dL PT 24.8 H (9.0-12.0) sec INR 2.5 H (<1.2) APTT 34.8 H (22.0-30.0) sec Potassium 5.2 H (3.5-5.1) mmol/L BUN 26 H (7-17) mg/dL Glucose 145 H (74-99) mg/dL POC Glucose (mg/dL) (70-110) mg/dL Troponin I (0.000-0.034) ng/mL Total Protein 5.9 L (6.3-8.2) g/dL Albumin 3.3 L (3.5-5.0) g/dL 06/22/23 06/22/23 Range/Units 21:37 23:01 Hgb (11.4-16.0) gm/dL MCHC (31.0-37.0) g/dL PT (9.0-12.0) sec INR (<1.2) APTT (22.0-30.0) sec Potassium (3.5-5.1) mmol/L BUN (7-17) mg/dL Glucose (74-99) mg/dL POC Glucose (mg/dL) 160 H (70-110) mg/dL Troponin I 0.035 H* (0.000-0.034) ng/mL Total Protein (6.3-8.2) g/dL Albumin (3.5-5.0) g/dL Thrombosis Risk Factor Assmnt - Choose All That Apply Any of the Below Risk Factors Present?: Yes Each Factor Represents 1 point: Abnormal pulmonary function (COPD) Other Risk Factors: Yes Each Risk Factor Represents 2 Points: Age 61-74 years Other congenital or acquired thrombophilia - If yes, enter type in comment: No Thrombosis Risk Factor Assessment Total Risk Factor Score: 3 Thrombosis Risk Factor Assessment Level: Moderate Risk Assessment and Plan Assessment: 72-year-old female coronary artery disease diabetes mellitus and stroke coming in for chest pain with positive troponins and A. fib with RVR I discussed the case with the ED doctor and accepted the admission for chest pain to rule out acute coronary syndrome with anticipated length of stay less than 2 midnights atypical chest pain rule out ACS EKG no acute changes, paced rhythm CXR no acute pathology trops slightly elevated library monitor monitor vital signs ASA, statin cardiology consult A1c, lipid panel , TSH pain control Continue Imdur A. fib with RVR resolved Currently paced rhythm Continue with Coumadin dosing by pharmacy Continue with digoxin and metoprolol Diabetes mellitus continue with long-acting insulin and insulin sliding scale COPD currently compensated Continue with inhalers Anemia Denies GI bleeding Hemoglobin 10.3 Continue to monitor Blood work unremarkable showing white count 7.8 INR 2.5 BUN 26 creatinine 0.9 02/18/1940 potassium 5.2 Full code DVT prophylaxis on Coumadin therapeutic INR for A. fib
[2023-06-23] MEDS: LEVOTHYROXINE 75 MCG TAB PO SCH (05:19)
[2023-06-23] MEDS: PANTOPRAZOLE 40 MG TABLET PO SCH (05:19)
[2023-06-23 05:38] LABS: Glucose,Whole Blood 75 mg/dL (70-110)
[2023-06-23 05:38] LABS: Glucose,Whole Blood 68 mg/dL (70-110)
[2023-06-23] MEDS: INSULIN DETEMIR (LEVEMIR) 100 UNIT/ML SYR SQ SCH ×3 (05:39→21:44)
[2023-06-23] MEDS: INSULIN ASPART (NovoLOG) 100 UNIT/ML VIAL SQ SCH ×4 (05:39→21:44)
[2023-06-23 06:32] LABS: INR 2.4 (<1.2)
[2023-06-23] MEDS ORDERED: BUDESONIDE 0.5 MG/2 ML NEBU INHALATION SCH (08:00)
[2023-06-23 08:38] LABS: Basophils # (A) 0.03 X 10*3/uL (0.00-0.10); Basophils % (A) 0.4 %; Eosinophils # (A) 0.16 X 10*3/uL (0.04-0.35); Eosinophils % (A) 2.1 %; HCT 36.4 % (37.2-46.3); Lymphocytes # (A) 2.22 X 10*3/uL (0.90-5.00); MCH 26.2 pg (27.0-32.0); MCHC 30.2 d/dL (32.0-37.0); MCV 86.7 FL (80.0-97.0); Mean Platelet Volume 10.6 FL (9.5-12.2); Monocytes # (A) 0.73 X 10*3/uL (0.20-1.00); Monocytes % (A) 9.5 %; NRBC Per 100 WBC 0 X 10*3/uL (0.00-0.01); Neutrophils # (A) 4.48 X 10*3/uL (1.80-7.70); Neutrophils % (A) 58.5 %; Platelet Count 297 X 10*3/uL (140-440); RDW 13.4 % (11.5-14.5); WBC 7.66 X 10*3/uL (4.50-10.00)
[2023-06-23 08:59] LABS: BUN/Creat Ratio 27.33 Ratio (12.00-20.00); Blood Urea Nitrogen 24.6 mg/dL (9.0-27.0); Calcium 8.9 mg/dL (8.7-10.3); Carbon Dioxide 26.2 mmol/L (21.6-31.8); Chloride 105 mmol/L (96-109); Glucose 66 mg/dL (70-110); Potassium 4.5 mmol/L (3.5-5.5); Sodium 142 mmol/L (135-145)
[2023-06-23] MEDS: ISOSORBIDE MONONITRATE ER 30 MG TAB.ER.24H PO SCH (09:06)
[2023-06-23] MEDS: ATORVASTATIN 20 MG TAB PO SCH (09:06)
[2023-06-23] MEDS: LOSARTAN 50 MG TAB PO SCH (09:06)
[2023-06-23] MEDS: hydroCHLOROthiazide 12.5 MG CAP PO SCH (09:07)
[2023-06-23] MEDS: METOPROLOL SUCCINATE (ER) 25 MG TAB.ER.24H PO SCH (09:07)
[2023-06-23] MEDS: DIGOXIN 250 MCG TAB PO SCH (09:07)
[2023-06-23] MEDS: ASPIRIN 81 MG PO SCH (09:07)
[2023-06-23] MEDS ORDERED: PHYTONADIONE 5 MG in SODIUM CHLORIDE 0.9% 50 ML IVPB STA (09:18)
[2023-06-23] MEDS ORDERED: ASPIRIN 325 MG TAB PO STA (09:19)
[2023-06-23] MEDS ORDERED: ALPRAZolam 0.25 MG TAB PO PRN (09:19)
[2023-06-23] MEDS ORDERED: NITROGLYCERIN SL TABS 0.4 MG TAB SUBLINGUAL PRN (09:19)
[2023-06-23] MEDS ORDERED: ALPRAZolam 0.5 MG TAB PO PRN (09:19)
[2023-06-23] MEDS ORDERED: ATORVASTATIN 80 MG TAB PO STA (09:19)
[2023-06-23] MEDS ORDERED: ASPIRIN 325 MG TAB PO ONE (09:30)
--- NOTE | 2023-06-23 09:33 | P.CRDCN ---
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 She has a past medical history of paroxysmal atrial fibrillation on anticoagulation with Coumadin, dual chamber pacemaker, history of myocardial infarction according to patient diabetes mellitus type 2 insulin requiring, COPD, TIA, obstructive sleep apnea, history of breast cancer, remote history of tobacco use and dependence. We have been asked to evaluate the patient for acute chest pain, A. fib with RVR. Patient is a very poor historian. She is able to see relate that she had heaviness in her chest that felt like an elephant. Patient was transferred from [facility] where she was found to be in A. fib with RVR. She was given Lopressor 50 mg with improvement of her heart rate. Her troponin was elevated at [place] and Coumadin was therapeutic. Patient denies having a recent stress test. Patient no longer smokes. EKG atrial paced and ventricular paced rhythm at 71 bpm WBC 7.6, hemoglobin 11, platelet count 297. INR 2.4. Electrolytes are normal. Creatinine 0.9. Troponin 0.026, 0.035 and 0.031. Home cardiac medications: Aspirin 81 mg daily, digoxin 250 g daily, hydrochlorothiazide 0.5 mg daily, Imdur or 30 mg daily, levothyroxine 75 g daily, losartan 100 mg daily, Toprol-XL 25 mg daily, Crestor 10 mg daily, Coumadin alternating between 1 mg and 2 mg. Echocardiogram 03/2021 EF 40-45% and mild aortic stenosis Review Of Systems: At the time of my evaluation: Constitutional: No fever, no chills. No weakness, fatigue or lethargy. EENT: No headache. No dizziness. Lungs: No shortness of breath, cough, no sputum production. No wheezing. Cardiovascular: No chest pain, no lower extremity edema. No palpitations. No paroxysmal nocturnal dyspnea. No orthopnea. No lightheadedness or dizziness. No syncopal episodes. Abdominal: No abdominal pain. No nausea, vomiting. No diarrhea. No constipation. No bloody or tarry stools. Genitourinary: No dysuria.. No urinary retention. Musculoskeletal: No myalgias. No muscle weakness, no frequent falls. No back pain. No neck pain. Integumentary: No wounds. No rash. No unusual bruising. Neurologic: No aphasia. No facial droop. No change in mentation. No head injury. No headache. Physical examination: Gen: This is a 72-year-old obese female. She is resting bed appears to be comfortable. VS: reviewed. Blood pressure 144/75, heart rate 69, pulse ox 94% on room air. HEENT: Head is atraumatic, normocephalic. Pupils equal, round. Sclerae is anicteric. NECK: Supple. No JVD. LUNGS: Clear to auscultation. No wheezes or rhonchi. No intercostal retraction s. HEART: Regular rate and rhythm. Systolic murmur. ABDOMEN: Soft No tenderness. EXTREMITIES: No pedal edema. No calf tenderness. NEUROLOGICAL: Patient is awake, alert. Assessment: Chest pain with mild troponin elevation Acute coronary syndrome has been ruled out Paroxysmal atrial fibrillation Dual chamber pacemaker Aortic stenosis History of [place] Diabetes mellitus type 2 COPD History of TIA Remote history of tobacco use Plan: Resume patient's home cardiac medications except for Coumadin Discontinue Coumadin and give patient vitamin K 1 dose today Schedule patient for cardiac catheterization tomorrow with Dr. Syd Lockhart Obtain 2-D echocardiogram and Doppler study to assess cardiac structure and function Further recommendations to follow based upon clinical course Thank you kindly for this consultation. Nurse practitioner note has been reviewed, I agree with documented findings and plan of care. Patient was seen and examined. Past Medical History Past Medical History: Cancer, COPD, Hyperlipidemia, Hypertension, Myocardial Infarction ([place]), Thyroid Disorder Additional Past Medical History / Comment(s): LOW THYROID, CPAP HS, Oct 2020-[place], 2020 Mild stroke (per family), OCT 2020 PACER PLACED, BREAST CANCER, STAPH INFECTION OF LOWER SPINE, CURRENT SMOKER Last Myocardial Infarction Date:: OCTOBER 2020 History of Any Multi-Drug Resistant Organisms: None Reported Past Surgical History: Cholecystectomy, Pacemaker Additional Past Surgical History / Comment(s): MASTECTOMY LEFT SIDE pacemaker oct 2020, I & D OF LOWER SPINE Past Anesthesia/Blood Transfusion Reactions: No Reported Reaction Type of Cardiac Device: Unknown Device Placement Date:: OCTOBER 2020 Past Psychological History: Depression Smoking Status: Current every day smoker, Heavy tobacco smoker Past Alcohol Use History: None Reported Past Drug Use History: None Reported Medications and Allergies Home Medications Medication Instructions Recorded Confirmed Type Losartan Potassium [Cozaar] 100 mg PO DAILY 03/27/19 06/22/23 History Aspirin EC [Ecotrin Low Dose] 81 mg PO DAILY 04/01/21 06/22/23 History Budesonide [Pulmicort] 0.5 mg INHALATION RT-BID 06/22/23 06/22/23 History Budesonide/Formoterol Fumarate 2 puff INHALATION RT-BID 06/22/23 06/22/23 History [Symbicort 160-4.5 Mcg Inhaler] Digoxin 250 mcg PO DAILY 06/22/23 06/22/23 History Insulin Glargine,Hum.rec.anlog 25 units SQ DAILY 06/22/23 06/22/23 History [Lantus Solostar Pen] Insulin Glargine,Hum.rec.anlog 44 units SQ HS 06/22/23 06/22/23 History [Lantus Solostar Pen] Isosorbide Mononitrate ER [Imdur] 30 mg PO DAILY 06/22/23 06/22/23 History Levothyroxine Sodium [Synthroid] 75 mcg PO DAILY 06/22/23 06/22/23 History Metoprolol Succinate (ER) [Toprol 25 mg PO DAILY 06/22/23 06/22/23 History Xl] Montelukast Sodium 10 mg PO HS 06/22/23 06/22/23 History Omeprazole [PriLOSEC] 20 mg PO DAILY 06/22/23 06/22/23 History Rosuvastatin [Crestor] 10 mg PO DAILY 06/22/23 06/22/23 History Warfarin Sodium [Jantoven] 1 mg PO MOWEFR 06/22/23 06/22/23 History Warfarin Sodium [Jantoven] 2 mg PO SUTUTHSA 06/22/23 06/22/23 History glipiZIDE [glipiZIDE ER] 5 mg PO AC-BRKFST 06/22/23 06/22/23 History hydroCHLOROthiazide 12.5 mg PO DAILY 06/22/23 06/22/23 History metFORMIN HCL [Glucophage] 1,000 mg PO BID 06/22/23 06/22/23 History Allergies Allergy/AdvReac Type Severity Reaction Status Date / Time No Known Allergies Allergy Verified 06/22/23 20:55 Physical Exam Vitals: Vital Signs Temp Pulse Pulse Resp BP BP Pulse Ox 06/23/23 02:51 98.4 F 69 15 144/75 06/22/23 23:31 98.0 F 69 15 158/75 94 L 06/22/23 22:16 68 20 130/62 92 L 06/22/23 19:51 69 16 127/59 93 L 06/22/23 18:41 97.9 F 67 20 125/60 92 L Intake and Output 06/22/23 06/23/23 06/23/23 22:59 06:59 14:59 Other: # Voids 1 # Bowel Movements 0 Weight 104.78 kg Results 06/23/23 05:38 06/23/23 05:38 Cardiac Enzymes 06/22/23 06/22/23 06/22/23 Range/Units 18:43 18:43 21:37 AST 15 (14-36) U/L Troponin I 0.026 0.035 H* (0.000-0.034) ng/mL 06/22/23 Range/Units 23:50 AST (14-36) U/L Troponin I 0.031 (0.000-0.034) ng/mL Coagulation 06/22/23 06/23/23 Range/Units 18:43 05:38 PT 24.8 H 23.0 H (9.0-12.0) sec APTT 34.8 H (22.0-30.0) sec CBC 06/22/23 Range/Units 18:43 WBC 7.8 (3.8-10.6) k/uL RBC 4.08 (3.80-5.40) m/uL Hgb 10.3 L (11.4-16.0) gm/dL Hct 34.9 (34.0-46.0) % Plt Count 262 (150-450) k/uL Comprehensive Metabolic Panel 06/22/23 Range/Units 18:43 Sodium 138 (137-145) mmol/L Potassium 5.2 H (3.5-5.1) mmol/L Chloride 106 (98-107) mmol/L Carbon Dioxide 24 (22-30) mmol/L BUN 26 H (7-17) mg/dL Creatinine 0.92 (0.52-1.04) mg/dL Glucose 145 H (74-99) mg/dL Calcium 8.5 (8.4-10.2) mg/dL AST 15 (14-36) U/L ALT 26 (4-34) U/L Alkaline Phosphatase 84 (38-126) U/L Total Protein 5.9 L (6.3-8.2) g/dL Albumin 3.3 L (3.5-5.0) g/dL Current Medications Generic Name Dose Route Start Last Admin Trade Name Freq PRN Reason Stop Dose Admin Aspirin 81 mg 06/23/23 09:00 Aspirin 81 Mg PO DAILY [facility] Atorvastatin Calcium 20 mg 06/22/23 22:15 06/22/23 22:59 Atorvastatin 20 Mg Tab PO 20 mg DAILY [facility] Administration Budesonide 0.5 mg 06/23/23 08:00 Budesonide 0.5 Mg/2 Ml Nebu INHALATION RT-BID [facility] Budesonide/Formoterol Fumarate 2 puff 06/23/23 08:00 Symbicort 160-4.5 Mcg Inhaler INHALATION RT-BID [facility] Dextrose/Water 25 ml 06/23/23 04:30 Dextrose 50% Syringe 50 Ml IVP PER PROTOCOL PRN Hypoglycemia Protocol Dextrose/Water 50 ml 06/23/23 04:30 Dextrose 50% Syringe 50 Ml IVP PER PROTOCOL PRN Hypoglycemia Protocol Digoxin 250 mcg 06/23/23 09:00 Digoxin 250 Mcg Tab PO DAILY [facility] Hydrochlorothiazide 12.5 mg 06/23/23 09:00 Hydrochlorothiazide 12.5 Mg Cap PO DAILY [facility] Insulin Aspart 0 unit 06/23/23 07:30 06/23/23 05:39 Insulin Aspart (Novolog) 100 Unit/Ml Vial SQ Not Given ACHS [facility] Protocol Insulin Detemir 44 unit 06/22/23 22:15 06/22/23 23:07 Insulin Detemir (Levemir) 100 Unit/Ml Syr SQ 44 unit HS [facility] Administration Insulin Detemir 25 unit 06/23/23 07:00 06/23/23 05:39 Insulin Detemir (Levemir) 100 Unit/Ml Syr SQ Not Given DAILY@0700 [facility] Isosorbide Mononitrate 30 mg 06/23/23 09:00 Isosorbide Mononitrate Er 30 Mg Tab.Er.24h PO DAILY [facility] Levothyroxine Sodium 75 mcg 06/23/23 06:30 06/23/23 05:19 Levothyroxine 75 Mcg Tab PO 75 mcg DAILY@0630 YULIET Administration Losartan Potassium 100 mg 06/23/23 09:00 Losartan 50 Mg Tab PO DAILY YULIET Metoprolol Succinate 25 mg 06/23/23 09:00 Metoprolol Succinate (Er) 25 Mg Tab.Er.24h PO DAILY [facility] Miscellaneous Information 0 each 06/22/23 22:18 Warfarin Per Pharmacy MISCELLANE DIRECTED PRN PER PROTOCOL Montelukast Sodium 10 mg 06/22/23 22:15 06/22/23 22:58 Montelukast 10 Mg Tab PO 10 mg HS YULIET Administration Naloxone HCl 0.2 mg 06/22/23 20:50 Naloxone 0.4 Mg/Ml 1 Ml Vial IV Q2M PRN Opioid Reversal Pantoprazole Sodium 40 mg 06/23/23 07:30 06/23/23 05:19 Pantoprazole 40 Mg Tablet PO 40 mg AC-BRKFST YULIET Administration Intake and Output 06/22/23 06/23/23 06/23/23 22:59 06:59 14:59 Other: # Voids 1 # Bowel Movements 0 Weight 104.78 kg 06/22/23 18:43 06/22/23 18:43
[2023-06-23] MEDS: SYMBICORT 160-4.5 MCG INHALER INHALATION SCH ×2 (10:03→20:53)
[2023-06-23 11:36] LABS: Glucose,Whole Blood 441 mg/dL (70-110)
--- NOTE | 2023-06-23 12:03 | CA ---
Transthoracic Echo Report Name: Mar Loredo Age: 72 Gender: F : 1950 Exam Date: 06/23/2023 10:25 Exam Location: [facility] Ht (in): 66 Wt (lb): 231 Ordering Physician: Anu Guillen Attending/Referring Phys: [id number], Wilmer Pattern Duplicator Gaby Doan [facility] Procedure CPT: Indications: LVF Cardiac Hx: Technical Quality: Fair Contrast 1: Total Dose (mL): Contrast 2: Total Dose (mL): MEASUREMENTS (Male / Female) Normal Values 2D ECHO LV Diastolic Diameter PLAX 4.8 cm 4.2 - 5.9 / 3.9 - 5.3 cm LV Systolic Diameter PLAX 3.6 cm IVS Diastolic Thickness 1.3 cm 0.6 - 1.0 / 0.6 - 0.9 cm LVPW Diastolic Thickness 1.5 cm 0.6 - 1.0 / 0.6 - 0.9 cm LV Relative Wall Thickness 0.6 LVOT Diameter 2.0 cm Ascending Aorta Diameter 3.2 cm M-MODE Aortic Root Diameter MM 2.9 cm LA Systolic Diameter MM 4.6 cm LA Ao Ratio MM 1.6 AV Cusp Separation MM 1.3 cm DOPPLER AV Peak Velocity 287.4 cm/s AV Peak Gradient 33.0 mmHg AV Mean Velocity 231.6 cm/s AV Mean Gradient 22.5 mmHg AV Velocity Time Integral 70.0 cm LVOT Peak Velocity 120.6 cm/s LVOT Peak Gradient 5.8 mmHg LVOT Velocity Time Integral 28.4 cm LVOT Stroke Volume 90.8 cm??? LVOT Stroke Volume Index 42.7 ml/m??? LVOT Cardiac Index 2940.4 cm???/min???m??? AV Area Cont Eq vti 1.3 cm??? AV Area Cont Eq pk 1.3 cm??? Mitral E Point Velocity 95.4 cm/s Mitral A Point Velocity 88.0 cm/s Mitral E to A Ratio 1.1 MV Deceleration Time 228.7 ms LV E' Lateral Velocity 4.9 cm/s Mitral E to LV E' Lateral Ratio 19.3 LV E' Septal Velocity 3.7 cm/s Mitral E to LV E' Septal Ratio 25.9 TR Peak Velocity 233.6 cm/s TR Peak Gradient 21.8 mmHg Right Atrial Pressure 8.0 mmHg Pulmonary Artery Systolic Pressu 29.8 mmHg Right Ventricular Systolic Press 29.8 mmHg FINDINGS Left Ventricle Mildly increased septal wall thickness. Moderately increased posterior wall thickness. Left ventricular cavity size normal. Low normal left ventricular systolic function with no obvious regional wall motion abnormalities. Left ventricular ejection fraction is estimated at 50-55%. Right Ventricle Mild right ventricular dilatation. Catheter/pacemaker wire in the right ventricular cavity. Right Atrium Mild right atrial dilatation. Catheter/pacemaker wire in the right atrial cavity. Left Atrium Mild left atrial dilatation. Mitral Valve Structurally normal mitral valve. Mild thickening/calcification of the posterior mitral valve leaflet. Trace mitral regurgitation. Aortic Valve Trileaflet aortic valve. Diffuse thickening of the aortic valve cusps with reduced excursion. [id number] aortic stenosis with a peak gradient of 33 mmHg and a mean gradient of 22.52 mmHg. No aortic regurgitation. Tricuspid Valve Structurally normal tricuspid valve. Trace tricuspid regurgitation. Pulmonic Valve Pulmonic valve not well visualized. Pericardium Minimal pericardial effusion (normal variant). Echo free space anterior to the right ventricle likely represents a fat pad. Aorta Normal size aortic root and proximal ascending aorta. CONCLUSIONS Normal LV systolic function Mild to moderate aortic stenosis Previewed by: Dr. Owen Lockhart MD (Electronically Signed) Final Date: 23 June 2023 12:02
--- NOTE | 2023-06-23 15:15 | P.PN ---
Subjective Progress Note Date: 06/23/23 Hospital Course: 72-year-old female with history of AR, paroxysmal atrial fibrillation on Coumadin, pacemaker, insulin-dependent diabetes, COPD, TIA, GONZÁLEZ, history of breast cancer, remote history of smoking presenting with chest pain from outside facility. Vital signs have been within normal limits at our facility. Laboratory workup showed mild normocytic anemia 10.3, INR 2.5, potassium 5.2, creatinine 0.92, troponin as high as 0.035. EKG did show patient with him. Echocardiogram showed 50-55% EF, mild to moderate aortic stenosis. Cardiology consulted. Pending cardiac cath tomorrow Subjective: Patient seen and examined at bedside. No acute events overnight. Denies any chest pain. Pertinent positives and negatives as discussed above, a complete review of systems was performed and all other systems are negative. Vitals Signs Reviewed. General: nontoxic, no distress, appears at stated age Derm: warm, dry Head: atraumatic, normocephalic, symmetric Eyes: EOMI, no lid lag, anicteric sclera Mouth: no lip lesion, mucus membranes moist Cardiovascular: S1S2 reg, no murmur Lungs: CTA bilateral, no rhonchi, no rales , no accessory muscle use Abdominal: soft, nontender to palpation, no guarding, no appreciable organomegaly Ext: no gross muscle atrophy, no edema, no contractures Neuro: CN II-XI grossly intact, no focal neuro deficits Psych: Alert, oriented, appropriate affect Data Reviewed Today: Pertinent Labs: WBC 7.66, hemoglobin 11, INR 2.4, glucose range between 66-441 Imaging: Echocardiogram shows LVEF 55%, mild to moderate stenosis Assessment and Plan: Elevated troponin atypical chest pain, unlikely to be ACS -Continue telemetry -Cardiology reviewed, pending cardiac cath tomorrow -Continue aspirin, atorvastatin A. fib with RVR resolved -Currently paced rhythm -Hold Coumadin, given vitamin K for cardiac cath tomorrow -Continue with digoxin and metoprolol Diabetes mellitus with hyperglycemia -continue with long-acting insulin and insulin sliding scale COPD currently compensated -Continue with inhalers Normocytic anemia, hemoglobin improving -Denies GI bleeding -Continue to monitor DVT ppx: Was given warfarin earlier, now on Vit K Code status: Full code Anticipated discharge place: Pending clinical course Anticipated discharge time: Pending Clinical course Objective - Vital Signs Vital signs: Vital Signs Temp 98.7 F 10/04/23 12:20 Pulse 71 06/23/23 12:20 Resp 14 06/23/23 12:20 BP 138/68 06/23/23 12:20 Pulse Ox 93 L 06/23/23 12:20 FiO2 Intake & Output 06/22/23 06/23/23 06/23/23 18:59 06:59 18:59 Intake Total 120 Balance 120 Weight 104.78 kg 104.78 kg Intake: Oral 120 Other: # Voids 1 1 # Bowel Movements 0 - Labs CBC & Chem 7: 06/23/23 05:38 06/23/23 05:38 Labs: Abnormal Lab Results - Last 24 Hours (Table) 06/22/23 06/22/23 06/22/23 Range/Units 18:43 18:43 18:43 Hgb 10.3 L (11.4-16.0) gm/dL Hct (37.2-46.3) % MCH (27.0-32.0) pg MCHC 29.6 L (31.0-37.0) g/dL PT 24.8 H (9.0-12.0) sec INR 2.5 H (<1.2) APTT 34.8 H (22.0-30.0) sec Potassium 5.2 H (3.5-5.1) mmol/L BUN 26 H (7-17) mg/dL BUN/Creatinine Ratio (12.00-20.00) Ratio Glucose 145 H (74-99) mg/dL POC Glucose (mg/dL) (70-110) mg/dL Troponin I (0.000-0.034) ng/mL Total Protein 5.9 L (6.3-8.2) g/dL Albumin 3.3 L (3.5-5.0) g/dL 06/22/23 06/22/23 06/23/23 Range/Units 21:37 23:01 05:35 Hgb (11.4-16.0) gm/dL Hct (37.2-46.3) % MCH (27.0-32.0) pg MCHC (31.0-37.0) g/dL PT (9.0-12.0) sec INR (<1.2) APTT (22.0-30.0) sec Potassium (3.5-5.1) mmol/L BUN (7-17) mg/dL BUN/Creatinine Ratio (12.00-20.00) Ratio Glucose (74-99) mg/dL POC Glucose (mg/dL) 160 H 68 L (70-110) mg/dL Troponin I 0.035 H* (0.000-0.034) ng/mL Total Protein (6.3-8.2) g/dL Albumin (3.5-5.0) g/dL 06/23/23 06/23/23 06/23/23 Range/Units 05:38 05:38 05:38 Hgb 11.0 L (11.4-16.0) gm/dL Hct 36.4 L (37.2-46.3) % MCH 26.2 L (27.0-32.0) pg MCHC 30.2 L (31.0-37.0) g/dL PT 23.0 H (9.0-12.0) sec INR 2.4 H (<1.2) APTT (22.0-30.0) sec Potassium (3.5-5.1) mmol/L BUN (7-17) mg/dL BUN/Creatinine Ratio 27.33 H (12.00-20.00) Ratio Glucose 66 L (74-99) mg/dL POC Glucose (mg/dL) (70-110) mg/dL Troponin I (0.000-0.034) ng/mL Total Protein (6.3-8.2) g/dL Albumin (3.5-5.0) g/dL 06/23/23 Range/Units 11:34 Hgb (11.4-16.0) gm/dL Hct (37.2-46.3) % MCH (27.0-32.0) pg MCHC (31.0-37.0) g/dL PT (9.0-12.0) sec INR (<1.2) APTT (22.0-30.0) sec Potassium (3.5-5.1) mmol/L BUN (7-17) mg/dL BUN/Creatinine Ratio (12.00-20.00) Ratio Glucose (74-99) mg/dL POC Glucose (mg/dL) 441 H (70-110) mg/dL Troponin I (0.000-0.034) ng/mL Total Protein (6.3-8.2) g/dL Albumin (3.5-5.0) g/dL
[2023-06-23 17:37] LABS: Glucose,Whole Blood 167 mg/dL (70-110)
[2023-06-23] MEDS ORDERED: WARFARIN 1 MG TAB PO ONE (18:00)
[2023-06-23 20:31] LABS: Glucose,Whole Blood 180 mg/dL (70-110)
[2023-06-23] MEDS: MONTELUKAST 10 MG TAB PO SCH (21:44)
[2023-06-24] MEDS ORDERED: ASPIRIN 325 MG TAB PO ONE (06:00)
[2023-06-24] MEDS ORDERED: ATORVASTATIN 80 MG TAB PO ONE (06:00)
[2023-06-24] MEDS: LEVOTHYROXINE 75 MCG TAB PO SCH (06:09)
[2023-06-24 06:11] LABS: Glucose,Whole Blood 130 mg/dL (70-110)
[2023-06-24 06:50] LABS: INR 1.3 (<1.2); Prothrombin Time 13.2 sec (9.0-12.0)
[2023-06-24] MEDS ORDERED: HEPARIN SODIUM,PORCINE (1 ML) 2,500 UNIT in SODIUM CHLORIDE 0.9% 250 ML IRRIGATION PRN (07:00)
[2023-06-24] MEDS ORDERED: HEPARIN SODIUM,PORCINE 10,000 UNIT in SODIUM CHLORIDE 0.9% 1,000 ML IRRIGATION PRN (07:00)
[2023-06-24] MEDS: ASPIRIN 81 MG PO SCH (08:00)
[2023-06-24] MEDS: DIGOXIN 250 MCG TAB PO SCH (08:09)
[2023-06-24] MEDS: ATORVASTATIN 20 MG TAB PO SCH (08:09)
[2023-06-24] MEDS: PANTOPRAZOLE 40 MG TABLET PO SCH (08:09)
[2023-06-24] MEDS: LOSARTAN 50 MG TAB PO SCH (08:09)
[2023-06-24] MEDS: METOPROLOL SUCCINATE (ER) 25 MG TAB.ER.24H PO SCH (08:09)
[2023-06-24] MEDS: hydroCHLOROthiazide 12.5 MG CAP PO SCH (08:09)
[2023-06-24 09:01] LABS: African American GFR (CKD) >90 (>60 ml/min/1.73 sqM); Anion Gap 11 mmol/L; Blood Urea Nitrogen 20 mg/dL (7-17); Calcium 9.1 mg/dL (8.4-10.2); Carbon Dioxide 27 mmol/L (22-30); Chloride 103 mmol/L (98-107); Glucose 132 mg/dL (74-99); Non-African American GFR(CKD) 81 (>60 ml/min/1.73 sqM); Potassium 4.9 mmol/L (3.5-5.1); Sodium 141 mmol/L (137-145)
[2023-06-24] MEDS: SYMBICORT 160-4.5 MCG INHALER INHALATION SCH ×2 (09:04→20:18)
--- NOTE | 2023-06-24 09:58 | P.PN ---
Subjective Progress Note Date: 06/24/23 History of present illness: This is a 72 year old female patient follows with that parts identifier out of [place]. She has a past medical history of paroxysmal atrial fibrillation on anticoagulation with Coumadin, dual chamber pacemaker, history of myocardial infarction according to patient diabetes mellitus type 2 insulin requiring, COPD, TIA, obstructive sleep apnea, history of breast cancer, remote history of tobacco use and dependence. We have been asked to evaluate the patient for acute chest pain, A. fib with RVR. Patient is a very poor historian. She is able to see relate that she had heaviness in her chest that felt like an elephant. Patient was transferred from [facility] where she was found to be in A. fib with RVR. She was given Lopressor 50 mg with improvement of her heart rate. Her troponin was elevated at [place] and Coumadin was therapeutic. Patient denies having a recent stress test. Patient no longer smokes. EKG atrial paced and ventricular paced rhythm at 71 bpm WBC 7.6, hemoglobin 11, platelet count 297. INR 2.4. Electrolytes are normal. Creatinine 0.9. Troponin 0.026, 0.035 and 0.031. Home cardiac medications: Aspirin 81 mg daily, digoxin 250 g daily, hydrochlorothiazide 0.5 mg daily, Imdur or 30 mg daily, levothyroxine 75 g daily, losartan 100 mg daily, Toprol-XL 25 mg daily, Crestor 10 mg daily, Coumadin alternating between 1 mg and 2 mg. Echocardiogram 03/2021 EF 40-45% and mild aortic stenosis 06/24 Patient received 1 dose of IV vitamin K yesterday and INR today is at 1.3. She is scheduled for cardiac catheterization with Dr. Syd Lockhart today. Echocardiogram revealed EF of 50-55%, mild to moderate aortic stenosis. Patient appears quite anxious this morning. She denies any chest pain no shortness of breath. Nursing was concern for 6 beat run of V. tach nonsustained this morning. Telemetry will be reviewed. Physical examination: Gen: This is a 72-year-old obese female. She is resting bed appears to be comfortable. VS: reviewed. Blood pressure 144/75, heart rate 69, pulse ox 94% on room air. HEENT: Head is atraumatic, normocephalic. Pupils equal, round. Sclerae is anicteric. NECK: Supple. No JVD. LUNGS: Clear to auscultation. No wheezes or rhonchi. No intercostal retractions. HEART: Regular rate and rhythm. Systolic murmur. ABDOMEN: Soft No tenderness. EXTREMITIES: No pedal edema. No calf tenderness. NEUROLOGICAL: Patient is awake, alert. Assessment: Chest pain with mild troponin elevation Acute coronary syndrome has been ruled out Paroxysmal atrial fibrillation Dual chamber pacemaker Aortic stenosis History of CA Diabetes mellitus type 2 COPD History of TIA Remote history of tobacco use Plan: Continue patient's home cardiac medications except for Coumadin Schedule patient for cardiac catheterization today with Dr. Syd Lockhart Further recommendations to follow based upon clinical course Nurse practitioner note has been reviewed, I agree with documented findings and plan of care. Patient was seen and examined. Objective - Vital Signs Vital signs: Vital Signs Temp 98.8 F 06/24/23 07:00 Pulse 82 06/24/23 07:00 Resp 20 06/24/23 07:00 BP 171/85 06/24/23 07:00 Pulse Ox 93 L 06/24/23 07:00 FiO2 Intake & Output 06/23/23 06/24/23 06/24/23 18:59 06:59 18:59 Intake Total 480 Balance 480 Intake: Oral 480 Other: Voiding Method Toilet # Voids 3 1 - Labs CBC & Chem 7: 06/23/23 05:38 06/24/23 05:48 Labs: Abnormal Lab Results - Last 24 Hours (Table) 06/23/23 06/23/23 06/23/23 Range/Units 05:38 05:38 11:34 Hgb 11.0 L (12.0-15.0) d/dL Hct 36.4 L (37.2-46.3) % MCH 26.2 L (27.0-32.0) pg MCHC 30.2 L (32.0-37.0) d/dL PT (9.0-12.0) sec INR (<1.2) BUN/Creatinine Ratio 27.33 H (12.00-20.00) Ratio Glucose 66 L (70-110) mg/dL POC Glucose (mg/dL) 441 H (70-110) mg/dL 06/23/23 06/23/23 06/24/23 Range/Units 17:35 20:30 05:48 Hgb (12.0-15.0) d/dL Hct (37.2-46.3) % MCH (27.0-32.0) pg MCHC (32.0-37.0) d/dL PT 13.2 H (9.0-12.0) sec INR 1.3 H (<1.2) BUN/Creatinine Ratio (12.00-20.00) Ratio Glucose (70-110) mg/dL POC Glucose (mg/dL) 167 H 180 H (70-110) mg/dL 06/24/23 Range/Units 06:10 Hgb (12.0-15.0) d/dL Hct (37.2-46.3) % MCH (27.0-32.0) pg MCHC (32.0-37.0) d/dL PT (9.0-12.0) sec INR (<1.2) BUN/Creatinine Ratio (12.00-20.00) Ratio Glucose (70-110) mg/dL POC Glucose (mg/dL) 130 H (70-110) mg/dL
[2023-06-24] MEDS ORDERED: IV FLUID CONTINUATION 600 ML IV ONE (10:12)
[2023-06-24] MEDS: INSULIN ASPART (NovoLOG) 100 UNIT/ML VIAL SQ SCH ×4 (10:35→21:35)
[2023-06-24] MEDS: INSULIN DETEMIR (LEVEMIR) 100 UNIT/ML SYR SQ SCH ×2 (10:35→21:35)
[2023-06-24] MEDS ORDERED: MIDAZOLAM 2 MG/2 ML VIAL IVP ONE (10:56)
[2023-06-24] MEDS ORDERED: LIDOCAINE 2% (PF) 20 MG/ML 5 ML VIAL SQ ONE (10:58)
[2023-06-24] MEDS ORDERED: VERAPAMIL SYRINGE (5 MG/10 ML) INTRAARTER ONE (11:06)
[2023-06-24] MEDS ORDERED: HEPARIN SODIUM 1,000 UN/ML (10ML VL) IV ONE (11:09)
[2023-06-24] MEDS ORDERED: IOPAMIDOL-370 100ML BTL INJ ONE (11:21)
[2023-06-24] MEDS ORDERED: RX INFO: IV CONTRAST WAS GIVEN 1 EACH MISC MISCELLANE PRN (12:05)
--- NOTE | 2023-06-24 12:16 | CC ---
CARDIAC CATHETERIZATION REPORT INDICATION: Unstable angina. PROCEDURE NOTE: After obtaining informed consent, left heart catheterization and coronary angiogram were performed via the right radial artery using standard Vik catheters. The patient tolerated the procedure well without any obvious immediate complications. She received verapamil and heparin per protocol, and a TR band will be used for hemostasis at the end of the procedure. The patient received moderate conscious sedation. Total sedation time was 20 minutes. I obtained right radial artery access using Seldinger technique. A 6-Luxembourger sheath was placed. Catheters and wires were floated into the ascending aorta under fluoroscopic guidance. FINDINGS: 1. HEMODYNAMICS: Left ventricular end-diastolic pressure is 16 mmHg. There is no significant gradient across the aortic valve. 2. LEFT VENTRICULOGRAM: Left ventriculogram is not performed. 3. AORTOGRAM: Aortogram is performed to rule out any anomalous coronary arteries as the course of her LAD appears somewhat unusual, and the aortogram did not reveal any anomalous coronary arteries, and there is no evidence of aortic aneurysm. 4. ANGIOGRAPHIC DATA: a.Right coronary artery: Right coronary artery is a large dominant vessel and is free of significant stenosis. b.Left main coronary artery is a long vessel, divides into left anterior descending coronary artery and circumflex coronary artery. LAD and its branches and circumflex coronary artery and its branches are free of significant stenosis. CONCLUSIONS: Normal coronary arteries. The patient's chest discomfort is noncardiac in origin. The patient had a run of nonsustained VT this morning. We will treat her with beta- blockers. We will resume her Coumadin today and will be discharged home tomorrow. MMODL / IJN: [id number] /
[2023-06-24 13:10] LABS: Glucose,Whole Blood 178 mg/dL (70-110)
[2023-06-24] MEDS: SODIUM CHLORIDE 0.9% 1,000 ML IV SCH ×2 (14:18→18:30)
[2023-06-24] MEDS: ISOSORBIDE MONONITRATE ER 30 MG TAB.ER.24H PO SCH (14:20)
--- NOTE | 2023-06-24 16:33 | P.PN ---
Subjective Progress Note Date: 06/24/23 Hospital Course: 72-year-old female with history of PA, paroxysmal atrial fibrillation on Coumadin, pacemaker, insulin-dependent diabetes, COPD, TIA, GONZÁLEZ, history of breast cancer, remote history of smoking presenting with chest pain from outside facility. Vital signs have been within normal limits at our facility. Laboratory workup showed mild normocytic anemia 10.3, INR 2.5, potassium 5.2, creatinine 0.92, troponin as high as 0.035. EKG did show patient with him. Echocardiogram showed 50-55% EF, mild to moderate aortic stenosis. Cardiology consulted. Cardiac cath showed normal coronary arteries. Subjective: Patient seen and examined at bedside. No acute events overnight. Denies any chest pain. Pertinent positives and negatives as discussed above, a complete review of systems was performed and all other systems are negative. Vitals Signs Reviewed. General: nontoxic, no distress, appears at stated age Derm: warm, dry Head: atraumatic, normocephalic, symmetric Eyes: EOMI, no lid lag, anicteric sclera Mouth: no lip lesion, mucus membranes moist Cardiovascular: S1S2 reg, no murmur Lungs: CTA bilateral, no rhonchi, no rales , no accessory muscle use Abdominal: soft, nontender to palpation, no guarding, no appreciable organomegaly Ext: no gross muscle atrophy, no edema, no contractures Neuro: CN II-XI grossly intact, no focal neuro deficits Psych: Alert, oriented, appropriate affect Data Reviewed Today: Pertinent Labs: Potassium 4.9, creatinine 0.74, blood sugars range between 130 to 178 Imaging: No new imaging Assessment and Plan: Elevated troponin atypical chest pain, unlikely to be ACS -Continue telemetry -Cardiac cath report reviewed, normal coronary arteries -Continue aspirin, atorvastatin A. fib with RVR resolved -Currently paced rhythm -Coumadin restarted -Continue with digoxin and metoprolol Diabetes mellitus with hyperglycemia -continue with long-acting insulin and insulin sliding scale COPD currently compensated -Continue with inhalers Normocytic anemia, hemoglobin improving -Denies GI bleeding -Continue to monitor DVT ppx: Coumadin Code status: Full code Anticipated discharge place: Pending clinical course Anticipated discharge time: Pending Clinical course Objective - Vital Signs Vital signs: Vital Signs Temp 98 F 06/24/23 15:00 Pulse 70 06/24/23 15:00 Resp 18 06/24/23 15:00 BP 122/69 06/24/23 15:00 Pulse Ox 96 06/24/23 15:00 FiO2 Intake & Output 06/23/23 06/24/23 06/24/23 18:59 06:59 18:59 Intake Total 480 340 Balance 480 340 Intake: IV 100 Oral 480 240 Other: Voiding Method Toilet Toilet # Voids 3 1 1 - Labs CBC & Chem 7: 06/23/23 05:38 06/24/23 05:48 Labs: Abnormal Lab Results - Last 24 Hours (Table) 06/23/23 06/23/23 06/24/23 Range/Units 17:35 20:30 05:48 PT (9.0-12.0) sec INR (<1.2) BUN (7-17) mg/dL Glucose (74-99) mg/dL POC Glucose (mg/dL) 167 H 180 H (70-110) mg/dL Hemoglobin A1c 8.2 H (<=6.0) % 06/24/23 06/24/23 06/24/23 Range/Units 05:48 05:48 06:10 PT 13.2 H (9.0-12.0) sec INR 1.3 H (<1.2) BUN 20 H (7-17) mg/dL Glucose 132 H (74-99) mg/dL POC Glucose (mg/dL) 130 H (70-110) mg/dL Hemoglobin A1c (<=6.0) % 06/24/23 Range/Units 12:48 PT (9.0-12.0) sec INR (<1.2) BUN (7-17) mg/dL Glucose (74-99) mg/dL POC Glucose (mg/dL) 178 H (70-110) mg/dL Hemoglobin A1c (<=6.0) %
[2023-06-24 17:37] LABS: Glucose,Whole Blood 157 mg/dL (70-110)
[2023-06-24] MEDS ORDERED: WARFARIN 5 MG TAB PO ONE (18:00)
[2023-06-24 21:04] LABS: Glucose,Whole Blood 229 mg/dL (70-110)
[2023-06-24] MEDS: MONTELUKAST 10 MG TAB PO SCH (21:35)
[2023-06-25] MEDS: SODIUM CHLORIDE 0.9% 1,000 ML IV SCH (05:20)
[2023-06-25 06:04] LABS: INR 1.1 (<1.2); Prothrombin Time 11.9 sec (9.0-12.0)
[2023-06-25 06:25] LABS: Glucose,Whole Blood 143 mg/dL (70-110)
[2023-06-25] MEDS: INSULIN ASPART (NovoLOG) 100 UNIT/ML VIAL SQ SCH (06:27)
[2023-06-25] MEDS: LEVOTHYROXINE 75 MCG TAB PO SCH (06:40)
[2023-06-25] MEDS: PANTOPRAZOLE 40 MG TABLET PO SCH (06:40)
[2023-06-25] MEDS: INSULIN DETEMIR (LEVEMIR) 100 UNIT/ML SYR SQ SCH (06:40)
[2023-06-25 08:03] VITALS: BP 160/76; PULSE 72; RESP 16; TEMP 97.7
[2023-06-25] MEDS: DIGOXIN 250 MCG TAB PO SCH (08:31)
[2023-06-25] MEDS: hydroCHLOROthiazide 12.5 MG CAP PO SCH (08:31)
[2023-06-25] MEDS: METOPROLOL SUCCINATE (ER) 25 MG TAB.ER.24H PO SCH (08:31)
[2023-06-25] MEDS: ISOSORBIDE MONONITRATE ER 30 MG TAB.ER.24H PO SCH (08:31)
[2023-06-25] MEDS: ATORVASTATIN 20 MG TAB PO SCH (08:31)
[2023-06-25] MEDS: ASPIRIN 81 MG PO SCH (08:31)
[2023-06-25] MEDS: LOSARTAN 50 MG TAB PO SCH (08:31)
[2023-06-25] MEDS: SYMBICORT 160-4.5 MCG INHALER INHALATION SCH (08:41)
--- NOTE | 2023-06-25 09:09 | P.PN ---
Subjective Progress Note Date: 06/25/23 History of present illness: This is a 72 year old female patient follows with that blocker and cutter contact lens out of [place]. She has a past medical history of paroxysmal atrial fibrillation on anticoagulation with Coumadin, dual chamber pacemaker, history of myocardial infarction according to patient diabetes mellitus type 2 insulin requiring, COPD, TIA, obstructive sleep apnea, history of breast cancer, remote history of tobacco use and dependence. We have been asked to evaluate the patient for acute chest pain, A. fib with RVR. Patient is a very poor historian. She is able to see relate that she had heaviness in her chest that felt like an elephant. Patient was transferred from [facility] where she was found to be in A. fib with RVR. She was given Lopressor 50 mg with improvement of her heart rate. Her troponin was elevated at [place] and Coumadin was therapeutic. Patient denies having a recent stress test. Patient no longer smokes. EKG atrial paced and ventricular paced rhythm at 71 bpm WBC 7.6, hemoglobin 11, platelet count 297. INR 2.4. Electrolytes are normal. Creatinine 0.9. Troponin 0.026, 0.035 and 0.031. Home cardiac medications: Aspirin 81 mg daily, digoxin 250 g daily, hydrochlorothiazide 0.5 mg daily, Imdur or 30 mg daily, levothyroxine 75 g daily, losartan 100 mg daily, Toprol-XL 25 mg daily, Crestor 10 mg daily, Coumadin alternating between 1 mg and 2 mg. Echocardiogram 03/2021 EF 40-45% and mild aortic stenosis 06/24 Patient received 1 dose of IV vitamin K yesterday and INR today is at 1.3. She is scheduled for cardiac catheterization with Dr. Syd Lockhart today. Echocardiogram revealed EF of 50-55%, mild to moderate aortic stenosis. Patient appears quite anxious this morning. She denies any chest pain no shortness of breath. Nursing was concern for 6 beat run of V. tach nonsustained this morning. Telemetry will be reviewed. 06/25 Yesterday, patient underwent cardiac catheterization which revealed normal coronary arteries. For the run of nonsustained ventricular tachycardia, patient is treated with beta blockers. Patient denies any symptoms today. She is anxious to be discharged home. Blood pressure 160/76, heart rate in the 70s, pulse ox 95% on room air. Patient received 1 dose of Coumadin 5 mg last evening, INR is 1.1. Patient's been instructed to resume her normal warfarin dosing. Physical examination: Gen: This is a 72-year-old obese female. She is resting bed appears to be comfortable. VS: reviewed. Blood pressure 144/75, heart rate 69, pulse ox 94% on room air. HEENT: Head is atraumatic, normocephalic. Pupils equal, round. Sclerae is anicteric. NECK: Supple. No JVD. LUNGS: Clear to auscultation. No wheezes or rhonchi. No intercostal retractions. HEART: Regular rate and rhythm. Systolic murmur. ABDOMEN: Soft No tenderness. EXTREMITIES: No pedal edema. No calf tenderness. NEUROLOGICAL: Patient is awake, alert. Assessment: Chest pain with mild troponin elevation Acute coronary syndrome has been ruled out Paroxysmal atrial fibrillation Dual chamber pacemaker Aortic stenosis History of MS Diabetes mellitus type 2 COPD History of TIA Remote history of tobacco use Plan: Continue patient's home cardiac medications Patient is cleared for discharge from cardiology and may follow-up with her primary blocker and cutter contact lens in 1 week. Nurse practitioner note has been reviewed, I agree with documented findings and plan of care. Patient was seen and examined. Objective - Vital Signs Vital signs: Vital Signs Temp 97.7 F 06/25/23 07:53 Pulse 72 06/25/23 07:53 Resp 16 06/25/23 07:53 BP 160/76 06/25/23 07:53 Pulse Ox 95 06/25/23 07:53 FiO2 Intake & Output 06/24/23 06/25/23 06/25/23 18:59 06:59 18:59 Intake Total 458 Balance 458 Intake: IV 100 Oral 358 Other: Voiding Method Toilet Toilet # Voids 1 2 - Labs CBC & Chem 7: 06/23/23 05:38 06/24/23 05:48 Labs: Abnormal Lab Results - Last 24 Hours (Table) 06/24/23 06/24/23 06/24/23 Range/Units 05:48 05:48 12:48 BUN 20 H (7-17) mg/dL Glucose 132 H (74-99) mg/dL POC Glucose (mg/dL) 178 H (70-110) mg/dL Hemoglobin A1c 8.2 H (<=6.0) % 06/24/23 06/24/23 06/25/23 Range/Units 17:36 21:02 06:23 BUN (7-17) mg/dL Glucose (74-99) mg/dL POC Glucose (mg/dL) 157 H 229 H 143 H (70-110) mg/dL Hemoglobin A1c (<=6.0) %
--- NOTE | 2023-06-25 15:01 | P.DS ---
Providers Date of admission: 06/22/23 20:50 Expected date of discharge: 06/25/23 Attending physician: Chao Farley MD Consults: 06/22/23 20:50 Consult Physician Urgent Consulting Provider: [facility] Consult Reason/Comments: acute chest pain, afib with rvr Do you want consulting provider notified?: Yes Primary care physician: Maye Bah DO Hospital Course: Discharge Diagnosis: Elevated troponin atypical chest pain, unlikely to be ACS A. fib with RVR resolved Diabetes mellitus with hyperglycemia COPD currently compensated Normocytic anemia Hospital Course: 72-year-old female with history of VT, paroxysmal atrial fibrillation on Coumadin, pacemaker, insulin-dependent diabetes, COPD, TIA, GONZÁLEZ, history of breast cancer, remote history of smoking presenting with chest pain from outside facility. Vital signs have been within normal limits at our facility. Laboratory workup showed mild normocytic anemia 10.3, INR 2.5, potassium 5.2, creatinine 0.92, troponin as high as 0.035. EKG did show patient with him. Echocardiogram showed 50-55% EF, mild to moderate aortic stenosis. Cardiology consulted. Cardiac cath showed normal coronary arteries. Patient being discharged home. Patient seen and examined at bedside. Vital signs reviewed and stable. General: nontoxic, no distress, appears at stated age Derm: warm, dry Head: atraumatic, normocephalic, symmetric Eyes: EOMI, no lid lag, anicteric sclera Mouth: no lip lesion, mucus membranes moist Cardiovascular: S1S2 reg, no murmur Lungs: CTA bilateral, no rhonchi, no rales , no accessory muscle use Abdominal: soft, nontender to palpation, no guarding, no appreciable organomegaly Ext: no gross muscle atrophy, no edema, no contractures Neuro: CN II-XI grossly intact, no focal neuro deficits Psych: Alert, oriented, appropriate affect A total of 36 minutes of time were spent preparing this complex discharge summary. Patient was discharged on 06/25/23 at 1054. Patient Condition at Discharge: Stable Plan - Discharge Summary Discharge Rx Participant: No New Discharge Prescriptions: Continue Losartan Potassium [Cozaar] 100 mg PO DAILY Aspirin EC [Ecotrin Low Dose] 81 mg PO DAILY Levothyroxine Sodium [Synthroid] 75 mcg PO DAILY metFORMIN HCL [Glucophage] 1,000 mg PO BID glipiZIDE [glipiZIDE ER] 5 mg PO AC-BRKFST Metoprolol Succinate (ER) [Toprol XL] 25 mg PO DAILY Montelukast Sodium 10 mg PO HS Warfarin Sodium [Jantoven] 1 mg PO MOWEFR Omeprazole [PriLOSEC] 20 mg PO DAILY Rosuvastatin [Crestor] 10 mg PO DAILY hydroCHLOROthiazide 12.5 mg PO DAILY Digoxin 250 mcg PO DAILY Warfarin Sodium [J[facility]oven] [facility] Isosorbide Mononitrate ER [Imdur] 30 mg PO DAILY Budesonide/Formoterol Fumarate [Symbicort 160-4.5 Mcg Inhaler] 2 puff INHALATION RT-BID Budesonide [Pulmicort] 0.5 mg INHALATION RT-BID Insulin Glargine,Hum.rec.anlog [Lantus Solostar Pen] 44 units SQ HS Insulin Glargine,Hum.rec.anlog [Lantus Solostar Pen] 25 units SQ DAILY Discharge Medication List Losartan Potassium [Cozaar] 100 mg PO DAILY 03/27/19 [History] Aspirin EC [Ecotrin Low Dose] 81 mg PO DAILY 04/01/21 [History] Budesonide [Pulmicort] 0.5 mg INHALATION RT-BID 06/22/23 [History] Budesonide/Formoterol Fumarate [Symbicort 160-4.5 Mcg Inhaler] 2 puff INHALATION RT-BID 06/22/23 [History] Digoxin 250 mcg PO DAILY 06/22/23 [History] Insulin Glargine,Hum.rec.anlog [Lantus Solostar Pen] 25 units SQ DAILY 06/22/23 [History] Insulin Glargine,Hum.rec.anlog [Lantus Solostar Pen] 44 units SQ HS 06/22/23 [History] Isosorbide Mononitrate ER [Imdur] 30 mg PO DAILY 06/22/23 [History] Levothyroxine Sodium [Synthroid] 75 mcg PO DAILY 06/22/23 [History] Metoprolol Succinate (ER) [Toprol XL] 25 mg PO DAILY 06/22/23 [History] Montelukast Sodium 10 mg PO HS 06/22/23 [History] Omeprazole [PriLOSEC] 20 mg PO DAILY 06/22/23 [History] Rosuvastatin [Crestor] 10 mg PO DAILY 06/22/23 [History] Warfarin Sodium [Jantoven] 1 mg PO MOWEFR 06/22/23 [History] Warfarin Sodium [Jantoven] 2 mg PO SUTUTHSA 06/22/23 [History] glipiZIDE [glipiZIDE ER] 5 mg PO AC-BRKFST 06/22/23 [History] hydroCHLOROthiazide 12.5 mg PO DAILY 06/22/23 [History] metFORMIN HCL [Glucophage] 1,000 mg PO BID 06/22/23 [History] Follow up Appointment(s)/Referral(s): Brianna Cunha MD [STAFF PHYSICIAN] - 1 Week Maye Bah DO [Primary Care Provider] - 1-2 days Patient Instructions/Handouts: *Surgery [facility] - After Heart Catheterization - Traffic Monitor Specialist Instructions, A-fib (Atrial Fibrillation) (DC), Chest Pain (DC), Heart Catheterization (GEN) Activity/Diet/Wound Care/Special Instructions: Please see your PCP and cardiology. Discharge Disposition: HOME SELF-CARE
== END 2023-06-25 11:40 | disposition home or self-care (01) ==
LOC: EC 18:31 → SUPCPDRO 18:31 → 6NMEDSUR 20:50
PROVIDERS: ADMIT Internal Medicine; ATTEND Internal Medicine
DX: R07.89 Other chest pain (principal); R77.8 Other specified abnormalities of plasma proteins; I48.0 Paroxysmal atrial fibrillation; E11.65 Type 2 diabetes mellitus with hyperglycemia; D64.9 Anemia, unspecified; I35.0 Nonrheumatic aortic (valve) stenosis; I47.20 Ventricular tachycardia, unspecified; J44.9 Chronic obstructive pulmonary disease, unspecified; I10 Essential (primary) hypertension; E78.5 Hyperlipidemia, unspecified; F32.A Depression, unspecified; G47.33 Obstructive sleep apnea (adult) (pediatric); I25.10 Atherosclerotic heart disease of native coronary artery without angina pectoris; I25.2 Old myocardial infarction; F17.200 Nicotine dependence, unspecified, uncomplicated; Z85.3 Personal history of malignant neoplasm of breast; Z86.73 Personal history of transient ischemic attack (TIA), and cerebral infarction without residual deficits; Z90.12 Acquired absence of left breast and nipple; Z95.0 Presence of cardiac pacemaker; Z79.01 Long term (current) use of anticoagulants; Z79.82 Long term (current) use of aspirin; Z79.51 Long term (current) use of inhaled steroids; Z79.4 Long term (current) use of insulin; Z79.890 Hormone replacement therapy; Z79.84 Long term (current) use of oral hypoglycemic drugs; Z79.899 Other long term (current) drug therapy
CPT/HCPCS: 96365; 96372 ×2; 99285; 36415; 94640 ×5; 93005; 93306; 93458; 93567; 80053; 80048 ×2; 84484; 85025 ×2; 85610 ×4; 85730; 83036; G0378 ×4; C1769; C1894; J2250; J3430; J1644; Q9967; J2001

== ENCOUNTER 2024-01-13 17:41 | Observation (INO) | payer MEDICARE ==
[2024-01-13 18:39] LABS: ALT 25 U/L (4-34); AST 15 U/L (14-36); African American GFR (CKD) 60 (>60 ml/min/1.73 sqM); Albumin 3.2 g/dL (3.5-5.0); Alkaline Phosphatase 106 U/L (38-126); Anion Gap 3 mmol/L; Blood Urea Nitrogen 25 mg/dL (7-17); Calcium 8.5 mg/dL (8.4-10.2); Carbon Dioxide 31 mmol/L (22-30); Chloride 106 mmol/L (98-107); Glucose 126 mg/dL (74-99); Magnesium 1.9 mg/dL (1.6-2.3); Non-African American GFR(CKD) 52 (>60 ml/min/1.73 sqM); Potassium 4.9 mmol/L (3.5-5.1); Sodium 140 mmol/L (137-145); Total Bilirubin 0.3 mg/dL (0.2-1.3); Total Protein 5.9 g/dL (6.3-8.2)
[2024-01-13 18:41] LABS: Basophils % (A) 1 %; Eosinophils # (A) 0.1 k/uL (0-0.7); Eosinophils % (A) 1 %; HGB 9.9 gm/dL (11.4-16.0); Hypochromasia Moderate; Lymphocytes # (A) 1.2 k/uL (1.0-4.8); Lymphocytes % (A) 16 %; MCH 24.7 pg (25.0-35.0); MCV 82.4 fL (80.0-100.0); Mean Platelet Volume 8.1; Monocytes # (A) 0.5 k/uL (0-1.0); Monocytes % (A) 6 %; Neutrophils # (A) 5.8 k/uL (1.3-7.7); Neutrophils % (A) 75 %; Platelet Count 303 k/uL (150-450); RDW 15.4 % (11.5-15.5); WBC 7.8 k/uL (3.8-10.6)
[2024-01-13 18:47] LABS: NT-Pro-B-Type Natriuretic Pept 1310 pg/mL
[2024-01-13 19:06] LABS: INR 1.7 (<1.2)
[2024-01-13] MEDS: SODIUM CHLORIDE 0.9% 1,000 ML IV STA (19:15)
--- NOTE | 2024-01-13 19:25 | ED ---
SOB HPI - General Chief Complaint: Shortness of Breath Stated Complaint: SOB Time Seen by Provider: 01/13/24 17:47 Source: patient, EMS, RN notes reviewed, old records reviewed Mode of arrival: EMS Limitations: no limitations - History of Present Illness Initial Comments: This is a 73-year-old female to the ER for evaluation of dyspnea persistent shortness of breath and weakness. Patient was excepted in transfer from outside facility for evaluation regarding exertional dyspnea. MD Complaint: shortness of breath, anxiety -: minutes(s) Radiation: neck Severity: moderate Severity scale (1-10): 7 Consistency: constant Improves With: nothing Known History Of: COPD Context: recent URI, recent illness Associated Symptoms: denies other symptoms Treatments Prior to Arrival: none - Related Data Home Medications Medication Instructions Recorded Confirmed Aspirin EC [Ecotrin Low Dose] 81 mg PO DAILY 04/01/21 01/13/24 Budesonide [Pulmicort] 0.5 mg INHALATION RT-BID 06/22/23 01/13/24 Insulin Glargine,Hum.rec.anlog 30 units SQ DAILY 06/22/23 01/13/24 [Lantus Solostar Pen] Insulin Glargine,Hum.rec.anlog 44 units SQ HS 06/22/23 01/13/24 [Lantus Solostar Pen] Isosorbide Mononitrate ER [Imdur] 30 mg PO DAILY 06/22/23 01/13/24 Levothyroxine Sodium [Synthroid] 75 mcg PO DAILY 06/22/23 01/13/24 Metoprolol Succinate (ER) [Toprol 25 mg PO DAILY 06/22/23 01/13/24 XL] Montelukast Sodium 10 mg PO HS 06/22/23 01/13/24 Omeprazole [PriLOSEC] 20 mg PO DAILY 06/22/23 01/13/24 Rosuvastatin [Crestor] 10 mg PO DAILY 06/22/23 01/13/24 metFORMIN HCL [Glucophage] 1,000 mg PO BID 06/22/23 01/13/24 Budesonide/Formoterol Fumarate 2 puff INHALATION RT-BID 01/13/24 01/13/24 [Breyna 160-4.5 Mcg Inhaler] Insulin Aspart [NovoLOG Flexpen] 10 units SQ AC-LUNCH 01/13/24 01/13/24 Insulin Aspart [NovoLOG Flexpen] 15 units SQ AC-SUPPER 01/13/24 01/13/24 glipiZIDE [glipiZIDE ER] 10 mg PO DAILY 01/13/24 01/13/24 Previous Rx's Medication Instructions Recorded Enoxaparin [Lovenox] 150 mg SQ DAILY 7 Days #7 each 01/15/24 Losartan [Cozaar] 50 mg PO DAILY #30 tab 01/15/24 Warfarin Sodium [Jantoven] 3 mg PO DAILY #0 01/15/24 Allergies Allergy/AdvReac Type Severity Reaction Status Date / Time No Known Allergies Allergy Verified 01/13/24 19:06 Review of Systems ROS Statement: Those systems with pertinent positive or pertinent negative responses have been documented in the HPI. ROS Other: All systems not noted in ROS Statement are negative. Past Medical History Past Medical History: Cancer, COPD, Hyperlipidemia, Hypertension, Myocardial Infarction (CA), Thyroid Disorder Additional Past Medical History / Comment(s): LOW THYROID, CPAP HS, Oct 2020-CA, 2020 Mild stroke (per family), OCT 2020 PACER PLACED, BREAST CANCER, STAPH INFECTION OF LOWER SPINE, CURRENT SMOKER Last Myocardial Infarction Date:: OCTOBER 2020 History of Any Multi-Drug Resistant Organisms: None Reported Past Surgical History: Cholecystectomy, Pacemaker Additional Past Surgical History / Comment(s): MASTECTOMY LEFT SIDE pacemaker oct 2020, I & D OF LOWER SPINE Past Anesthesia/Blood Transfusion Reactions: No Reported Reaction Type of Cardiac Device: Unknown Device Placement Date:: OCTOBER 2020 Past Psychological History: Depression Smoking Status: Former smoker Past Alcohol Use History: None Reported Past Drug Use History: None Reported General Exam Limitations: no limitations General appearance: alert, in no apparent distress Head exam: Present: atraumatic, normocephalic, normal inspection Eye exam: Present: normal appearance, PERRL, EOMI. Absent: scleral icterus, conjunctival injection, periorbital swelling ENT exam: Present: normal exam, mucous membranes moist Neck exam: Present: normal inspection. Absent: tenderness, meningismus, lymphadenopathy Respiratory exam: Present: normal lung sounds bilaterally. Absent: respiratory distress, wheezes, rales, rhonchi, stridor Cardiovascular Exam: Present: regular rate, normal rhythm, normal heart sounds. Absent: systolic murmur, diastolic murmur, rubs, gallop, clicks GI/Abdominal exam: Present: soft, normal bowel sounds. Absent: distended, t enderness, guarding, rebound, rigid Extremities exam: Present: normal inspection, full ROM, normal capillary refill. Absent: tenderness, pedal edema, joint swelling, calf tenderness Back exam: Present: normal inspection Neurological exam: Present: alert, oriented X3, CN II-XII intact Psychiatric exam: Present: normal affect, normal mood Skin exam: Present: warm, dry, intact, normal color. Absent: rash Course Vital Signs 01/13/24 01/13/24 01/13/24 17:44 17:47 19:00 Temperature 98.0 F Pulse Rate 75 71 Respiratory 18 18 22 Rate Blood Pressure 127/62 126/78 O2 Sat by Pulse 98 98 Oximetry 01/13/24 01/13/24 01/13/24 20:29 20:35 21:30 Temperature Pulse Rate 78 70 73 Respiratory 18 Rate Blood Pressure 154/56 O2 Sat by Pulse 96 Oximetry 01/13/24 01/14/24 01/14/24 22:00 00:00 03:00 Temperature 98.9 F Pulse Rate 72 70 69 Respiratory 20 18 18 Rate Blood Pressure 144/61 126/58 116/72 O2 Sat by Pulse 96 96 95 Oximetry 01/14/24 01/14/24 01/14/24 07:16 07:59 08:04 Temperature Pulse Rate 69 69 Respiratory 18 Rate Blood Pressure 145/79 O2 Sat by Pulse 97 94 L Oximetry 01/14/24 01/14/24 01/14/24 08:09 18:00 19:46 Temperature Pulse Rate 70 72 70 Respiratory 18 19 Rate Blood Pressure 139/59 152/67 O2 Sat by Pulse 97 93 L Oximetry 01/14/24 01/14/24 01/14/24 20:05 20:20 23:47 Temperature Pulse Rate 71 76 72 Respiratory 19 Rate Blood Pressure 152/67 O2 Sat by Pulse 92 L Oximetry - Reevaluation(s) Reevaluation #1: Medical records reviewed Reevaluation #2: Patient symptoms i relatively unchanged Reevaluation #3: Informed of results questions answered Reevaluation #4: Was pt. sent in by a medical professional or institution (, PA, ANALOG IC DESIGN ENGINEER, urgent care, hospital, or retirement...) When possible be specific @ -no Did you speak to anyone other than the patient for history (EMS, parent, family, police, friend...)? What history was obtained from this source @ -no Did you review nursing and triage notes (agree or disagree)? Why? @ -agree Are old charts reviewed (outside hosp., previous admission, EMS record, old EKG, old radiological studies, urgent care reports/EKG's, retirement records)? Report findings @ -yes Differential Diagnosis (chest pain, altered mental status, abdominal pain women, abdominal pain men, vaginal bleeding, weakness, fever, dyspnea, syncope, headache, dizziness, GI bleed, back pain, seizure, CVA, palpatations, mental health, musculoskeletal)? @ -prior EKG interpreted by me (3pts min.). @ -yes X-rays interpreted by me (1pt min.). @ -no CT interpreted by me (1pt min.). @ -yes negative for acute disease U/S interpreted by me (1pt. min.). @ -no What testing was considered but not performed or refused? (CT, X-rays, U/S, labs)? Why? @ -none What meds were considered but not given or refused? Why? @ -none Did you discuss the management of the patient with other professionals (professionals i.e. , PA, ANALOG IC DESIGN ENGINEER, lab, RT, psych nurse, social services, multiple pressure riveter operator, te acher, protocol officer, adult protective caseworker)? Give summary @ -no Was smoking cessation discussed for >3mins.? @ -no Was critical care preformed (if so, how long)? @ -yes31 Were there social determinants of health that impacted care today? How? (Homelessness, low income, unemployed, alcoholism, drug addiction, transportation, low edu. Level, literacy, decrease access to med. care, [place] [facility], rehab)? @ -none Was there de-escalation of care discussed even if they declined (Discuss DNR or withdrawal of care, Hospice)? DNR status @ -no What co-morbidities impacted this encounter? (DM, HTN, Smoking, COPD, CAD, Cancer, CVA, ARF, Chemo, Hep., AIDS, mental health diagnosis, sleep apnea, morbid obesity)? @ -none Was patient admitted / discharged? Hospital course, mention meds given and route, prescriptions, significant lab abnormalities, going to OR and other pertinent info. @ - 73 female to ER for evaluation of severe dyspnea and significant debility. Patient has non-ST elevated CA with dyspnea shortness of breath COPD with respiratory distress Admitted Undiagnosed new problem with uncertain prognosis? @ -no Drug Therapy requiring intensive monitoring for toxicity (Heparin, Nitro, Insulin, Cardizem)? @ -no Were any procedures done? @ -no Diagnosis/symptom? @ -COPD non-ST elevated CA Acute, or Chronic, or Acute on Chronic? @ -Acute Uncomplicated (without systemic symptoms) or Complicated (systemic symptoms)? @ -Complicated Side effects of treatment? @ -no Exacerbation, Progression, or Severe Exacerbation? @ -exacerbation Poses a threat to life or bodily function? How? (Chest pain, USA, CA, pneumonia, PE, COPD, DKA, ARF, appy, cholecystitis, CVA, Diverticulitis, Homicidal, Suicid al, threat to staff... and all critical care pts) @ -yes yes extremes of age Reevaluation #5: Differential Dyspnea: Coronary syndrome, arrhythmia, tamponade, asthma, COPD, pulmonary embolism, pneumonia, pneumothorax, pulmonary effusion, anaphylaxis, diabetic ketoacidosis, flailed chest, pulmonary contusion, diaphragmatic rupture, anemia, neuromuscular, this is not meant to be an all-inclusive list. - Consultations Consultation #1: Spoke with many physicians who agreed to admit this patient Medical Decision Making - Medical Decision Making 73 female to ER for evaluation of severe dyspnea and significant debility. Patient has non-ST elevated CA with dyspnea shortness of breath COPD with respiratory distress - Lab Data Result diagrams: 01/14/24 07:31 01/15/24 06:46 Lab Results 01/13/24 01/13/24 01/13/24 Range/Units 18:10 18:10 18:10 WBC 7.8 (3.8-10.6) k/uL RBC 4.00 (3.80-5.40) m/uL Hgb 9.9 L (11.4-16.0) gm/dL Hct 33.0 L (34.0-46.0) % MCV 82.4 (80.0-100.0) fL MCH 24.7 L (25.0-35.0) pg MCHC 30.0 L (31.0-37.0) g/dL RDW 15.4 (11.5-15.5) % Plt Count 303 (150-450) k/uL MPV 8.1 Neutrophils % 75 % Lymphocytes % 16 % Monocytes % 6 % Eosinophils % 1 % Basophils % 1 % Neutrophils # 5.8 (1.3-7.7) k/uL Lymphocytes # 1.2 (1.0-4.8) k/uL Monocytes # 0.5 (0-1.0) k/uL Eosinophils # 0.1 (0-0.7) k/uL Basophils # 0.0 (0-0.2) k/uL Hypochromasia Moderate PT 17.0 H (10.0-12.5) sec INR 1.7 H (<1.2) APTT 30.0 (22.0-30.0) sec D-Dimer <0.17 (<0.60) mg/L FEU Sodium 140 (137-145) mmol/L Potassium 4.9 (3.5-5.1) mmol/L Chloride 106 (98-107) mmol/L Carbon Dioxide 31 H (22-30) mmol/L Anion Gap 3 mmol/L BUN 25 H (7-17) mg/dL Creatinine 1.06 H (0.52-1.04) mg/dL Est GFR (CKD-EPI)AfAm 60 (>60 ml/min/1.73 sqM) Est GFR (CKD-EPI)NonAf 52 (>60 ml/min/1.73 sqM) Glucose 126 H (74-99) mg/dL Calcium 8.5 (8.4-10.2) mg/dL Magnesium 1.9 (1.6-2.3) mg/dL Total Bilirubin 0.3 (0.2-1.3) mg/dL AST 15 (14-36) U/L ALT 25 (4-34) U/L Alkaline Phosphatase 106 (38-126) U/L Troponin I (0.000-0.034) ng/mL NT-Pro-B Natriuret Pep 1310 pg/mL Total Protein 5.9 L (6.3-8.2) g/dL Albumin 3.2 L (3.5-5.0) g/dL // Range/Units 18:10 WBC (3.8-10.6) k/uL RBC (3.80-5.40) m/uL Hgb (11.4-16.0) gm/dL Hct (34.0-46.0) % MCV (80.0-100.0) fL MCH (25.0-35.0) pg MCHC (31.0-37.0) g/dL RDW (11.5-15.5) % Plt Count (150-450) k/uL MPV Neutrophils % % Lymphocytes % % Monocytes % % Eosinophils % % Basophils % % Neutrophils # (1.3-7.7) k/uL Lymphocytes # (1.0-4.8) k/uL Monocytes # (0-1.0) k/uL Eosinophils # (0-0.7) k/uL Basophils # (0-0.2) k/uL Hypochromasia PT (10.0-12.5) sec INR (<1.2) APTT (22.0-30.0) sec D-Dimer (<0.60) mg/L FEU Sodium (137-145) mmol/L Potassium (3.5-5.1) mmol/L Chloride (98-107) mmol/L Carbon Dioxide (22-30) mmol/L Anion Gap mmol/L BUN (7-17) mg/dL Creatinine (0.52-1.04) mg/dL Est GFR (CKD-EPI)AfAm (>60 ml/min/1.73 sqM) Est GFR (CKD-EPI)NonAf (>60 ml/min/1.73 sqM) Glucose (74-99) mg/dL Calcium (8.4-10.2) mg/dL Magnesium (1.6-2.3) mg/dL Total Bilirubin (0.2-1.3) mg/dL AST (14-36) U/L ALT (4-34) U/L Alkaline Phosphatase (38-126) U/L Troponin I 0.072 H* (0.000-0.034) ng/mL NT-Pro-B Natriuret Pep pg/mL Total Protein (6.3-8.2) g/dL Albumin (3.5-5.0) g/dL - EKG Data -: EKG Interpreted by Me (EKG is paced 72 QRS 132 QRS 152 QTc 419) - Radiology Data Radiology results: report reviewed (CTA chest negative for acute disease), image reviewed Critical Care Time Critical Care Time: Yes Total Critical Care Time: 31 Disposition Clinical Impression: Community acquired bacterial pneumonia, COPD (chronic obstructive pulmonary disease), NSTEMI (non-ST elevated myocardial infarction), Chest pain Disposition: ADMITTED IP TO THIS HOSP Condition: Serious Is patient prescribed a controlled substance at d/c from ED?: No Time of Disposition: 19:40
[2024-01-13] MEDS ORDERED: MORPHINE SULFATE 4 MG/ML SYRINGE IV PRN (19:40)
[2024-01-13] MEDS ORDERED: ONDANSETRON 4 MG/2 ML VIAL IVP PRN (19:40)
[2024-01-13] MEDS ORDERED: NALOXONE 0.4 MG/ML 1 ML VIAL IV PRN (19:40)
--- NOTE | 2024-01-13 20:06 | CT ---
EXAMINATION TYPE: CT angio chest CT DLP: 655.7 mGycm, Automated exposure control for dose reduction was used. DATE OF EXAM: 01/13/2024 7:20 PM COMPARISON: Chest x-ray 06/22/2023 and before CLINICAL INDICATION:Female, 73 years old with history of PE; SOB TECHNIQUE/CONTRAST: CTA scan of the thorax is performed with IV Contrast, patient injected with 80ml mL of Isovue 370, IA P images are created and reviewed these are created on a separate workstation.. FINDINGS: There is adequate contrast bolus and timing. PULMONARY ARTERIES: There is no evidence for a filling defect within the pulmonary vasculature to sug gest acute pulmonary embolism. Pulmonary trunk is mildly enlarged, measuring 3.1 cm. AORTA: Mild to moderate atherosclerotic calcifications of the aorta and branches. Ascending aorta is 3.4 CM, descending is 2.4 CM. HEART: Mild cardiomegaly.Moderate coronary artery calcification and/or stents. No appreciable perica rdial effusion. LOWER NECK: No significant findings. MEDIASTINUM: Nonenlarged mediastinal nodes. SOFT TISSUES/AXILLA: Unremarkable soft tissues. No axillary adenopathy. Left chest contains a dual l ead permanent pacemaker with leads extending to the RV and RA. LUNGS/ PLEURA: Moderate upper lobe predominant pulmonary emphysematous changes bilaterally. Mild inte rstitial thickening bilaterally. Minor consolidative opacities in the lung bases likely on the basis of atelectasis. No pleural effusion or pneumothorax. AIRWAY: Central airways are patent. MUSCULOSKELETAL: No acute osseous abnormality. Mild degenerative changes of the thoracic and upper l umbar spine, moderate degree of degenerative disc disease at L4-L5. No clearly acute osseous abnormal ities . UPPER ABDOMEN: Mild thickening of the adrenals could be related to hyperplasia. No evidence of mass. Moderate atherosclerotic disease of the upper abdominal aorta and branches, with suspected mild to mo derate stenosis of the proximal celiac and no significant stenosis of the SMA. IMPRESSION: 1. No evidence of pulmonary embolism. 2. No other acute chest process demonstrated. 3. Other chronic and likely incidental findings, as described above.
[2024-01-13] MEDS: IPRATROPIUM-ALBUTEROL 3 ML NEB INHALATION STA (20:26)
[2024-01-13 20:48] LABS: Glucose,Whole Blood 93 mg/dL (70-110)
[2024-01-14] MEDS ORDERED: HEPARIN SODIUM 1,000 UN/ML (10ML VL) IV PRN (00:06)
[2024-01-14] MEDS: HEPARIN SODIUM 1,000 UN/ML (10ML VL) IV ONE (00:51)
[2024-01-14] MEDS: HEPARIN SOD,PORK IN 0.45% NACL 25,000 UNIT in 0.45% NACL 1 250ML.BAG IV SCH (00:53)
[2024-01-14] MEDS: ALBUTEROL NEBULIZED 2.5 MG/3 ML INHALATION PRN (07:59)
[2024-01-14 08:13] LABS: Basophils % (A) 0 %; Eosinophils # (A) 0.1 k/uL (0-0.7); Eosinophils % (A) 2 %; HGB 9.1 gm/dL (11.4-16.0); Hypochromasia Marked; Lymphocytes # (A) 1.3 k/uL (1.0-4.8); Lymphocytes % (A) 22 %; MCH 24.9 pg (25.0-35.0); MCHC 29.5 g/dL (31.0-37.0); MCV 84.3 fL (80.0-100.0); Mean Platelet Volume 8.3; Monocytes # (A) 0.4 k/uL (0-1.0); Monocytes % (A) 6 %; Neutrophils # (A) 4.1 k/uL (1.3-7.7); Neutrophils % (A) 67 %; Platelet Count 270 k/uL (150-450); RBC 3.68 m/uL (3.80-5.40); RDW 15.4 % (11.5-15.5); WBC 6.1 k/uL (3.8-10.6)
[2024-01-14 08:28] LABS: ALT 24 U/L (4-34); AST 15 U/L (14-36); African American GFR (CKD) 85 (>60 ml/min/1.73 sqM); Alkaline Phosphatase 106 U/L (38-126); Anion Gap 2 mmol/L; Blood Urea Nitrogen 23 mg/dL (7-17); Calcium 8.4 mg/dL (8.4-10.2); Carbon Dioxide 31 mmol/L (22-30); Chloride 108 mmol/L (98-107); Glucose 110 mg/dL (74-99); Magnesium 1.9 mg/dL (1.6-2.3); Non-African American GFR(CKD) 74 (>60 ml/min/1.73 sqM); Phosphorus 3.7 mg/dL (2.5-4.5); Potassium 4.5 mmol/L (3.5-5.1); Sodium 141 mmol/L (137-145); Total Bilirubin 0.3 mg/dL (0.2-1.3); Total Protein 5.7 g/dL (6.3-8.2)
--- NOTE | 2024-01-14 09:42 | CONS ---
CONSULTATION CHIEF COMPLAINT: Shortness of breath with elevated troponin. HISTORY OF PRESENT ILLNESS: This is a 73-year-old lady with history of COPD, diabetes, atrial fibrillation, non- insulin-dependent diabetes, and hypertension, came to hospital because of shortness of breath for the last several days. She initially presented to one of the hospitals outside. From there, she had been transferred over to us. Her troponin is mildly elevated at 0.7, subsequent two have been at 0.7 and 0.7 with no definite pattern to it. She had an EKG that showed paced rhythm with extensive ST-T wave changes. She had a CT scan of the chest on this admission that did not reveal any evidence of pulmonary embolism and there were significant changes of emphysema noted. There is mild to moderate atherosclerotic calcification of the coronaries. At the time of my evaluation, the patient appears comfortable at rest and does not have any chest pain and her shortness of breath has improved. She had an echocardiogram 6 months ago that revealed mild to moderate aortic stenosis with normal LV systolic function. A cardiac catheterization at that time did not reveal any evidence of significant CAD. The patient at the time of my evaluation is on IV heparin, which I am going to stop, and continue the Coumadin that she is on to maintain an INR of around 2 to 2.5. PAST MEDICAL HISTORY: Significant for paroxysmal atrial fibrillation, history of permanent pacemaker, type 2 diabetes, COPD, sleep apnea, history of breast cancer. MEDICATIONS: Medications at home included, 1. Crestor. 2. Glipizide. 3. Glucophage. 4. Insulin. 5. Pulmicort. 6. Prilosec. 7. Toprol. 8. Cozaar. 9. HydroDIURIL. 10.Synthroid. 11.Imdur. 12.Insulin. 13.Aspirin. ALLERGIES: There are no known drug allergies. FAMILY HISTORY: Negative for premature coronary artery disease. SOCIAL HISTORY: Negative for current smoking, EtOH abuse, or drug abuse. REVIEW OF SYSTEMS: HEENT: Unremarkable. CARDIAC: As described above. RESPIRATORY: As described above. GI: Negative. : Negative. ALLERGY/IMMUNOLOGY: Negative. SKIN: Negative. MUSCULOSKELETAL: Significant for arthritis. PSYCHOSOCIAL: Negative. DERM: Negative. CONSTITUTIONAL: Negative. ONCOLOGICAL: Negative. DAIRY DEPARTMENT MANAGER: Negative. Rest of the system review is not relevant. PHYSICAL EXAMINATION: GENERAL: She appears comfortable at rest. VITAL SIGNS: Afebrile. Heart rate 140/70, respiratory rate is 18, O2 saturation is 97% on 3 L. NECK: There is no jugular venous distention. CHEST: Reveals bilateral rhonchi. HEART: Reveals first and second heart sounds. Ejection systolic murmur in the aortic area. ABDOMEN: Soft. EXTREMITIES: Did not reveal any edema. Peripheral pulses are felt. LABORATORY DATA: Labs show a hemoglobin of 9.1, platelet count is 270. Potassium is 4.5, creatinine is 0.7. Troponins are elevated at 0.07. ASSESSMENT: 1. Non ST-segment elevation myocardial infarction. 2. Paroxysmal atrial fibrillation. 3. Sick sinus syndrome, status post permanent pacemaker. 4. Shortness of breath probably related to chronic obstructive pulmonary disease exacerbation. PLAN: I am going to stop the IV heparin. Obtain a 2D echo to assess her LV function and wall motion. Given the recent cardiac catheterization, I do not see the need for another cardiac cath at this time. However, once respiratory status improves, I will consider doing a stress test on her. MMODL / IJN: [id number] /
[2024-01-14 11:12] LABS: Glucose,Whole Blood 275 mg/dL (70-110)
[2024-01-14] MEDS ORDERED: DEXTROSE 50% SYRINGE 50 ML IVP PRN ×2 (11:15)
--- NOTE | 2024-01-14 11:32 | P.HPIM ---
History of Present Illness Patient with concern [id number] female with known history of COPD was seen in PCPs office found to have shortness of breath and diaphoresis because of which patient was sent to the hospital patient is found to have mildly elevated troponin of 0.07. EKG showed some ST-T wave changes was eval by cardiology, patient is diagnosed with non-ST elevation MA but mostly type II from hypoxemia. Patient does have severe aortic stenosis with a 6 severe systolic murmur. Patient had a normal ejection fraction in the past patient is on Coumadin but INR is only 1.76 takes 3 mg and 5 mg of Coumadin. Patient is not wheezing today patient blood sugars are mildly elevated at this time. Patient denies any chest pain. Patient is feeling much better patient uses 3 L of oxygen at home presently on 3 L of oxygen patient denies any cough with sputum production. Patient had history of sick sinus syndrome with pacemaker in place. Patient had a CT angio of the chest which do not show any significant abnormality patient had mild acute renal failure which resolved with IV fluids overnight. REVIEW OF SYSTEMS: CONSTITUTIONAL: No fever, no malaise, no fatigue. HEENT: No recent visual problems or hearing problems. Denied any sore throat. CARDIOVASCULAR: No chest pain, orthopnea, PND, no palpitations, no syncope. PULMONARY: no hemoptysis. GASTROINTESTINAL: No diarrhea, no nausea, no vomiting, no abdominal pain. NEUROLOGICAL: No headaches, no weakness, no numbness. HEMATOLOGICAL: Denies any bleeding or petechiae. GENITOURINARY: Denies any burning micturition, frequency, or urgency. MUSCULOSKELETAL/RHEUMATOLOGICAL: Denies any joint pain, swelling, or any muscle pain. ENDOCRINE: Denies any polyuria or polydipsia. The rest of the 14-point review of systems is negative. PHYSICAL EXAMINATION: GENERAL: The patient is alert and oriented x3, not in any acute distress. Well developed, well nourished. HEENT: Pupils are round and equally reacting to light. EOMI. No scleral icterus. No conjunctival pallor. Normocephalic, atraumatic. No pharyngeal erythema. No thyromegaly. CARDIOVASCULAR: S1 and S2 present. No rubs, or gallops. Patient has grade 5 x 6 systolic murmur in the aortic area PULMONARY: Chest is clear to auscultation, no wheezing or crackles. ABDOMEN: Soft, nontender, nondistended, normoactive bowel sounds. No palpable organomegaly. MUSCULOSKELETAL: No joint swelling or deformity. EXTREMITIES: No cyanosis, clubbing, or pedal edema. NEUROLOGICAL: Gross neurological examination did not reveal any focal deficits. SKIN: No rashes. Assessment and plan -Shortness of breath may be related to COPD exacerbation on admission but patient is not wheezing at this time patient will not benefit from continued systemic steroids, patient with continued on his right send in the collation of treatment considering her troponin elevation cardiology is recommending monitoring 1 more night although IV heparin was discontinued. Shortness of breath can be secondary to severe arctic stenosis as well -Acute on chronic hypercapnic and hypoxic respiratory failure -Severe aortic stenosis: Patient is on losartan will continue losartan because of her blood pressures being on the low normal side we will cut down the losartan to 50 mg Imdur will be continued -Sick sinus syndrome with a pacemaker in place -Paroxysmal atrial fibrillation patient is subtherapeutic and INR pharmacy will be consulted for Coumadin titration repeat INR tomorrow -Type 2 diabetes mellitus with elevated uncontrolled blood sugars metformin will be held temporarily and patient will be continued on her home regimen along with sliding scale insulin will titrate insulin depending on her blood sugars -Non-ST elevation myocardial infarction most probably type II from shortness of breath IV heparin was discontinued -Acute renal failure prerenal azotemia resolved at this time IV fluids will be discontinued -Hyperlipidemia -Hypertension -Coronary disease with Stents in the past -Depression DVT prophylaxis: Lovenox Past Medical History Past Medical History: Cancer, COPD, Hyperlipidemia, Hypertension, Myocardial Infarction (MA), Thyroid Disorder Additional Past Medical History / Comment(s): LOW THYROID, CPAP HS, Oct 2020-MA, 2020 Mild stroke (per family), OCT 2020 PACER PLACED, BREAST CANCER, STAPH INFECTION OF LOWER SPINE, CURRENT SMOKER Last Myocardial Infarction Date:: OCTOBER 2020 History of Any Multi-Drug Resistant Organisms: None Reported Past Surgical History: Cholecystectomy, Pacemaker Additional Past Surgical History / Comment(s): MASTECTOMY LEFT SIDE pacemaker oct 2020, I & D OF LOWER SPINE Past Anesthesia/Blood Transfusion Reactions: No Reported Reaction Type of Cardiac Device: Unknown Device Placement Date:: OCTOBER 2020 Past Psychological History: Depression Smoking Status: Former smoker Past Alcohol Use History: None Reported Past Drug Use History: None Reported Medications and Allergies Home Medications Medication Instructions Recorded Confirmed Type Aspirin EC [Ecotrin Low Dose] 81 mg PO DAILY 04/01/21 01/13/24 History Budesonide [Pulmicort] 0.5 mg INHALATION RT-BID 06/22/23 01/13/24 History Digoxin 250 mcg PO DAILY 06/22/23 01/13/24 History Insulin Glargine,Hum.rec.anlog 30 units SQ DAILY 06/22/23 01/13/24 History [Lantus Solostar Pen] Insulin Glargine,Hum.rec.anlog 44 units SQ HS 06/22/23 01/13/24 History [Lantus Solostar Pen] Isosorbide Mononitrate ER [Imdur] 30 mg PO DAILY 06/22/23 01/13/24 History Levothyroxine Sodium [Synthroid] 75 mcg PO DAILY 06/22/23 01/13/24 History Metoprolol Succinate (ER) [Toprol 25 mg PO DAILY 06/22/23 01/13/24 History XL] Montelukast Sodium 10 mg PO HS 06/22/23 01/13/24 History Omeprazole [PriLOSEC] 20 mg PO DAILY 06/22/23 01/13/24 History Rosuvastatin [Crestor] 10 mg PO DAILY 06/22/23 01/13/24 History Warfarin Sodium [Jantoven] 2 mg PO WESA@2100 06/22/23 01/13/24 History Warfarin Sodium [Jantoven] 3 mg PO SUMOTUTHFR@2100 06/22/23 01/13/24 History metFORMIN HCL [Glucophage] 1,000 mg PO BID 06/22/23 01/13/24 History Budesonide/Formoterol Fumarate 2 puff INHALATION RT-BID 01/13/24 01/13/24 History [Breyna 160-4.5 Mcg Inhaler] Insulin Aspart [NovoLOG Flexpen] 10 units SQ AC-LUNCH 01/13/24 01/13/24 History Insulin Aspart [NovoLOG Flexpen] 15 units SQ AC-SUPPER 01/13/24 01/13/24 History Losartan Potassium [Cozaar] 100 mg PO DAILY 01/13/24 01/13/24 History glipiZIDE [glipiZIDE ER] 10 mg PO DAILY 01/13/24 01/13/24 History hydroCHLOROthiazide [Hydrodiuril] 25 mg PO DAILY 01/13/24 01/13/24 History Allergies Allergy/AdvReac Type Severity Reaction Status Date / Time No Known Allergies Allergy Verified 01/13/24 19:06 Physical Exam Vitals: Vital Signs Temp Pulse Resp BP Pulse Ox 01/14/24 08:09 70 01/14/24 08:04 94 L 01/14/24 07:59 69 01/14/24 07:16 69 18 145/79 97 01/14/24 03:00 69 18 116/72 95 01/14/24 00:00 70 18 126/58 96 01/13/24 22:00 98.9 F 72 20 144/61 96 01/13/24 21:30 73 18 154/56 96 01/13/24 20:35 70 01/13/24 20:29 78 01/13/24 19:00 71 22 126/78 98 01/13/24 17:47 18 01/13/24 17:44 98.0 F 75 18 127/62 98 Intake and Output 01/13/24 01/14/24 01/14/24 22:59 06:59 14:59 Other: Weight 104.326 kg Results CBC & Chem 7: 01/14/24 07:31 01/14/24 07:31 Labs: Abnormal Lab Results - Last 24 Hours (Table) 01/13/24 01/13/24 01/13/24 Range/Units 18:10 18:10 18:10 RBC (3.80-5.40) m/uL Hgb 9.9 L (11.4-16.0) gm/dL Hct 33.0 L (34.0-46.0) % MCH 24.7 L (25.0-35.0) pg MCHC 30.0 L (31.0-37.0) g/dL PT 17.0 H (10.0-12.5) sec INR 1.7 H (<1.2) APTT (22.0-30.0) sec Chloride (98-107) mmol/L Carbon Dioxide 31 H (22-30) mmol/L BUN 25 H (7-17) mg/dL Creatinine 1.06 H (0.52-1.04) mg/dL Glucose 126 H (74-99) mg/dL POC Glucose (mg/dL) (70-110) mg/dL Troponin I (0.000-0.034) ng/mL Total Protein 5.9 L (6.3-8.2) g/dL Albumin 3.2 L (3.5-5.0) g/dL 01/13/24 01/13/24 01/13/24 Range/Units 18:10 21:18 23:38 RBC (3.80-5.40) m/uL Hgb (11.4-16.0) gm/dL Hct (34.0-46.0) % MCH (25.0-35.0) pg MCHC (31.0-37.0) g/dL PT (10.0-12.5) sec INR (<1.2) APTT (22.0-30.0) sec Chloride (98-107) mmol/L Carbon Dioxide (22-30) mmol/L BUN (7-17) mg/dL Creatinine (0.52-1.04) mg/dL Glucose (74-99) mg/dL POC Glucose (mg/dL) (70-110) mg/dL Troponin I 0.072 H* 0.079 H* 0.070 H* (0.000-0.034) ng/mL Total Protein (6.3-8.2) g/dL Albumin (3.5-5.0) g/dL 01/14/24 01/14/24 01/14/24 Range/Units 07:31 07:31 07:31 RBC 3.68 L (3.80-5.40) m/uL Hgb 9.1 L (11.4-16.0) gm/dL Hct 31.0 L (34.0-46.0) % MCH 24.9 L (25.0-35.0) pg MCHC 29.5 L (31.0-37.0) g/dL PT (10.0-12.5) sec INR (<1.2) APTT 31.0 H (22.0-30.0) sec Chloride 108 H (98-107) mmol/L Carbon Dioxide 31 H (22-30) mmol/L BUN 23 H (7-17) mg/dL Creatinine (0.52-1.04) mg/dL Glucose 110 H (74-99) mg/dL POC Glucose (mg/dL) (70-110) mg/dL Troponin I (0.000-0.034) ng/mL Total Protein 5.7 L (6.3-8.2) g/dL Albumin 3.0 L (3.5-5.0) g/dL 01/14/24 Range/Units 11:10 RBC (3.80-5.40) m/uL Hgb (11.4-16.0) gm/dL Hct (34.0-46.0) % MCH (25.0-35.0) pg MCHC (31.0-37.0) g/dL PT (10.0-12.5) sec INR (<1.2) APTT (22.0-30.0) sec Chloride (98-107) mmol/L Carbon Dioxide (22-30) mmol/L BUN (7-17) mg/dL Creatinine (0.52-1.04) mg/dL Glucose (74-99) mg/dL POC Glucose (mg/dL) 275 H (70-110) mg/dL Troponin I (0.000-0.034) ng/mL Total Protein (6.3-8.2) g/dL Albumin (3.5-5.0) g/dL
--- NOTE | 2024-01-14 12:12 | CA ---
Transthoracic Echo Report Name: Mar Loredo Age: 73 Gender: F : 1950 Exam Date: 01/14/2024 10:10 Exam Location: [facility] Ht (in): 66 Wt (lb): 230 Ordering Physician: Bryce Anthony MD ([id number]) Attending/Referring Phys: Palliative Medicine Physician Sirena Lemus RDCS Procedure CPT: Indications: history Cardiac Hx: Technical Quality: Poor Contrast 1: Definity Total Dose (mL): 2 Contrast 2: Total Dose (mL): MEASUREMENTS (Male / Female) Normal Values 2D ECHO LV Diastolic Diameter PLAX 5.1 cm 4.2 - 5.9 / 3.9 - 5.3 cm LV Systolic Diameter PLAX 4.0 cm IVS Diastolic Thickness 1.4 cm 0.6 - 1.0 / 0.6 - 0.9 cm LVPW Diastolic Thickness 1.5 cm 0.6 - 1.0 / 0.6 - 0.9 cm LV Relative Wall Thickness 0.6 RV Internal Dim ED PLAX 2.7 cm LVOT Diameter 1.8 cm LA Systolic Diameter LX 4.1 cm 3.0 - 4.0 / 2.7 - 3.8 cm LA Volume 110.5 cm??? 18 - 58 / 22 - 52 cm??? LA Volume Index 49.1 cm???/m??? 16 - 28 cm???/m??? M-MODE Aortic Root Diameter MM 2.9 cm LA Systolic Diameter MM 3.5 cm LA Ao Ratio MM 1.2 AV Cusp Separation MM 1.2 cm DOPPLER AV Peak Velocity 283.2 cm/s AV Peak Gradient 32.1 mmHg AV Mean Velocity 207.1 cm/s AV Mean Gradient 19.4 mmHg AV Velocity Time Integral 75.0 cm LVOT Peak Velocity 118.5 cm/s LVOT Peak Gradient 5.6 mmHg LVOT Velocity Time Integral 30.8 cm LVOT Stroke Volume 78.7 cm??? LVOT Stroke Volume Index 37.1 ml/m??? LVOT Cardiac Index 2763.6 cm???/min???m??? AV Area Cont Eq vti 1.0 cm??? AV Area Cont Eq pk 1.1 cm??? MV Area PHT 2.5 cm??? Mitral E Point Velocity 102.5 cm/s Mitral A Point Velocity 103.6 cm/s Mitral E to A Ratio 1.0 MV Deceleration Time 300.2 ms TR Peak Velocity 329.1 cm/s TR Peak Gradient 43.3 mmHg Right Ventricular Systolic Press 52.6 mmHg FINDINGS Left Ventricle Left ventricular ejection fraction is estimated at 55-60 %. Moderately increased septal wall thickness. Moderately increased posterior wall thickness. No obvious regional wall motion abnormalities. Left ventricular cavity size normal. Right Ventricle Mild right ventricular dilatation. Moderate to severe pulmonary hypertension. Right Atrium Moderate right atrial dilatation. Pacemaker wire in the right atrial cavity. Left Atrium Mildly increased left atrial diameter. Severely increased left atrial volume. Mildly increased left atrial area. Mitral Valve Structurally normal mitral valve. No mitral stenosis. Mild mitral regurgitation. Aortic Valve Aortic valve not well visualized. [id number] aortic stenosis with a peak gradient of 32 mmHg and a mean gradient of 19 mmHg. No aortic regurgitation. Tricuspid Valve Structurally normal tricuspid valve. Mild tricuspid regurgitation. Pulmonic Valve Structurally normal pulmonic valve. No pulmonic stenosis. Trace pulmonic regurgitation. Pericardium No pericardial or pleural effusion. Aorta Normal size aortic root and proximal ascending aorta. CONCLUSIONS LVH with preserved LV systolic function Inferoseptal hypokinesis RV enlargement with moderate to severe pulmonary hypertension Mild aortic stenosis Previewed by: Dr. Peewee Hickman MD (Electronically Signed) Final Date: 14 January 2024 12:12
[2024-01-14] MEDS: METOPROLOL SUCCINATE (ER) 25 MG TAB.ER.24H PO SCH (12:21)
[2024-01-14] MEDS: LEVOTHYROXINE 75 MCG TAB PO SCH (12:21)
[2024-01-14] MEDS: ASPIRIN 81 MG PO SCH (12:21)
[2024-01-14] MEDS: PANTOPRAZOLE 40 MG TABLET PO SCH (12:21)
[2024-01-14] MEDS: ATORVASTATIN 20 MG TAB PO SCH (12:21)
[2024-01-14 12:36] LABS: Glucose,Whole Blood 261 mg/dL (70-110)
[2024-01-14] MEDS: ENOXAPARIN 40 MG/0.4 ML SYRINGE SQ SCH (12:39)
[2024-01-14] MEDS: INSULIN ASPART (NovoLOG) 100 UNIT/ML VIAL SQ SCH ×3 (12:39→17:10)
[2024-01-14] MEDS: INSULIN DETEMIR (LEVEMIR) 100 UNIT/ML SYR SQ SCH ×2 (12:55→20:27)
[2024-01-14 17:00] LABS: Glucose,Whole Blood 219 mg/dL (70-110)
[2024-01-14] MEDS: WARFARIN 2 MG TAB PO ONE (18:01)
[2024-01-14] MEDS: SYMBICORT 160-4.5 MCG INHALER INHALATION SCH (20:04)
[2024-01-14] MEDS: BUDESONIDE 0.5 MG/2 ML NEBU INHALATION SCH (20:04)
[2024-01-14 20:18] LABS: Glucose,Whole Blood 168 mg/dL (70-110)
[2024-01-14] MEDS: MONTELUKAST 10 MG TAB PO SCH (20:23)
[2024-01-15 06:21] LABS: Glucose,Whole Blood 105 mg/dL (70-110)
[2024-01-15 08:01] LABS: African American GFR (CKD) >90 (>60 ml/min/1.73 sqM); Anion Gap 4 mmol/L; Blood Urea Nitrogen 19 mg/dL (7-17); Calcium 8.8 mg/dL (8.4-10.2); Carbon Dioxide 31 mmol/L (22-30); Chloride 105 mmol/L (98-107); Glucose 93 mg/dL (74-99); Non-African American GFR(CKD) 86 (>60 ml/min/1.73 sqM); Potassium 4.5 mmol/L (3.5-5.1); Sodium 140 mmol/L (137-145)
[2024-01-15 08:41] LABS: INR 1.2 (<1.2)
[2024-01-15] MEDS: LOSARTAN 50 MG TAB PO SCH (09:08)
[2024-01-15] MEDS: ISOSORBIDE MONONITRATE ER 30 MG TAB.ER.24H PO SCH (09:08)
[2024-01-15 09:45] VITALS: PULSE 72
[2024-01-15 10:27] VITALS: BP 107/51; RESP 18; TEMP 98.5
[2024-01-15 12:01] LABS: Glucose,Whole Blood 216 mg/dL (70-110)
--- NOTE | 2024-01-15 12:05 | P.PN ---
Subjective Progress Note Date: 01/15/24 History of present illness: This is a 73-year-old female with past medical history of COPD, diabetes, atrial fibrillation, hypertension. Patient presented to the hospital due to shortness of breath that been going on for several days. She was found to have elevated troponins with no definite pattern. EKG was a paced rhythm with extensive ST-T wave changes. CAT scan of the chest did not reveal any evidence of pulmonary embolism but there were significant changes of emphysema. Mild to moderate ath erosclerotic calcifications of the coronaries. Patient follows with a sheeter waxer operator out of town. She had a cardiac catheterization approximately 6 months ago that revealed no significant coronary artery disease. Echocardiogram at that time also revealed mild to moderate aortic stenosis with normal LV systolic function. Echocardiogram reveals EF of 55 to 60%, left ventricular hypertrophy. Inferior septal hypokinesis. RV enlargement with moderate to severe pulmonary hypertension. Mild aortic stenosis. Patient is seen today in follow-up. She denies having any shortness of breath or chest pain. She states she is feeling much better today. Repeat blood work reveals INR 1.2. Potassium 4.5, BUN 19 creatinine 0.67. Physical examination: Gen: This is a 73-year-old female in no acute distress VS: reviewed HEENT: Head is atraumatic, normocephalic. Pupils equal, round. Sclerae is anicteric. NECK: Supple. No JVD. LUNGS: Clear to auscultation. No wheezes or rhonchi. No intercostal retra ctions. HEART: Regular rate and rhythm. Systolic ejection murmur. ABDOMEN: Soft No tenderness. EXTREMITIES: No pedal edema. No calf tenderness. NEUROLOGICAL: Patient is awake, alert and oriented x3. Assessment: Non-ST elevated myocardial infarction Paroxysmal atrial fibrillation Sick sinus syndrome status post permanent pacemaker Shortness of breath probably related to COPD exacerbation. Moderate to severe pulmonary hypertension Mild aortic stenosis Plan: Continue patient's home cardiac medications Patient is cleared from cardiology for discharge home but would need bridging with Lovenox due to low INR. Patient to follow-up with her primary sheeter waxer operator in 1 to 2 weeks. Nurse practitioner note has been reviewed, I agree with documented findings and plan of care. Patient was seen and examined. Objective - Vital Signs Vital signs: Vital Signs Temp 98.0 F 01/15/24 00:32 Pulse 72 01/15/24 09:32 Resp 20 01/15/24 04:00 BP 151/67 01/15/24 04:00 Pulse Ox 96 01/15/24 09:17 FiO2 Intake & Output 01/14/24 01/15/24 01/15/24 18:59 06:59 18:59 Weight 104.326 kg Other: Voiding Method Toilet # Voids 2 - Labs CBC & Chem 7: 01/14/24 07:31 01/15/24 06:46 Labs: Abnormal Lab Results - Last 24 Hours (Table) 01/14/24 01/14/24 01/14/24 Range/Units 11:10 12:34 16:58 PT (10.0-12.5) sec INR (<1.2) Carbon Dioxide (22-30) mmol/L BUN (7-17) mg/dL POC Glucose (mg/dL) 275 H 261 H 219 H (70-110) mg/dL 01/14/24 01/15/24 01/15/24 Range/Units 20:17 06:46 06:46 PT 13.0 H (10.0-12.5) sec INR 1.2 H (<1.2) Carbon Dioxide 31 H (22-30) mmol/L BUN 19 H (7-17) mg/dL POC Glucose (mg/dL) 168 H (70-110) mg/dL
[2024-01-15] MEDS ORDERED: WARFARIN 2 MG TAB PO ONE (18:00)
--- NOTE | 2024-01-16 16:01 | P.DS ---
Providers Date of admission: 01/13/24 19:44 Expected date of discharge: 01/15/24 Attending physician: Kavon Selby Consults: 01/13/24 19:40 Consult Physician Routine Consulting Provider: Bryce Anthony Consult Reason/Comments: elevTrop Do you want consulting provider notified?: Yes Primary care physician: Maye Bah, DO Hospital Course: Final diagnosis -Shortness of breath may be related to COPD exacerbation on admission, Shortness of breath can be secondary to severe arctic stenosis as well -Acute on chronic hypercapnic and hypoxic respiratory failure -Severe aortic stenosis -Sick sinus syndrome with a pacemaker in place -Paroxysmal atrial fibrillation, patient is subtherapeutic INR -Type 2 diabetes mellitus with elevated uncontrolled blood sugars -Non-ST elevation myocardial infarction most probably type II from shortness of breath -Acute renal failure prerenal azotemia resolved at this time -Hyperlipidemia -Hypertension -Coronary disease with Stents in the past -Depression DVT prophylaxis: Lovenox Discharge disposition Patient is being discharged in a stable condition with guarded prognosis to home. Patient will follow-up with Dr. Bah in the outpatient setting upon discharge. Patient is to continue with current medications and close outpatient follow-up with cardiology and pulmonary as scheduled. Total time taken is greater than 35 minutes. Hospital course This is a 73-year-old female who was recently admitted with increasing shortness of breath multifactorial likely related to COPD exacerbation as well as severe aortic stenosis. Patient evaluated by cardiology with adjustments to medications made. Patient also continued on breathing inhalational treatments and will continue in the outpatient setting. Patient chronically wears oxygen outpatient and has her necessary supplies. Patient is adamant about going home and reports she has been cleared by cardiology. Please refer to cardiology notes for further HPI. Patient is subtherapeutic on INR with Coumadin therapy and recommend to take Coumadin 3 mg daily and will bridge with Lovenox with 150 mg daily for the next 1 week. Patient will need repeat labs in the next 2 to 3 days. Please refer to other consultation notes for further HPI. Currently no reports of chest pain, shortness of breath, or palpitations. Patient is afebrile. No reports of nausea or vomiting and patient is tolerating diet. Patient will be discharged home today. Guarded prognosis and high risk for readmissions given patient's significant comorbidities. Physical exam: Gen: This is a 73-year-old female who is awake, alert and oriented x 3, well- developed, well-nourished, obese, elderly appearing HEENT: Head is atraumatic, normocephalic. Pupils equal, round. Sclerae is anicteric. NECK: Supple. No JVD. No lymphadenopathy. No thyromegaly. LUNGS: Diminished breath sounds bilaterally with scattered rhonchi and faint crackles noted. No intercostal retractions. HEART: Regular rate and rhythm. No murmur. ABDOMEN: Soft. Obese bowel sounds are present. No masses. No tenderness. EXTREMITIES: No pedal edema. No calf tenderness. NEUROLOGICAL: Patient is awake, alert and oriented x3. Cranial nerves 2 through 12 are grossly intact. Diffusely weak Please refer to medication reconciliation sheet for a list of medications. The impression and plan of care has been dictated by Anushka Soriano, Nurse Practitioner as directed. Dr. John MD I have performed a history and examination and MDM of this patient, discussed the same with the dictator, and agree with the dictator's assessment and plan as written ,documented as a scribe. Based on total visit time, I have performed more than 50% of the visit. Patient Condition at Discharge: Poor Plan - Discharge Summary Discharge Rx Participant: No New Discharge Prescriptions: New Losartan [Cozaar] 50 mg PO DAILY #30 tab Enoxaparin [Lovenox] 150 mg SQ DAILY 7 Days #7 each Continue Aspirin EC [Ecotrin Low Dose] 81 mg PO DAILY Levothyroxine Sodium [Synthroid] 75 mcg PO DAILY metFORMIN HCL [Glucophage] 1,000 mg PO BID Metoprolol Succinate (ER) [Toprol XL] 25 mg PO DAILY Montelukast Sodium 10 mg PO HS Omeprazole [PriLOSEC] 20 mg PO DAILY Rosuvastatin [Crestor] 10 mg PO DAILY glipiZIDE [glipiZIDE ER] 10 mg PO DAILY Budesonide/Formoterol Fumarate [Breyna 160-4.5 Mcg Inhaler] 2 puff INHALATION RT-BID Insulin Aspart [NovoLOG Flexpen] 10 units SQ AC-LUNCH Insulin Aspart [NovoLOG Flexpen] 15 units SQ AC-SUPPER Isosorbide Mononitrate ER [Imdur] 30 mg PO DAILY Budesonide [Pulmicort] 0.5 mg INHALATION RT-BID Insulin Glargine,Hum.rec.anlog [Lantus Solostar Pen] 44 units SQ HS Insulin Glargine,Hum.rec.anlog [Lantus Solostar Pen] 30 units SQ DAILY Changed Warfarin Sodium [Jantoven] 3 mg PO DAILY #0 Discontinued Warfarin Sodium [Jantoven] 2 mg PO WESA@2100 Losartan Potassium [Cozaar] 100 mg PO DAILY hydroCHLOROthiazide [Hydrodiuril] 25 mg PO DAILY Digoxin 250 mcg PO DAILY Discharge Medication List Aspirin EC [Ecotrin Low Dose] 81 mg PO DAILY 04/01/21 [History] Budesonide [Pulmicort] 0.5 mg INHALATION RT-BID 06/22/23 [History] Insulin Glargine,Hum.rec.anlog [Lantus Solostar Pen] 30 units SQ DAILY 06/22/23 [History] Insulin Glargine,Hum.rec.anlog [Lantus Solostar Pen] 44 units SQ HS 06/22/23 [History] Isosorbide Mononitrate ER [Imdur] 30 mg PO DAILY 06/22/23 [History] Levothyroxine Sodium [Synthroid] 75 mcg PO DAILY 06/22/23 [History] Metoprolol Succinate (ER) [Toprol XL] 25 mg PO DAILY 06/22/23 [History] Montelukast Sodium 10 mg PO HS 06/22/23 [History] Omeprazole [PriLOSEC] 20 mg PO DAILY 06/22/23 [History] Rosuvastatin [Crestor] 10 mg PO DAILY 06/22/23 [History] metFORMIN HCL [Glucophage] 1,000 mg PO BID 06/22/23 [History] Budesonide/Formoterol Fumarate [Breyna 160-4.5 Mcg Inhaler] 2 puff INHALATION RT-BID 01/13/24 [History] Insulin Aspart [NovoLOG Flexpen] 10 units SQ AC-LUNCH 01/13/24 [History] Insulin Aspart [NovoLOG Flexpen] 15 units SQ AC-SUPPER 01/13/24 [History] glipiZIDE [glipiZIDE ER] 10 mg PO DAILY 01/13/24 [History] Enoxaparin [Lovenox] 150 mg SQ DAILY 7 Days #7 each 01/15/24 [Rx] Losartan [Cozaar] 50 mg PO DAILY #30 tab 01/15/24 [Rx] Warfarin Sodium [Jantoven] 3 mg PO DAILY #0 01/15/24 [Rx] Follow up Appointment(s)/Referral(s): Avinash Vincent DO [REFERRING] - 1 Week (Call to set up appointment to be seen in 1 week ) Maye Bah DO [Primary Care Provider] - 1-2 days (Call to set up appointment to be seen in 1-2 days ) Ambulatory/Diagnostic Orders: Prothrombin Time INR [LAB.AMB] Time Frame: 4 Days, Location: None Selected Patient Instructions/Handouts: Heart Attack (DC) Activity/Diet/Wound Care/Special Instructions: Okay for discharge Activity limited until follow-up Follow-up with your crane helper this week Continue with Coumadin 3 mg daily Continue Lovenox bridging 150 mg daily Repeat PT/INR labs in 4 days Follow-up with primary care provider on discharge Discharge Disposition: HOME SELF-CARE
== END 2024-01-15 13:14 | disposition home or self-care (01) ==
LOC: EC 17:41 → 3SCARD 19:44 → INTOOBSV 19:44 → 3SCARD 01-14 17:01 → UNDODISIN 01-15 13:14
PROVIDERS: ADMIT Hospitalist; ATTEND Hospitalist
DX: I21.4 Non-ST elevation (NSTEMI) myocardial infarction (principal); J96.22 Acute and chronic respiratory failure with hypercapnia; J96.21 Acute and chronic respiratory failure with hypoxia; N17.9 Acute kidney failure, unspecified; J43.9 Emphysema, unspecified; I35.0 Nonrheumatic aortic (valve) stenosis; I48.0 Paroxysmal atrial fibrillation; I10 Essential (primary) hypertension; E11.65 Type 2 diabetes mellitus with hyperglycemia; R79.1 Abnormal coagulation profile; I25.10 Atherosclerotic heart disease of native coronary artery without angina pectoris; I27.20 Pulmonary hypertension, unspecified; I49.5 Sick sinus syndrome; E78.5 Hyperlipidemia, unspecified; F41.9 Anxiety disorder, unspecified; Z79.82 Long term (current) use of aspirin; Z79.4 Long term (current) use of insulin; Z79.890 Hormone replacement therapy; Z79.84 Long term (current) use of oral hypoglycemic drugs; Z79.01 Long term (current) use of anticoagulants; Z95.0 Presence of cardiac pacemaker; Z87.891 Personal history of nicotine dependence; Z95.5 Presence of coronary angioplasty implant and graft
CPT/HCPCS: 96372 ×2; 96376; 96361 ×2; 96365; 96366; 99291; 36415; 94640 ×4; 94760 ×2; 93005; 93306; 85379; 83880; 80053 ×2; 80048; 83735 ×2; 84100; 84484; 85025 ×2; 85610 ×2; 85730 ×2; 83036; 71275; G0378 ×3; J1650 ×2; J1644 ×2; Q9967